=== PATIENT | male | born 1955 | race African-American/Black ===

== ENCOUNTER 2019-04-30 18:14 | Inpatient (IN) ==
[2019-04-30 19:17] LABS: BASO# 0.02 X1000 (0.0-0.2); BASO% 0.3 % (0.0-0.8); EOS# 0.02 X1000 (0.0-0.7); EOS% 0.3 % (0.0-10.0); HEMATOCRIT 35.5 % (42.0-52.0); IMM GRAN# 0.02 X1000 (0.0-0.04); IMM GRAN% 0.3 % (0.0-0.5); LYMPH# 1.11 X1000 (1.2-3.4); LYMPH% 17.4 % (20.5-51.1); MCH 30.7 PG (27-31); MCHC 33.8 g/dL (33-37); MCV 90.8 FL (81-99); MONO# 0.78 X1000 (0.11-0.59); MONO% 12.2 % (1.7-9.3); MPV 8.9 FL (7.4-10.4); NEUT# 4.42 X1000 (1.4-6.5); NEUT% 69.5 % (42.2-75.2); PLT 233 X1000 (130-400); RBC 3.91 XMIL (4.7-6.1); RDW 13.7 % (11.5-14.5); WBC 6.37 X1000 (4.8-10.8)
[2019-04-30 19:36] LABS: AGAP 19; ALBUMIN 4.2 g/dL (3.5-5.0); ALKALINE PHOSPHATASE 83 U/L (32-122); BUN 9 mg/dL (8-22); CALCIUM 8.5 mg/dL (8.8-10.2); CHLORIDE 94 mmol/L (98-107); CK PROFILE 202 U/L (24-204); COSMO 269; CREATININE 0.7 mg/dL (0.7-1.2); ESTIMATED GFR > 60; GLUCOSE 127 mg/dL (70-104); GOT 79 U/L (10-34); GPT 31 U/L (10-44); MAGNESIUM 1.6 mg/dL (1.5-2.7); POTASSIUM 3.7 mmol/L (3.5-5.1); SODIUM 134 mmol/L (136-145); TCO2 22 mmol/L (25-35); TOTAL PROTEIN 7.5 g/dL (6.3-8.3)
[2019-04-30] MEDS ORDERED: NS 1,000 ML IV ONE (20:25)
--- NOTE | 2019-04-30 20:26 | PROVIDER DOCUMENTATION ---
This chart was entered by Lizabeth Sandoval Scribe, acting as scribe for Haris Bryant MD. HPI-Syncope/Dizziness - General Chief Complaint: Syncope Stated Complaint: PASSING OUT, BODY NUMB Time Seen by Provider: 04/30/19 19:05 Source: patient Allergies/Adverse Reactions: Patient Allergies Allergy/AdvReac Type Severity Reaction Status Date / Time No Known Allergies Allergy Verified 04/30/19 18:45 Home Medications: Home Medication List Medication Instructions Recorded Confirmed Last Taken Type Clindamycin [Cleocin] 300 mg PO Q6HR #30 capsule 07/25/17 Unknown Rx - History of Present Illness-Syncope/Dizzy Nature of Presenting Problem: pt is a 63 yr old male presenting with complaint of dizziness, fall, right knee pain, pt reports intermittent dizziness today, fall at 0930 this am onto right knee. pt reports no recollection of fall, just found self on the floor and his knee hurt. pt denies any other pain or injury. Prior Episodes: reports: multiple episodes today Onset/Duration: reports: this morning (0930) Timing: reports: intermittent Position/Activity at time of episode: reports: standing Symptoms prior to episode: reports: lightheaded. denies: nausea/vomiting, confusion, rapid heart beat Context: reports: lost consciousness, collapsed Loss of Consciousness: brief (seconds) Location of injury. (If syncope resulted in an injury.): reports: RLE (right knee) Current Symptoms: reports: weakness, lightheaded, dizzy Recently Seen Here or By Another Healthcare Provider: No - Dizziness Severity in ED: reports: mild Dizziness Related Current/Associated Symptoms: reports: weakness, lightheaded, dizzy Any recent trauma/injury?: reports: minor (knee) Modifying Factors: improves with: nothing Patient usually:: reports: walks without assistance Review of Systems - Adult - REVIEW OF SYSTEMS - ADULT Constitutional: reports: fatique. denies: chills, fever Eyes: denies: blurred vision, double vision Ears, Nose, Mouth & Throat: reports: no symptoms reported Cardiovascular: reports: syncope. denies: chest pain, palpitations Respiratory: denies: cough, shortness of breath Gastrointestinal: denies: abdominal pain, diarrhea, nausea, vomiting Genitourinary: denies: dysuria, frequency, flank pain Musculoskeletal: denies: back pain, joint pain, neck pain Integumentary: reports: no symptoms reported Neurological: reports: dizziness/vertigo. denies: headache/migraines, syncope Psychiatric: reports: no symptoms reported Endocrine: reports: no symptoms reported Hematologic/Lymphatic: reports: no symptoms reported Allergic/Immunologic: reports: no symptoms reported All Other Systems: Reviewed and Negative Past History - Adult - PAST MEDICAL HISTORY-ADULT Review of Records: reports: Old Records Reviewed, Nursing Assessment Review, Medications Reviewed, Social history reviewed & non-contributory. Major Childhood Illnesses: reports: denies history Cardiovascular: reports: HTN Respiratory: reports: COPD Gastrointestinal: reports: denies history Obstetrical/Gynecological: reports: denies history Genitourinary: reports: denies history Musculoskeletal: reports: denies history Neurological: reports: denies history Endocrine/Immune: reports: denies history Other Conditions: reports: denies history - PRIOR SURGERIES/PROCEDURES Surgical/Procedure History: reports: reviewed, not pertinent - IMMUNIZATION STATUS Childhood Immunizations: See Nurse Assessment Flu Vaccine: See Nurse Assessment - FAMILY HISTORY Family History: reviewed, not pertinent - SOCIAL HISTORY Substance Use: alcohol Alcohol Use Frequency: every day (1pt liquor, 6pk beer daily) Living Situation: family Physical Exam-General - PHYSICAL EXAM-ADULT Initial Vital Signs Reviewed: Yes - CONSTITUTIONAL General Appearance: appears well, alert, no apparent distress - EYES Eyes: PERRL/EOMI - HEAD, EARS, NOSE, MOUTH & THROAT HENMT: normocephalic/atraumatic, moist mucous membranes - NECK Neck: non-tender, full range of motion, supple, normal inspection - RESPIRATORY Respiratory: chest non-tender, lungs clear, normal breath sounds, no respiratory distress, no accessory muscle use - CARDIOVASCULAR Cardiovascular: normal peripheral pulses, regular rate, rhythm - GASTROINTESTINAL (ABDOMEN) Abdominal Exam: normal bowel sounds, non tender, soft - LYMPHATIC Lymphatic: no adenopathy - MUSCULOSKELETAL Back Exam: normal inspection, no CVA tenderness, no vertebral tenderness Extremity: joint effusion (right knee), tenderness (right knee). negative: normal range of motion (decreased ROM right knee), deformity - SKIN Integumentary: normal color, normal turgor, warm/dry - NEUROLOGIC Neurologic: grossly normal - PSYCHIATRIC Psych/Mental Status: normal mood/affect Progress - PLAN OF CARE/RESULTS Progress/Plan/Lab Results: Vital Signs - 8 hr 04/30/19 18:25 04/30/19 19:25 04/30/19 19:45 Temperature 98 F Pulse Rate 86 92 H Pulse Rate [Sitting] 98 H Pulse Rate [Standing] 110 H Pulse Rate [Supine] 100 H Respiratory Rate 18 Blood Pressure 170/79 139/77 Blood Pressure [Sitting] 133/83 Blood Pressure [Standing] 98/60 Blood Pressure [Supine] 145/86 O2 Sat by Pulse Oximetry 98 99 Laboratory Results - last 24 hr 04/30/19 04/30/19 04/30/19 19:01 19:01 19:01 WBC 6.37 RBC 3.91 L Hgb 12.0 L Hct 35.5 L MCV 90.8 MCH 30.7 MCHC 33.8 RDW Std Deviation 13.7 Plt Count 233 MPV 8.9 Immature Gran % (Auto) 0.3 Neut % (Auto) 69.5 Lymph % (Auto) 17.4 L [place] % (Auto) 12.2 H Eos % (Auto) 0.3 Baso % (Auto) 0.3 Immature Gran # (Auto) 0.02 Neut # (Auto) 4.42 Lymph # (Auto) 1.11 L [place] # (Auto) 0.78 H Eos # (Auto) 0.02 Baso # (Auto) 0.02 Sodium 134 L Potassium 3.7 Chloride 94 L Carbon Dioxide 22 L Anion Gap 19 BUN 9 Creatinine 0.7 Estimated GFR/1.73 m2 > 60 BUN/Creatinine Ratio 13 Glucose 127 H POC Glucose Calculated Osmolality 269 Calcium 8.5 L Magnesium 1.6 Total Bilirubin 0.40 AST 79 H ALT 31 Alkaline Phosphatase 83 Creatine Kinase 202 Troponin T Total Protein 7.5 Albumin 4.2 Globulin 3.0 Albumin/Globulin Ratio 1.0 Plasma/Serum Ethyl Alc 75 H 04/30/19 04/30/19 19:01 19:14 WBC RBC Hgb Hct MCV MCH MCHC RDW Std Deviation Plt Count MPV Immature Gran % (Auto) Neut % (Auto) Lymph % (Auto) [place] % (Auto) Eos % (Auto) Baso % (Auto) Immature Gran # (Auto) Neut # (Auto) Lymph # (Auto) [place] # (Auto) Eos # (Auto) Baso # (Auto) Sodium Potassium Chloride Carbon Dioxide Anion Gap BUN Creatinine Estimated GFR/1.73 m2 BUN/Creatinine Ratio Glucose POC Glucose 129 H Calculated Osmolality Calcium Magnesium Total Bilirubin AST ALT Alkaline Phosphatase Creatine Kinase Troponin T < 0.010 Total Protein Albumin Globulin Albumin/Globulin Ratio Plasma/Serum Ethyl Alc Orders Category Date Time Status ED: Orthostatic Vital Signs (E DIRECTED Care 04/30/19 19:21 Active Finger Stick Blood Sugar (ED) DIRECTED Care 04/30/19 18:31 Completed Orthostatic Vital Signs NOW Care 04/30/19 18:31 Active Saline Loc NOW Care 04/30/19 18:[address] HEAD W/O CONTRAST [CT] Stat Exams 04/30/19 19:21 Completed KNEE 3 VIEWS RIGHT [RAD] Stat Exams 04/30/19 19:21 Completed ALCOHOL BLOOD Stat Lab 04/30/19 19:01 Completed CBC WITH DIFF [HEME] Stat Lab 04/30/19 19:01 Completed CK PROFILE [SP CHEM] Stat Lab 04/30/19 19:01 Completed COMPREHENSIVE METABOLIC PANEL [CHEM] Stat Lab 04/30/19 19:01 Completed MAGNESIUM [CHEM] Stat Lab 04/30/19 19:01 Completed TROPONIN T Stat Lab 04/30/19 19:01 Completed UA NIMS W/REFLEX CULT PL [URINALYSIS] Stat Lab 04/30/19 18:33 Uncollected URINE DRUG SCREEN PL Stat Lab 04/30/19 18:33 Uncollected 0.9% Sodium Chloride Inj [Ns] 1,000 ml Med 04/30/19 20:25 Active IV 999 mls/hr EKG [EKG] Stat Ther 04/30/19 18:31 Ordered Result Diagrams: 04/30/19 19:01 04/30/19 19:01 - XRAY 1 XRAY: Right XRAY Study: Knee Impression: Abnormal (Signed EXAM: KNEE 3 VIEWS RIGHT - 04/30/2019 HISTORY: FALL TECHNIQUE: Right knee three views COMPARISON: None. FINDINGS: There is fracture of the patella which appears to be comminuted but is nondisplaced. There is no other fracture or dislocation identified. There is thickening of the suprapatellar bursa consistent with joint effusion or hemorrhage. There are mild degenerative changes. There are atherosclerotic calcifications noted. IMPRESSION: Fracture of patella. Electronically signed by Uzair Grissom 04/30/2019 8:25 PM 04/30/192024 Interpreting Physician: Uzair Grissom MD Dictated Date/Time: 04/30/192023 cc: Haris Bryant MD; None,PCP) Comparison with other Films: no prior study - CT/MRI 1 CT Study: Head Impression: Normal (Signed EXAM: CT HEAD W/O CONTRAST - 04/30/2019 HISTORY: SYNCOPE TECHNIQUE: CT head without contrast COMPARISON: None. FINDINGS: There is no evidence of intracranial hemorrhage, mass effect, midline shift, or hydrocephalus. There is no evidence of infarct, although acute infarcts may not be immediately visible. There is no evidence of skull fracture. The skull is possibly osteopenic. IMPRESSION: No visible acute intracranial abnormality. No hemorrhage or mass effect. The skull is possibly osteopenic. This exam was performed using automated exposure control, adjustment of mA or kV according to patient size, and/or use of iterative reconstruction technique. Electronically signed by Uzair Grissom 04/30/2019 8:24 PM 04/30/192023 Interpreting Physician: Uzair Grissom MD Dictated Date/Time: 04/30/192020 cc: Haris Bryant MD; None,PCP) Comparison with other Films: no prior study - CONSULTS/PCP/HOSPITALIST Notification #1 *Consult/PCP/Hospitalist*: DR BYERS Time Discussed: 20:57 Reason/Comments: ADVISED KNEE IMMOBILIZER, F/U IN OFFICE Consult Disposition: F/U in office #2 Consult: DR BA Time Discussed: 21:06 Consult Disposition: Admit (OBSERVATION) Departure - Departure Date of Disposition Decision: 04/30/19 Time of Disposition Decision: 21:06 DIAGNOSIS: Orthostatic hypotension, Closed fracture of right patella Disposition: ADMITTED INPATIENT 09 Certified Medical Emergency: Emergent Condition: Stable Referrals and Follow-Ups: None,PCP [Primary Care Provider] - - Critical Care Note This patient required my direct & personal management of CC.: No Attestation - Physician/ COMPA Attestation Patient care was provided by Advanced Practice Provider:: No The physician spent face to face time with patient:: Yes Advanced Practice Provider documentation review:: Supervising physician onsite and consulted in the evaluation and care of this patient. The physician did have a face to face encounter with the patient. This chart was documented by the indicated scribe, (Lizabeth Sandoavl Scribe) and accurately reflects the services I performed and decisions made by me, Haris Bryant MD, as attested by the provider's signature.
[2019-04-30 21:49] LABS: BILIRUBIN URINE NEGATIVE (NEGATIVE); BLOOD URINE 1+ (NEGATIVE); CLARITY CLEAR (CLEAR); COLOR YELLOW; GLUCOSE URINE NEGATIVE (NEGATIVE); KETONE URINE TRACE mg/dL (NEGATIVE); LEUKOCYTES URINE NEGATIVE (NEGATIVE); NITRITE URINE NEGATIVE (NEGATIVE); PROTEIN URINE TRACE mg/dL (NEGATIVE); SP GRAVITY URINE 1.015; URINE BACTERIA NEGATIVE /HFP; URINE CAST NONE SEEN /LPF; URINE CRYSTAL NONE SEEN /HPF; URINE EPITHELIAL CELLS <10 /HPF (<10); URINE RBC <10 /HPF (<10); URINE SOURCE CLEAN CATCH; URINE WBC <10 /HPF (<10); URINE YEAST NONE SEEN /HPF; UROBILINOGEN URINE 1 mg/dL
[2019-04-30 22:02] LABS: UR AMPHETAMINES QUAL NONE DETECTED (NONE DETECT); UR BARBITUATES QUAL NONE DETECTED (NONE DETECT); UR BENZODIAZEPIN QUAL NONE DETECTED (NONE DETECT); UR CANNABINOIDS QUAL NONE DETECTED (NONE DETECT); UR COCAINE QUAL NONE DETECTED (NONE DETECT); UR METHADONE QUAL NONE DETECTED (NONE DETECT); UR METHAMPHETAMINE QUAL NONE DETECTED (NONE DETECT); UR OPIATES QUAL NONE DETECTED (NONE DETECT); UR OXYCODONE QUAL NONE DETECTED (NONE DETECT); UR PCP QUAL NONE DETECTED (NONE DETECT); UR PROPOXYPHENE QUAL NONE DETECTED (NONE DETECT); UR TCA QUAL NONE DETECTED (NONE DETECT)
[2019-05-01] MEDS ORDERED: NICODERM PATCH TD ONE (00:28)
[2019-05-01] MEDS: PRINIVIL PO SCH (08:26)
[2019-05-01] MEDS: LIBRIUM PO SCH ×3 (09:27→21:47)
[2019-05-01] MEDS ORDERED: ZOFRAN IV PRN (09:31)
[2019-05-01] MEDS ORDERED: TYLENOL PO PRN (09:31)
--- NOTE | 2019-05-01 11:00 | HISTORY AND PHYSICAL ---
PRIMARY CARE PHYSICIAN: None. CHIEF COMPLAINT: Syncope with fall. HISTORY OF PRESENT ILLNESS: Mr. Tijerina is a 63-year-old -Prydeinig male who presented to the ER with past medical history of COPD, hypertension, arthritis to the left hip, ETOH abuse and nicotine dependency. The patient states that he was at home at about 9:30 in the morning and when he stood up, he became dizzy and fell. He actually hit his head and his lip and stated that he hurt his right knee. The patient decided to come to the ER at that time. is in the room and stated that when the patient was in the ER waiting room, the patient had some kind of episode where he became very diaphoretic and his eyes rolled in the back of his head and his fingers curled. The patient was unresponsive less than a minute. The was able to shake him and eventually get him to wake back up. The patient has not had any episodes since then. Laboratory findings in the ER show a sodium of 134, plasma alcohol level was 75. Urine drug screen is negative. X-ray of the right knee shows a fracture of the patella. CT of the head shows no acute abnormality. PAST MEDICAL HISTORY: COPD, hypertension, arthritis to the left hip, ETOH abuse, nicotine dependency. PAST SURGICAL HISTORY: Surgery to the left 3rd digit for work-related injury. FAMILY HISTORY: Mother is positive for [place], diabetes and hypertension. SOCIAL HISTORY: The patient lives with his in [place]. 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 States he drinks 1 pint of alcohol per day. Smokes 2 packs of cigarettes per day. Denies any drug abuse. ALLERGIES: No known drug allergies. MEDICATIONS: No home medications. LABS AND DIAGNOSTICS: White blood cell count 6.37, red blood cell count 3.91, hemoglobin 12, hematocrit 35.5, platelet count is 233,000. Sodium 134, potassium 3.7, chloride 94, carbon dioxide 22, BUN is 9, creatinine is 0.7, GFR is greater than 60, glucose is 127, calcium is 8.5, magnesium is 1.6, total bilirubin is 0.4, AST is 79, ALT is 31, alkaline phosphatase is 83, creatine kinase is 202, troponin is less than 0.01. Urinalysis shows trace protein and 1+ blood. Urine toxicology is negative. Plasma alcohol level is 75. X-ray to the right knee shows a fracture of the patella. Head CT shows no visible acute intracranial abnormality. REVIEW OF SYSTEMS: The patient is awake, alert, and oriented. He denies any fevers, chills, night sweats, or weight loss, lethargy, malaise, or fatigue. There are no rashes, bruising. There is a small area to his lip from fall. There is no trauma to the head. The patient did have some complaints of dizziness when he fell. He denies a headache. States he did have a syncopal episode when he fell that lasted less than a minute. The patient denies any seizures. The patient denies any blurred vision, photophobia, or acute visual changes. Denies any tinnitus, pain to the ears or any hearing changes. There are no lumps or swelling of the neck area or pain or stiffness. The patient denies any excessive thirst, increased urination. The patient denies any palpitations, or chest pain, orthopnea, or leg edema. The patient denies a cough, dyspnea, or hemoptysis. The patient denies any nausea, vomiting, diarrhea or constipation. The patient denies any hematuria or dysuria. The patient is positive for joint pain to the left hip and the right knee. States he has had some weakness noted from his left hip area. The patient denies any bruising. The patient denies any depression or anxiety. PHYSICAL EXAMINATION: VITAL SIGNS: Temperature 98.7 degrees, pulse rate 83, respiratory rate 20, blood pressure 195/94, O2 saturation 100% on room air. Weight 145 pounds, height 5 feet 11 inches. GENERAL: This is a 63-year-old -Prydeinig male. He is lying in the bed. He is in no acute distress. He is well nourished and well developed. HEENT: Normocephalic. There is a small place to the lip area from trauma. Pupils are equal, round, reactive to light. Sclerae is anicteric. Extraocular movements are intact. Mucous membranes are moist. NECK: Supple. No lymphadenopathy. Trachea is midline. No JVD. CARDIOVASCULAR: Regular rate and rhythm. No murmurs, gallops, or rubs appreciated. RESPIRATORY: Lung sounds are clear with equal chest excursion. Respirations are nonlabored with no accessory muscle usage. GI: Abdomen is soft, nontender, nondistended. Bowel sounds are present x4. NEUROLOGIC: Cranial nerves 2-12 intact. The patient is awake, alert, and oriented. Follows all commands. No abnormalities noted. MUSCULOSKELETAL: Full distal strength noted. No abnormalities of gaits. No deformity. EXTREMITIES: There is no clubbing, no cyanosis, no edema. DP and PT pulses are present and palpable. SKIN: Warm and dry. There is no rashes or bruises. No diaphoresis. ASSESSMENT AND PLAN: 1. Syncopal episode. We will admit this patient to the medical floor. We have administered a bolus of IV fluid in the ER. We will continue IV fluids for hydration with normal saline at 75 mL an hour. We will monitor the patient's vital signs. 2. Patellar fracture. Dr. Mares was called. He recommended the patient to be placed in a knee brace and to follow up with the patient outpatient. The patient does have a knee brace noted to the right leg at this time. I have consulted Physical Therapy to help with ambulation with this patient. The patient will follow up with Dr. Mares outpatient as recommended by him. 3. Hypertension. We will start this patient on lisinopril 10 mg p.o. daily. We will monitor his blood pressure routinely. 4. ETOH abuse. We will start the patient on Librium 25 mg p.o. q.6 hours. We are also replacing his thiamine 100 mg p.o. daily and folate 1 mg p.o. daily. We will also place the patient on IV fluid hydration of normal saline at 75 mL an hour. I have provided the patient with ETOH cessation information. 5. Nicotine dependency. We provided smoking cessation to the patient. We have also started him on a nicotine patch daily. 6. Gastrointestinal prophylaxis. Start this patient on Prilosec 40 mg p.o. daily. 7. DVT prophylaxis. Place this patient on ADALID hose. We will ambulate this patient per physical therapy. We have admitted this patient to the medical floor. We have started him on IV fluid hydration, normal saline at 75 mL an hour. We are replacing his thiamine and folic acid. We are also placing him on Librium 25 mg p.o. q.6 hours. Physical therapy has been consulted for ambulation. He has a knee brace on his right knee as recommended by Dr. Mares. He will follow up with Dr. Mares outpatient. All further treatment pending hospital course and lab data. Dictated by DONALD Doss for Gilmer Radford MD cc: Gilmer Radford MD MTDD
[2019-05-01] MEDS: FOLIC ACID PO SCH (11:16)
[2019-05-01] MEDS: VITAMIN B-1 PO SCH (11:16)
[2019-05-01] MEDS: NICODERM PATCH TD SCH (11:16)
[2019-05-01] MEDS: PRILOSEC PO SCH (11:16)
[2019-05-01] MEDS: NS 1,000 ML IV SCH (11:17)
[2019-05-01] MEDS: NORCO-5 PO PRN ×2 (12:12→18:11)
--- NOTE | 2019-05-01 17:49 | HISTORY AND PHYSICAL ---
ADDENDUM: Patient seen and examined by myself. Full note dictated and discussed with nurse practitioner. Patient presented to the hospital, apparently had a syncopal episode and fell. He has patellar fracture on his right knee. Blood pressure is elevated at 192/96. The patient also has a longstanding history of alcoholism, has been drinking for 40 years. I expect this has a lot to do with this syncopal episode. We are going to admit him to the hospital, place him on telemetry, check an echocardiogram. We will attempt better blood pressure control. We will place him on Librium to attempt to prevent withdrawal. Further orders as needed. Please see full note. cc: Gilmer Radford MD
[2019-05-02] MEDS: NORCO-5 PO PRN ×2 (00:14→19:50)
[2019-05-02] MEDS: NS 1,000 ML IV SCH ×3 (00:14→20:00)
[2019-05-02] MEDS ORDERED: LIBRIUM PO ONE ×2 (02:20→02:22)
[2019-05-02] MEDS ORDERED: ATIVAN IV ONE ×2 (02:35→02:48)
[2019-05-02] MEDS ORDERED: ATIVAN ONE (02:39)
[2019-05-02] MEDS ORDERED: HALDOL IV ONE (02:49)
[2019-05-02] MEDS: LIBRIUM PO SCH ×4 (03:44→20:44)
[2019-05-02 05:45] LABS: BASO# 0.01 X1000 (0.0-0.2); BASO% 0.2 % (0.0-0.8); EOS# 0.01 X1000 (0.0-0.7); EOS% 0.2 % (0.0-10.0); HEMATOCRIT 34.6 % (42.0-52.0); HEMOGLOBIN 11.4 g/dL (14.0-18.0); IMM GRAN# 0.03 X1000 (0.0-0.04); IMM GRAN% 0.5 % (0.0-0.5); LYMPH# 0.59 X1000 (1.2-3.4); LYMPH% 8.9 % (20.5-51.1); MCH 30.1 PG (27-31); MCHC 32.9 g/dL (33-37); MCV 91.3 FL (81-99); MONO% 12.1 % (1.7-9.3); MPV 9.6 FL (7.4-10.4); NEUT# 5.17 X1000 (1.4-6.5); NEUT% 78.1 % (42.2-75.2); PLT 179 X1000 (130-400); RBC 3.79 XMIL (4.7-6.1); RDW 13.3 % (11.5-14.5); WBC 6.61 X1000 (4.8-10.8)
[2019-05-02 06:11] LABS: AGAP 13; BUN 5 mg/dL (8-22); CALCIUM 8.4 mg/dL (8.8-10.2); CHLORIDE 94 mmol/L (98-107); COSMO 262; CREATININE 0.7 mg/dL (0.7-1.2); ESTIMATED GFR > 60; GLUCOSE 98 mg/dL (70-104); MAGNESIUM 1.6 mg/dL (1.5-2.7); POTASSIUM 3.1 mmol/L (3.5-5.1); SODIUM 132 mmol/L (136-145); TCO2 26 mmol/L (25-35)
[2019-05-02] MEDS: PRILOSEC PO SCH (06:13)
[2019-05-02] MEDS ORDERED: KLOR-CON PO ONE (07:32)
[2019-05-02] MEDS ORDERED: ATARAX PO PRN (09:29)
[2019-05-02] MEDS ORDERED: BENTYL PO PRN (09:29)
[2019-05-02] MEDS ORDERED: SALINE LOCK IV FLUID XX ONE (09:29)
[2019-05-02] MEDS ORDERED: M.V.I.-12 10 ML, FOLIC ACID 1 MG, MAGNESIUM SULFATE 1 GM, THIAMINE 100 MG in NS 1,000 ML IV ONE (11:00)
[2019-05-02] MEDS: NICODERM PATCH TD SCH (11:57)
[2019-05-02] MEDS: PRINIVIL PO SCH (11:59)
[2019-05-02] MEDS: FOLIC ACID PO SCH (12:00)
[2019-05-02] MEDS: VITAMIN B-1 PO SCH (12:01)
--- NOTE | 2019-05-02 14:18 | PROGRESS NOTE ---
DATE: 05/02/2019 SUBJECTIVE: Patient currently is sedated. 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 He became agitated, blood pressure elevated, heart rate into the 160s and 180s. He was yelling, screaming, combative. We had already had him on Librium, but unfortunately this does not appear to be adequate enough. We increased his Ativan to 1 mg IV. Again, this was not enough to assist with his alcohol withdrawal, and he was given 2 more mg of Ativan and Haldol. Finally, he was able to calm down, and heart rate dropped. Apparently prior to coming to the ER, unbeknownst to us, the family now admits that Mr. Tijerina had already had a seizure from his alcohol withdrawal. PHYSICAL EXAMINATION: Vital Signs: Reviewed. Temperature 98 degrees, pulse 86, respiratory 18, BP 111/68. General: Patient is in no respiratory distress. He is lying comfortably in the bed. The family is at the bedside. HEENT: Normocephalic. Neck: Supple. Cardiovascular: Regular rate. Chest: Clear. Abdomen: Soft. Extremities: Moves all extremities. Neurologic: No focal changes. ASSESSMENT: 1. Alcohol withdrawal with delirium tremens. 2. Seizure. 3. Patellar fracture. Most likely that was the cause of his fall was the seizure as new family members have arrived and have given more information. 4. Hypertension. 5. Chronic alcohol abuse. 6. Nicotine dependence. PLAN: At this point, we are going to replace his potassium which is 3.1, move him to the ICU, and continue to follow. We will continue Ativan, and we will increase his Librium. Further orders as needed. cc: Gilmer Radford MD
[2019-05-02] MEDS: ATIVAN IV PRN ×3 (14:42→21:56)
--- NOTE | 2019-05-02 15:35 | ECHO REPORT ---
ORDER DATE: 05/01/2019 INTERPRETING PHYSICIAN: Erickson Jones MD. CLINICAL INDICATIONS: 63-year-old patient with syncope. The study was technically very difficulty. The patient was having DTs. M-MODE MEASUREMENTS: Left ventricle end diastole: Cannot properly measured. Left ventricle end systole: cm. Posterior wall: 1.2 cm. Interventricular septum: 1.2 cm. Left atrium: 3.8 cm. Aortic diameter: 3.3 cm. SUMMARY OF 2-DIMENSIONAL IMAGIN. The left ventricular function appears to be at the lower limits of normal, ejection fraction is estimated at 55%. There is no wall motion abnormality noted. 2. The aortic valve shows some sclerosis of the cusps. 3. The mitral valve shows mild degree of regurgitation. Color flow mapping of the aortic valve is unremarkable. 4. The pulse wave Doppler of mitral inflow was not obtained. 5. The tissue Doppler was not obtained either. 6. The tricuspid valve shows [id number] degree of regurgitation. 7. Pulmonary pressure appears to be in the order of 33-38 mmHg. 8. The pulmonic valve was not visualized in this study. 9. There is no pericardial effusion, no mass, and no thrombus. SUMMARY: This study was limited. It shows preserved left ventricular systolic function at the lower limits, ejection fraction of 55%. Mild degree of aortic valve sclerosis without stenosis. Minimal degree of mitral regurgitation. [id number] tricuspid valve regurgitation, pulmonary pressure of 33-38 mmHg. Clinical correlation is recommended. cc: Erickson Jones MD
[2019-05-02] MEDS: ROBAXIN PO PRN (19:50)
[2019-05-03] MEDS: ATIVAN IV PRN ×4 (00:01→21:50)
[2019-05-03] MEDS: NORCO-5 PO PRN (01:51)
[2019-05-03] MEDS: ROBAXIN PO PRN (01:54)
[2019-05-03] MEDS: NS 1,000 ML IV SCH (03:53)
[2019-05-03] MEDS: LIBRIUM PO SCH ×4 (04:33→20:25)
[2019-05-03] MEDS: PRILOSEC PO SCH (06:59)
[2019-05-03 07:03] LABS: HEMATOCRIT 30.6 % (42.0-52.0); HEMOGLOBIN 9.8 g/dL (14.0-18.0); MCH 29.9 PG (27-31); MCV 93.3 FL (81-99); MPV 10.3 FL (7.4-10.4); RBC 3.28 XMIL (4.7-6.1); RDW 13.4 % (11.5-14.5); WBC 8.44 X1000 (4.8-10.8)
[2019-05-03 07:20] LABS: AGAP 14; ALBUMIN 2.9 g/dL (3.5-5.0); ALKALINE PHOSPHATASE 65 U/L (32-122); BUN 6 mg/dL (8-22); CALCIUM 7.8 mg/dL (8.8-10.2); CHLORIDE 100 mmol/L (98-107); COSMO 264; CREATININE 0.5 mg/dL (0.7-1.2); ESTIMATED GFR > 60; GLUCOSE 91 mg/dL (70-104); GOT 44 U/L (10-34); GPT 15 U/L (10-44); MAGNESIUM 1.7 mg/dL (1.5-2.7); POTASSIUM 3.3 mmol/L (3.5-5.1); SODIUM 133 mmol/L (136-145); TCO2 20 mmol/L (25-35); TOTAL PROTEIN 6.1 g/dL (6.3-8.3)
[2019-05-03] MEDS ORDERED: NS + KCL 20 MEQ 1,000 ML IV SCH (07:45)
[2019-05-03] MEDS: PRINIVIL PO SCH (09:28)
[2019-05-03] MEDS: VITAMIN B-1 PO SCH (09:28)
[2019-05-03] MEDS: NICODERM PATCH TD SCH (09:29)
[2019-05-03] MEDS: FOLIC ACID PO SCH (09:29)
--- NOTE | 2019-05-03 14:05 | PROGRESS NOTE ---
DATE: 05/03/2019 SUBJECTIVE: Patient is still agitated at time, confused at others. He currently is sleeping, as he has just received medication. OBJECTIVE: Vital Signs: Temperature 97.4, pulse 100 respiratory rate 18, BP 144/92. General: Patient is sleeping. He is in no respiratory distress. He does awaken and take oral Librium. He did require some IV Ativan overnight. HEENT: Normocephalic, atraumatic. MARQUIS. Neck: Supple. Cardiovascular: Regular rate. No murmurs. Chest: Clear. No crackles. No wheezing. Abdomen: Soft, nondistended. Extremities: Moves all extremities. Neurologic: Unable to assess as he is currently sedated. ASSESSMENT: 1. Acute alcohol withdrawal. We will continue stabilization in the ICU with Librium and p.r.n. Ativan. 2. Hypokalemia. 3. Hyponatremia. 4. Patellar fracture secondary to recent fall. 5. Hypertension. PLAN: We will continue patient in the hospital and continue to follow. I will keep him in the ICU currently as he is still requiring p.r.n. IV Ativan. Further orders as needed. cc: Gilmer Radford MD
[2019-05-03] MEDS ORDERED: BENTYL PO PRN (14:22)
[2019-05-03] MEDS ORDERED: ATARAX PO PRN (14:22)
[2019-05-03] MEDS ORDERED: ROBAXIN PO PRN (14:39)
[2019-05-03] MEDS ORDERED: ZOFRAN IV PRN (14:39)
[2019-05-03] MEDS ORDERED: LIBRIUM PO SCH (15:00)
[2019-05-03] MEDS: VASOTEC IV SCH (17:27)
[2019-05-03] MEDS: NS + KCL 20 MEQ 1,000 ML IV SCH (19:44)
[2019-05-03] MEDS: TYLENOL PO PRN (23:46)
[2019-05-04] MEDS: ATIVAN IV PRN ×4 (00:05→22:29)
[2019-05-04] MEDS: LIBRIUM PO SCH ×6 (04:06→20:18)
[2019-05-04] MEDS: NS + KCL 20 MEQ 1,000 ML IV SCH ×3 (04:50→17:00)
[2019-05-04] MEDS: VASOTEC IV SCH ×2 (04:50→17:31)
[2019-05-04 06:26] LABS: AGAP 19; ALB/GLOB RATIO 0.6; ALBUMIN 2.8 g/dL (3.5-5.0); ALKALINE PHOSPHATASE 72 U/L (32-122); BUN 6 mg/dL (8-22); CALCIUM 9.2 mg/dL (8.8-10.2); CHLORIDE 103 mmol/L (98-107); COSMO 267; CREATININE 0.7 mg/dL (0.7-1.2); ESTIMATED GFR > 60; GLUCOSE 56 mg/dL (70-104); GOT 55 U/L (10-34); GPT 16 U/L (10-44); POTASSIUM 4.2 mmol/L (3.5-5.1); SODIUM 136 mmol/L (136-145); TCO2 14 mmol/L (25-35); TOTAL BILIRUBIN 0.97 mg/dL (0.20-1.00); TOTAL PROTEIN 7.4 g/dL (6.3-8.3)
[2019-05-04] MEDS: LOPRESSOR IV SCH ×3 (06:27→20:18)
--- NOTE | 2019-05-04 07:01 | PROGRESS NOTE ---
DATE: 05/04/2019 SUBJECTIVE: According to nursing staff, the patient has been more calmed down. He just needed two doses of Ativan. Upon my examination this morning, he is oriented in place and person. Speech is coherent. OBJECTIVE: Vital Signs: Temperature 99.2 degrees, heart rate 91, respiratory rate 23, blood pressure 181/97, O2 saturation 96% on room air. General: This is a chronically ill-appearing, 63- year-old, male, lying in bed in no acute distress. HEENT: Head is normocephalic, atraumatic. Mucous membranes dry. Poor dentition. Neck: No JVD noted. No carotid bruits. No lymphadenopathy. No thyromegaly. Cardiovascular: S1, S2 heard. No murmurs, gallops, or rubs. Regular rate and rhythm. The patient is tachycardic. Respiratory: Decreased breath sounds globally, but there are no crackles or rhonchi noted. The patient is not using any accessory muscles or having work of breathing. Abdomen: Soft, a little bit distended, but nontender to palpation. Bowel sounds present. No organomegaly. Extremities: No clubbing, cyanosis, or edema. Peripheral pulses present in both legs. Neurological: The patient is awake, oriented in person and place. Moves all 4 extremities spontaneously. LABORATORY DATA: Pending at the time of my dictation, the CBC, but the CMP shows AST of 55 with normal renal function, normal potassium. ASSESSMENT AND PLAN: 1. Alcohol withdrawal. I think this condition is getting clinically better. He is more calmed down. Not requiring too much Ativan intravenously. He has not been combative last night. He is still in physical restraints. I think at this point, what we are going to do is remove restraints, feed him, and continue to monitor this patient in the intensive care unit. Will continue with Librium and Ativan intravenously as needed. 2. Patella fracture. That is one of the reasons why the patient was admitted to the hospital. He has been already evaluated by Orthopedics, who recommended a knee brace and outpatient evaluation. 3. Hypertension. Apparently, we have started medications for high blood pressure here in the hospital. Because of his alcohol withdrawal, blood pressure has been really high. I have started Vasotec 1.25 mg intravenously every 12 hours yesterday. Blood pressure is still high, so I am going to add metoprolol 5 mg intravenously every 6 hours scheduled as well, and see how he does. The patient is also supposed to receive hydralazine as needed for elevated blood pressure. An echocardiogram has been ordered, which basically showed preserved left ventricular systolic function with ejection fraction of 55%. 4. Hypokalemia, resolved. 5. Nicotine dependence. Patient advised to stop smoking. The patient is on nicotine patch. 6. Gastrointestinal prophylaxis with Prilosec. 7. Deep vein thrombosis prophylaxis on ADALID. 8. Disposition. Will continue to monitor this patient in the intensive care unit. cc: Kvng Putnam MD
[2019-05-04] MEDS: PRILOSEC PO SCH (07:10)
[2019-05-04] MEDS: NICODERM PATCH TD SCH (08:44)
[2019-05-04] MEDS: PRINIVIL PO SCH (08:45)
[2019-05-04] MEDS: VITAMIN B-1 PO SCH (08:45)
[2019-05-04] MEDS: FOLIC ACID PO SCH (08:45)
[2019-05-04 08:57] LABS: BASO# 0.02 X1000 (0.0-0.2); BASO% 0.2 % (0.0-0.8); EOS# 0.03 X1000 (0.0-0.7); EOS% 0.2 % (0.0-10.0); HEMOGLOBIN 11.2 g/dL (14.0-18.0); IMM GRAN# 0.05 X1000 (0.0-0.04); IMM GRAN% 0.4 % (0.0-0.5); LYMPH# 0.91 X1000 (1.2-3.4); LYMPH% 7.4 % (20.5-51.1); MCH 30.4 PG (27-31); MCV 94.9 FL (81-99); MONO# 3.05 X1000 (0.11-0.59); MONO% 24.7 % (1.7-9.3); MPV 9.7 FL (7.4-10.4); NEUT% 67.1 % (42.2-75.2); PLT 191 X1000 (130-400); RBC 3.69 XMIL (4.7-6.1); RDW 13.4 % (11.5-14.5); WBC 12.36 X1000 (4.8-10.8)
[2019-05-04 10:32] LABS: LYMPHS 6 % (21-51); MONO 16 % (1-9); SEGS 78 % (42-75)
[2019-05-04] MEDS: APRESOLINE IV PRN (13:10)
[2019-05-04] MEDS: NORCO-5 PO PRN (15:02)
[2019-05-04] MEDS: TYLENOL PO PRN (21:18)
[2019-05-05] MEDS: ATIVAN IV PRN ×2 (02:36→22:15)
[2019-05-05] MEDS: LOPRESSOR IV SCH ×4 (02:36→20:24)
[2019-05-05] MEDS: NS + KCL 20 MEQ 1,000 ML IV SCH ×3 (02:37→23:51)
[2019-05-05] MEDS: LIBRIUM PO SCH (04:45)
[2019-05-05] MEDS: VASOTEC IV SCH ×2 (05:29→18:56)
[2019-05-05] MEDS: PRILOSEC PO SCH (06:23)
[2019-05-05] MEDS: NICODERM PATCH TD SCH (08:17)
[2019-05-05] MEDS: FOLIC ACID PO SCH (08:18)
[2019-05-05] MEDS: PRINIVIL PO SCH (08:18)
[2019-05-05] MEDS: VITAMIN B-1 PO SCH (08:18)
[2019-05-05 09:21] LABS: BASO# 0.01 X1000 (0.0-0.2); BASO% 0.1 % (0.0-0.8); EOS# 0.01 X1000 (0.0-0.7); EOS% 0.1 % (0.0-10.0); HEMATOCRIT 37.8 % (42.0-52.0); HEMOGLOBIN 12.2 g/dL (14.0-18.0); IMM GRAN# 0.04 X1000 (0.0-0.04); IMM GRAN% 0.5 % (0.0-0.5); LYMPH# 0.86 X1000 (1.2-3.4); LYMPH% 9.9 % (20.5-51.1); MCHC 32.3 g/dL (33-37); MCV 93.1 FL (81-99); MONO# 2.12 X1000 (0.11-0.59); MONO% 24.4 % (1.7-9.3); MPV 9.4 FL (7.4-10.4); NEUT# 5.64 X1000 (1.4-6.5); PLT 198 X1000 (130-400); RBC 4.06 XMIL (4.7-6.1); RDW 13.3 % (11.5-14.5); WBC 8.68 X1000 (4.8-10.8)
[2019-05-05 09:28] LABS: AGAP 14; ALB/GLOB RATIO 0.7; ALBUMIN 2.9 g/dL (3.5-5.0); ALKALINE PHOSPHATASE 63 U/L (32-122); BUN 7 mg/dL (8-22); CALCIUM 9.2 mg/dL (8.8-10.2); CHLORIDE 101 mmol/L (98-107); COSMO 269; CREATININE 0.6 mg/dL (0.7-1.2); ESTIMATED GFR > 60; GLUCOSE 82 mg/dL (70-104); GOT 41 U/L (10-34); GPT 15 U/L (10-44); POTASSIUM 4.2 mmol/L (3.5-5.1); SODIUM 136 mmol/L (136-145); TCO2 21 mmol/L (25-35); TOTAL BILIRUBIN 0.84 mg/dL (0.20-1.00); TOTAL PROTEIN 7.1 g/dL (6.3-8.3)
--- NOTE | 2019-05-05 09:44 | PROGRESS NOTE ---
DATE: 05/05/2019 SUBJECTIVE: According to nursing staff, since lunch yesterday, he was confused, not really combative. At night, he has been a little bit agitated, and this morning upon my examination, he continues to be confused, does not talk to me. OBJECTIVE: Vital Signs: Temperature 99.5 degrees, heart rate 106, respiratory rate 30, blood pressure 148/88, O2 saturation 99% on room air. General: This is a chronically ill-appearing, 63- year-old, male, lying in bed in no acute distress. HEENT: Head is normocephalic, atraumatic. Neck: No JVD noted. No carotid bruit. Cardiovascular: S1, S2 heard. No murmurs, gallops, or rubs. Regular rate and rhythm. Respiratory: Decreased breath sounds globally. I do not hear any crackles or rhonchi noted. The patient is not using any accessory muscles or having work of breathing. Abdomen: Soft, a little bit distended, but nontender to palpation. Bowel sounds present. No organomegaly. Extremities: No clubbing, cyanosis, or edema. Peripheral pulses present in both legs. Neurological: The patient is sleepy, does not want to talk to me. Moves all 4 extremities spontaneously. LABORATORY DATA: Pending at the time of my dictation, CBC, CMP, and ammonia level. ASSESSMENT AND PLAN: 1. Alcohol withdrawal. This condition is fluctuating up and down. At this point, he is confused, but he is not combative. At this point, will continue to monitor this patient in the intensive care unit. We may need to use physical restraints like he was requiring yesterday. Will continue with Librium and Ativan as needed. 2. Patella fracture. Aware. Orthopedics recommended a knee brace on outpatient evaluation. 3. Hypertension. The patient has been started on Vasotec and metoprolol intravenously. The patient's blood pressure is better controlled, although not completely fine. He is still tachycardic. I think we will continue with the same management. 4. Nicotine dependence. Will continue with nicotine patch. 5. Gastrointestinal prophylaxis with Prilosec. 6. Deep vein thrombosis prophylaxis with TEDs. 7. Disposition. At this point, will continue to monitor this patient in the intensive care unit. cc: Kvng Putnam MD
[2019-05-05] MEDS: LIBRIUM PO PRN ×2 (11:15→23:11)
[2019-05-05] MEDS: APRESOLINE IV PRN (21:23)
[2019-05-05] MEDS: NORCO-5 PO PRN (23:11)
[2019-05-06] MEDS: ATIVAN IV PRN ×2 (00:55→10:45)
[2019-05-06] MEDS: LOPRESSOR IV SCH ×4 (03:53→20:46)
[2019-05-06] MEDS: VASOTEC IV SCH ×2 (04:32→18:06)
[2019-05-06] MEDS: PRILOSEC PO SCH (06:02)
[2019-05-06 06:43] LABS: AGAP 14; BUN 8 mg/dL (8-22); CALCIUM 9.3 mg/dL (8.8-10.2); CHLORIDE 99 mmol/L (98-107); COSMO 270; CREATININE 0.6 mg/dL (0.7-1.2); ESTIMATED GFR > 60; GLUCOSE 95 mg/dL (70-104); SODIUM 136 mmol/L (136-145); TCO2 23 mmol/L (25-35)
[2019-05-06 08:29] LABS: BASO# 0.02 X1000 (0.0-0.2); BASO% 0.2 % (0.0-0.8); EOS# 0.02 X1000 (0.0-0.7); EOS% 0.2 % (0.0-10.0); HEMATOCRIT 35.9 % (42.0-52.0); HEMOGLOBIN 11.7 g/dL (14.0-18.0); IMM GRAN# 0.03 X1000 (0.0-0.04); IMM GRAN% 0.3 % (0.0-0.5); LYMPH# 0.99 X1000 (1.2-3.4); LYMPH% 9.5 % (20.5-51.1); MCHC 32.6 g/dL (33-37); MCV 92.1 FL (81-99); MONO# 2.01 X1000 (0.11-0.59); MONO% 19.2 % (1.7-9.3); MPV 9.5 FL (7.4-10.4); NEUT# 7.38 X1000 (1.4-6.5); NEUT% 70.6 % (42.2-75.2); PLT 268 X1000 (130-400); RDW 13.3 % (11.5-14.5); WBC 10.45 X1000 (4.8-10.8)
[2019-05-06] MEDS: FOLIC ACID PO SCH (09:05)
[2019-05-06] MEDS: VITAMIN B-1 PO SCH (09:05)
[2019-05-06] MEDS: NICODERM PATCH TD SCH (09:06)
[2019-05-06] MEDS: NS + KCL 20 MEQ 1,000 ML IV SCH ×2 (09:06→18:30)
[2019-05-06] MEDS: PRINIVIL PO SCH (09:06)
--- NOTE | 2019-05-06 09:07 | PROGRESS NOTE ---
DATE: 05/06/2019 SUBJECTIVE: Apparently around 5 a.m. today, patient started becoming very agitated and restless, so Ativan was given. Upon my examination, he was more calmed down. He is oriented to place and person. OBJECTIVE: Vital Signs: Temperature 97.5 degrees, heart rate 123, respiratory rate 29, blood pressure 165/71, O2 saturation 98% on room air. General Examination: This is a chronically ill- appearing, 63-year-old male, lying in bed, in no acute distress. Cardiovascular: S1, S2 heard. Tachycardic but no murmurs, gallops, or rubs noted. Respiratory: Decreased breath sounds globally. I do not hear any crackles or rhonchi. Patient is not using any accessory muscles or having work of breathing. Abdomen: Soft, a little bit distended but nontender to palpation. Bowel sounds present. No organomegaly. Extremities: No clubbing, cyanosis, or edema. Peripheral pulses present in both legs. Neurological: Patient is a little bit sleepy but able to answer basic questions. Me moves 4 extremities spontaneously. The patient is in four- point restraints. LABORATORY DATA: White cell count 10.45, hemoglobin 11.7, hematocrit 35.9, platelets 268,000, with normal BMP. ASSESSMENT AND PLAN: 1. Alcohol withdrawal. This condition is going on and off. At this point, he is confused but he is not combative anymore. The patient is receiving Ativan p.r.n. Sometimes he is able to take oral medications, sometimes he does not. In any case, we will continue using physical with restraints as needed and also Ativan as well. We will continue to monitor this patient closely. 2. Patella fracture. Patient wearing a knee brace. Orthopedics recommend outpatient evaluation after patient is discharged. 3. Hypertension. Because patient becomes very agitated, patient has been started on Vasotec and metoprolol IV scheduled doses at this point. We will continue with same management. 4. Nicotine dependence. We will continue with nicotine patch. 5. Deep vein thrombosis prophylaxis with TEDs. 6. Disposition. At this point, we will continue to monitor this patient closely in the intensive care unit. cc: Kvng Putnam MD [facility]
[2019-05-06] MEDS: TYLENOL PO PRN (15:16)
[2019-05-06] MEDS: TOBREX OPH SOLN RIGHT EYE SCH ×2 (15:38→21:06)
[2019-05-06] MEDS ORDERED: VIGAMOX 0.5% OPH SOLN RIGHT EYE SCH (17:00)
[2019-05-06] MEDS: APRESOLINE IV PRN (23:44)
[2019-05-07] MEDS: ATIVAN IV PRN (01:33)
[2019-05-07] MEDS: LOPRESSOR IV SCH ×4 (02:41→20:26)
[2019-05-07] MEDS: VASOTEC IV SCH ×2 (04:41→16:54)
[2019-05-07] MEDS: NS + KCL 20 MEQ 1,000 ML IV SCH (04:41)
[2019-05-07 05:12] LABS: BASO# 0.02 X1000 (0.0-0.2); BASO% 0.3 % (0.0-0.8); EOS# 0.56 X1000 (0.0-0.7); EOS% 7.1 % (0.0-10.0); HEMATOCRIT 36.5 % (42.0-52.0); HEMOGLOBIN 11.7 g/dL (14.0-18.0); IMM GRAN# 0.11 X1000 (0.0-0.04); IMM GRAN% 1.4 % (0.0-0.5); LYMPH# 0.69 X1000 (1.2-3.4); LYMPH% 8.8 % (20.5-51.1); MCHC 32.1 g/dL (33-37); MCV 90.6 FL (81-99); MONO% 16.5 % (1.7-9.3); MPV 10.8 FL (7.4-10.4); NEUT% 65.9 % (42.2-75.2); PLT 245 X1000 (130-400); RBC 4.03 XMIL (4.7-6.1); RDW 13.2 % (11.5-14.5); WBC 7.88 X1000 (4.8-10.8)
[2019-05-07 05:35] LABS: AGAP 16; BUN 7 mg/dL (8-22); CHLORIDE 100 mmol/L (98-107); COSMO 264; CREATININE 0.5 mg/dL (0.7-1.2); ESTIMATED GFR > 60; GLUCOSE 97 mg/dL (70-104); POTASSIUM 4.6 mmol/L (3.5-5.1); SODIUM 133 mmol/L (136-145); TCO2 17 mmol/L (25-35)
[2019-05-07] MEDS: PRILOSEC PO SCH (06:53)
--- NOTE | 2019-05-07 08:34 | PROGRESS NOTE ---
DATE: 05/07/2019 SUBJECTIVE: The patient continues to be confused, not really combative. He has received so far one dose of Ativan when patient wants to get out of bed and try to go home. Upon my examination today, he looks still confused. He thinks that his is next him, while she truly in the waiting room. OBJECTIVE: Vital Signs: Temperature 97.8 degrees, heart rate 110, respiratory rate 25, blood pressure 171/96, O2 saturation 100% on room air. General Examination: This is a chronically ill- appearing, 63-year-old, male, lying in bed, in no acute distress. Cardiovascular Examination: S1 and S2 heard. No murmurs, gallops, or rubs. Regular rate and rhythm. Tachycardic. Respiratory Examination: Decreased breath sounds globally. I do not hear any crackles or rhonchi. Patient is not using any accessory muscles or having work of breathing. Abdomen: Soft. A little distended but nontender to palpation. Bowel sounds present. No organomegaly. Extremities: No clubbing, cyanosis, or edema. Peripheral pulses present in both legs. Neurological Examination: The patient is awake but confused, not combative. Answered basic questions. Oriented to person and place. Moved four extremities spontaneously. He continues to be in four-point restraints. Laboratory Data: White cell count 7.88, hemoglobin 11.7, hematocrit 36.5, and platelets 245,000. Sodium 133, normal creatinine at 0.5. ASSESSMENT AND PLAN: 1. Alcohol withdrawal. The patient is confused on and off. Sometimes, he does not take his Librium. I am going to start baclofen for alcohol withdrawal. That is definitely less sedating than the Librium. Sometimes, he is able to take oral medications and sometimes he does not. Because of this persistent encephalopathy, I prefer to consult neurology and see what else we can do for this patient. 2. Patellar fracture. The patient is wearing a knee brace. We will continue with the same management. Orthopedics will see this patient as an outpatient. 3. Hypertension. Blood pressure is still elevated. Patient is on Vasotec and metoprolol intravenously, scheduled doses. At this point, we will continue with the same management. 4. Nicotine dependence. We will continue with a nicotine patch. 5. Deep vein thrombosis prophylaxis with TEDs. 6. Disposition. At this point, I think, because he is not combative anymore, although he is still confused, we can send him to a PVC unit. cc: Kvng Putnam MD
[2019-05-07] MEDS: NICODERM PATCH TD SCH (08:49)
[2019-05-07] MEDS: CLINIMIX E 4.25%-5% SOLUTION 1,000 ML IV SCH ×2 (08:49→17:55)
[2019-05-07] MEDS: FOLIC ACID PO SCH (08:50)
[2019-05-07] MEDS: PRINIVIL PO SCH (08:51)
[2019-05-07] MEDS: VITAMIN B-1 PO SCH (08:51)
[2019-05-07] MEDS: TOBREX OPH SOLN RIGHT EYE SCH ×2 (08:56→20:26)
[2019-05-07] MEDS ORDERED: LIORESAL PO SCH (09:00)
--- NOTE | 2019-05-07 12:33 | CONSULTATION ---
DATE OF CONSULTATION: 05/07/2019 HISTORY: Mr. Tijerina was admitted a week ago with history of falling. There is long-standing history of ethanol abuse. He was treated for impending DTs. There has been some fluctuation in level of alertness. He has been sleepy at times, confused at times, and agitated at times. I do not have history regarding his baseline mental and cognitive status. He told me today that he has never had a stroke, seizure, DTs, or other neurologic problem. He reports no history of significant head injury. He denies headache. He has had lorazepam several doses most days. He has had a few doses of chlordiazepoxide. He had first dose of baclofen today. There is a reported past history of COPD, hypertension, and cigarette smoking. When he fell recently, he sustained right patellar fracture which has been managed. By report, he was not taking any medications recently at home. Workup here includes noncontrast CT of the head showing nothing remarkable. Laboratory shows anemia, minimal hyponatremia, and normal ammonia. Echocardiogram showed no source of embolus. Urine drug screen was all negative on admission. Admission ethanol level was 75 mg/dL. He has been mostly afebrile, but had temperature recorded 102.1 on 05/04/2019 and 101.3 on 05/06/2019. Systolic blood pressures have ranged from 90s to 190s. PHYSICAL EXAMINATION: On exam, Mr. Tijerina was initially asleep, easily waked, continued alert and attentive during my time at the bedside. He answered simple questions appropriately. Speech is dysarthric and difficult to understand at times. There was not clear language deficit on bedside testing. Remote memory is fair. Recent memory is poor. I did not test his cognitive function more thoroughly. He was oriented to "[place]" and quickly agreed when I told him he is on the [facility]. He did not name the president spontaneously, but did name him with a single hint. He did not answer questions regarding recent news events. Head is unremarkable. Neck is supple without meningismus. He has full visual canales tested grossly by confrontational finger counting. He has good lateral eye movement. Pupils react slightly to light. Facial motility is symmetric. Tongue is midline. He can hear. Strength is normal in the arms and legs. He did rapid alternating movements well with the hands. I did not see classifiable tremor or other abnormal movement. Plantar response is silent bilaterally. Reflexes are absent at the ankles, and 1+ symmetrically at the wrists. His attention may have been incomplete with sensory testing, but I believe that he does have a stocking pattern of sensory loss. IMPRESSION: 1. Global encephalopathy. I do not see evidence of increased intracranial pressure or central nervous system infection. If he becomes febrile again, we might need to reconsider that. Negative imaging is reassuring. I do not think we need anything further right now. 2. Reported fluctuating levels of alertness and confusion. I will order EEG to make sure there is no evidence of seizure. 3. Possibility that he has a baseline cognitive impairment syndrome, likely due to ethanol, which predisposes him to more protracted course with any toxic or metabolic encephalopathy. 4. 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 I do not think this needs urgent attention. Thanks for asking Neurology to see Mr. Tijerina. cc: MD LASHAWN Alcala III
[2019-05-07] MEDS: LIORESAL PO SCH ×2 (15:45→20:26)
[2019-05-07] MEDS: APRESOLINE IV PRN (16:54)
[2019-05-08] MEDS: LOPRESSOR IV SCH ×4 (02:07→21:00)
[2019-05-08] MEDS: CLINIMIX E 4.25%-5% SOLUTION 1,000 ML IV SCH ×3 (03:01→23:21)
[2019-05-08] MEDS: VASOTEC IV SCH ×2 (04:16→16:24)
[2019-05-08] MEDS: PRILOSEC PO SCH ×2 (05:15→06:00)
[2019-05-08] MEDS: ATIVAN IV PRN ×2 (05:38→16:24)
[2019-05-08] MEDS: LIORESAL PO SCH ×3 (08:50→20:37)
[2019-05-08] MEDS: PRINIVIL PO SCH (08:51)
[2019-05-08] MEDS: VITAMIN B-1 PO SCH (08:51)
[2019-05-08] MEDS: TOBREX OPH SOLN RIGHT EYE SCH ×2 (08:51→20:38)
[2019-05-08] MEDS: FOLIC ACID PO SCH (08:51)
[2019-05-08] MEDS: NICODERM PATCH TD SCH (08:55)
[2019-05-08 09:09] LABS: AGAP 12; BUN 14 mg/dL (8-22); CALCIUM 9.3 mg/dL (8.8-10.2); CHLORIDE 95 mmol/L (98-107); COSMO 259; CREATININE 0.5 mg/dL (0.7-1.2); ESTIMATED GFR > 60; GLUCOSE 128 mg/dL (70-104); POTASSIUM 4.2 mmol/L (3.5-5.1); SODIUM 128 mmol/L (136-145); TCO2 21 mmol/L (25-35)
[2019-05-08 09:15] LABS: BASO# 0.03 X1000 (0.0-0.2); BASO% 0.3 % (0.0-0.8); EOS# 0.04 X1000 (0.0-0.7); EOS% 0.4 % (0.0-10.0); HEMATOCRIT 32.2 % (42.0-52.0); HEMOGLOBIN 10.6 g/dL (14.0-18.0); IMM GRAN# 0.05 X1000 (0.0-0.04); IMM GRAN% 0.5 % (0.0-0.5); LYMPH# 1.03 X1000 (1.2-3.4); LYMPH% 10.9 % (20.5-51.1); MCH 29.7 PG (27-31); MCHC 32.9 g/dL (33-37); MCV 90.2 FL (81-99); MONO# 1.78 X1000 (0.11-0.59); MONO% 18.8 % (1.7-9.3); MPV 9.6 FL (7.4-10.4); NEUT# 6.53 X1000 (1.4-6.5); NEUT% 69.1 % (42.2-75.2); PLT 393 X1000 (130-400); RBC 3.57 XMIL (4.7-6.1); RDW 13.2 % (11.5-14.5); WBC 9.46 X1000 (4.8-10.8)
--- NOTE | 2019-05-08 09:58 | PROGRESS NOTE ---
DATE: 05/08/2019 SUBJECTIVE: The patient continues to be confused. Even though he was not agitated or combative last night, he continues to be confused. OBJECTIVE: Vital signs: Temperature is 99.3, heart rate 111, respiratory rate 17, blood pressure 132/67, O2 saturation is 100% on room air. General: This is a chronically ill-looking 63-year- old male lying in bed in no acute distress. The patient is on 4-point restraints. Cardiovascular: S1 and S2 heard. Tachycardic. No murmurs, gallops or rubs noted. Respiratory: Decreased breath sounds globally. I do not hear any crackles or rhonchi. This patient is not using any accessory muscles or having work of breathing. Abdomen: Soft. Nontender to palpation. Bowel sounds present. No organomegaly. Extremities: No edema. Peripheral pulses present in both legs. Neurologic: The patient is in 4-point restraints. Answers basic questions but continues to be confused at times. He knows that he is in the hospital, and he knows his name, but he keeps saying that his is next to him. ASSESSMENT AND PLAN: 1. Alcohol withdrawal. The patient continues to be confused. Because this patient may have been oversedated, we have started baclofen for this condition. He is less sedated but continues to be confused. We have consulted Dr. Garrido from Neurology for this persistent encephalopathy, and he thinks he may have chronic cognitive impairment secondary to chronic alcohol abuse. Also in order to rule out seizures, we will do an EEG and will see what it shows. 2. Patella fracture. He will continue wearing a knee brace. 3. Hypertension. Blood pressure is still elevated because he is agitated but basically better than what it was. Continue with Vasotec and metoprolol IV. 4. Nicotine dependence. We will continue with nicotine patch. 5. DVT prophylaxis with TEDs. 6. Disposition. At this point, we will continue to monitor this patient in the CVC Unit. cc: Kvng Putnam MD
--- NOTE | 2019-05-08 11:43 | EEG REPORT ---
DATE: 05/07/2019 COMMENT: This is a digitally recorded EEG on a 63-year-old patient with fluctuating mental state, question of seizure. FINDINGS: During waking, beta rhythm is prominent centrally and sometimes more broadly across the hemispheres. No sustained posterior dominant rhythm was identified. There is polymorphic and rhythmic theta symmetrically across the frontal and central background. There is occasional slowing into the delta range frontally symmetrically. Photic stimulation did not significantly alter the record. Hyperventilation was not done. Stage 2 sleep was recorded with symmetric features. No definite epileptiform discharge was identified. INTERPRETATION: Abnormal EEG because of generalized slowing. CORRELATION: This is indicative of a diffuse encephalopathy and is nonspecific. Beta rhythm is a typical benzodiazepine effect. The absence of epileptiform discharges on a single EEG does not exclude a clinical diagnosis of seizures. cc: Eden Garrido III, MD
--- NOTE | 2019-05-08 14:03 | PROGRESS NOTE ---
DATE: 05/08/2019 Mr. Tijerina has been afebrile. He is more alert and more attentive today. Speech is slightly less dysarthric. I do not find a focal deficit on brief bedside testing. He has continued to have some restlessness requiring sedatives. Features are consistent with alcohol withdrawal. I suspect he has a baseline cognitive impairment syndrome. EEG showed generalized slowing and prominent beta rhythm typical of benzodiazepine on board. There was no evidence of seizure or focal encephalopathy. I do not have any urgent suggestion. I hope he will continue to improve with management for alcohol withdrawal. When he is at baseline, depending on cognitive status, we might consider a cholinesterase inhibitor trial. Thanks for asking Neurology to see Mr. Tijerina. cc: Eden Garrido III, MD
[2019-05-09] MEDS: LOPRESSOR IV SCH ×4 (02:11→20:18)
[2019-05-09] MEDS: VASOTEC IV SCH ×2 (04:11→17:04)
[2019-05-09] MEDS: PRILOSEC PO SCH (06:10)
[2019-05-09] MEDS: FOLIC ACID PO SCH (08:34)
[2019-05-09] MEDS: VITAMIN B-1 PO SCH (08:34)
[2019-05-09] MEDS: NICODERM PATCH TD SCH (08:34)
[2019-05-09] MEDS: PRINIVIL PO SCH (08:34)
[2019-05-09] MEDS: LIORESAL PO SCH ×3 (08:34→20:18)
[2019-05-09] MEDS: TOBREX OPH SOLN RIGHT EYE SCH ×2 (08:35→20:18)
[2019-05-09] MEDS: CLINIMIX E 4.25%-5% SOLUTION 1,000 ML IV SCH ×2 (09:26→18:01)
--- NOTE | 2019-05-09 09:41 | PROGRESS NOTE ---
DATE: 05/09/2019 SUBJECTIVE: Patient is a little bit more awake today. Oriented to person. No agitated or combative recently. OBJECTIVE: Vital Signs: Temperature 98.1 degrees, heart rate 92, respiratory rate 18, blood pressure 134/71, O2 saturation 99% on room air. General: This is a chronically ill-looking 63- year-old male, lying in bed, in no acute distress. He continues to be on 4 point restraints. Cardiovascular: S1, S2 heard. A little tachycardic, but no murmurs, gallops, or rubs noted. Respiratory: Decreased breath sounds globally, but no rhonchi or crackles noted. Patient is not using any accessory muscles or having work of breathing. Abdomen: Soft. Nontender to palpation. Bowel sounds present. No organomegaly. Extremities: No clubbing, cyanosis, or edema. Peripheral pulses present in both legs. Neurological: Patient is on 4 point restraints. He is definitely more oriented to me, knows his name, knows he is in the hospital. Moves 4 extremities spontaneously. His speech is more coherent today. LABORATORY DATA: No labs from today. ASSESSMENT AND PLAN: 1. Alcohol withdrawal. I think this condition is getting slowly better. Currently, he is receiving baclofen for this condition. We have consulted Dr. Garrido for this metabolic encephalopathy and EEG has been ordered and shows just diffuse encephalopathy, but no signs of seizures. I think at this point, we will continue with the same management. We have ordered physical therapy. Will see how this patient does. 2. Patellar fracture. Will continue awaiting a knee brace. 3. Hypertension. Blood pressure is better. Apparently he has been less agitated. At this point, just to make sure that we are controlling this condition well, we will continue with Vasotec and metoprolol IV on a scheduled basis. 4. Nicotine dependence. Will continue with nicotine patch. 5. Deep venous thrombosis prophylaxis with TEDS. 6. Disposition. At this point, we will continue to monitor this patient closely in the PVC unit. cc: Kvng Putnam MD
[2019-05-09] MEDS: ATIVAN IV PRN ×3 (11:29→23:01)
[2019-05-10] MEDS: ATIVAN IV PRN ×4 (01:04→22:49)
[2019-05-10] MEDS ORDERED: PHENOBARBITAL IV ONE ×2 (01:10→02:15)
[2019-05-10] MEDS: LOPRESSOR IV SCH ×4 (02:14→20:03)
[2019-05-10] MEDS: CLINIMIX E 4.25%-5% SOLUTION 1,000 ML IV SCH (04:01)
[2019-05-10] MEDS: VASOTEC IV SCH ×2 (04:07→16:46)
[2019-05-10] MEDS: PRILOSEC PO SCH ×2 (08:33→08:42)
[2019-05-10] MEDS: PRINIVIL PO SCH ×2 (08:33→08:43)
[2019-05-10] MEDS: LIORESAL PO SCH ×4 (08:33→20:02)
[2019-05-10] MEDS: VITAMIN B-1 PO SCH ×2 (08:33→08:43)
[2019-05-10] MEDS: FOLIC ACID PO SCH ×2 (08:33→08:43)
[2019-05-10] MEDS: TOBREX OPH SOLN RIGHT EYE SCH ×2 (08:34→20:03)
[2019-05-10] MEDS: NICODERM PATCH TD SCH (08:35)
[2019-05-10 09:30] LABS: SODIUM 121 mmol/L (136-145)
[2019-05-10] MEDS ORDERED: SAMSCA PO ONE (09:36)
[2019-05-10 09:40] LABS: AGAP 9; BUN 21 mg/dL (8-22); CALCIUM 9.1 mg/dL (8.8-10.2); CHLORIDE 88 mmol/L (98-107); COSMO 245; CREATININE 0.6 mg/dL (0.7-1.2); ESTIMATED GFR > 60; GLUCOSE 123 mg/dL (70-104); MAGNESIUM 1.9 mg/dL (1.5-2.7); PHOSPHORUS 4.4 mg/dL (2.7-4.5); POTASSIUM 4.2 mmol/L (3.5-5.1); TCO2 22 mmol/L (25-35)
--- NOTE | 2019-05-10 10:00 | PROGRESS NOTE ---
DATE: 05/10/2019 SUBJECTIVE: As per nursing staff, the patient has been restless and trying to get out of the bed and walk home around 5 a.m. this morning. He got one dose of phenobarbital that did not help, so he received another dose of phenobarbital after approximately an hour or so, and finally, he needed to receive Ativan in order to keep him calmed down. Upon my examination today, he is very sleepy. OBJECTIVE: Vial Signs: Temperature 98.8 degrees, heart rate 104, respiratory rate 18, blood pressure 120/60, O2 saturation 98% on room air. General: This is a chronically ill-looking, 63- year-old, male, lying in bed in no acute distress. He is in 4- point restraints. Cardiovascular: S1, S2 heard, tachycardic, but no murmurs, gallops, or rubs noted. Respiratory: Decreased breath sounds globally, but no rhonchi or crackles noted. Abdomen: Soft. Bowel sounds present. No organomegaly. Extremities: No clubbing, cyanosis, or edema. Peripheral pulses present in both legs. Neurologic: The patient is obtunded because of sedating medications. The patient is sleepy. LABORATORY DATA: Sodium is apparently 121. ASSESSMENT AND PLAN: 1. Alcohol withdrawal/metabolic encephalopathy. That is the reason why this patient is confused. At this point, the patient is not receiving any baclofen because he is very sleepy. Partial results of BMP shows hyponatremia. At this point, for hydration, he is receiving Clinimix because he is not able to eat by himself. Dr. Garrido from Neurology has been following this patient. I think that it is diffuse encephalopathy. He may have some degree of chronic cognitive impairment secondary to chronic alcohol abuse. At this point, will continue to monitor this patient closely in the [facility]. 2. Patellar fracture. Will continue wearing knee brace. 3. Hypertension. Blood pressure is sometimes high because he got agitated. Currently, he is on Vasotec and metoprolol intravenously. Will continue with the same management. 4. Nicotine dependence. Will continue with nicotine patch. 5. Deep venous thrombosis prophylaxis, on TEDs. 6. Disposition. Will continue to monitor this patient closely. Will keep an eye on sodium. cc: MD LASHAWN Crews
[2019-05-10] MEDS: NS 1,000 ML IV SCH (12:34)
[2019-05-11] MEDS: ATIVAN IV PRN ×2 (00:55→03:59)
[2019-05-11] MEDS: NS 1,000 ML IV SCH (00:56)
[2019-05-11] MEDS: LOPRESSOR IV SCH ×4 (02:01→20:12)
[2019-05-11] MEDS: VASOTEC IV SCH ×2 (04:03→17:23)
[2019-05-11] MEDS: PRILOSEC PO SCH (06:05)
[2019-05-11] MEDS ORDERED: SAMSCA PO ONE (07:33)
[2019-05-11 08:21] LABS: AGAP 14; BUN 17 mg/dL (8-22); CALCIUM 9.4 mg/dL (8.8-10.2); CHLORIDE 95 mmol/L (98-107); COSMO 258; CREATININE 0.6 mg/dL (0.7-1.2); ESTIMATED GFR > 60; GLUCOSE 89 mg/dL (70-104); MAGNESIUM 1.9 mg/dL (1.5-2.7); PHOSPHORUS 4.2 mg/dL (2.7-4.5); POTASSIUM 4.9 mmol/L (3.5-5.1); SODIUM 128 mmol/L (136-145); TCO2 19 mmol/L (25-35)
[2019-05-11] MEDS ORDERED: NS 1,000 ML IV SCH (09:06)
--- NOTE | 2019-05-11 09:57 | Diag Imaging Result Doc PS360 ---
EXAM: CHEST-PORTABLE 05/11/2019 HISTORY: NGT placement TECHNIQUE: AP portable chest and abdomen for NG tube placement at 0945 COMMENT: There is an NG tube in the distal stomach with its tip possibly in the duodenum. IMPRESSION: NG tube in the stomach or duodenum. Electronically signed by Moreno Nunn 05/11/2019 9:55 AM
[2019-05-11] MEDS: PRINIVIL PO SCH (10:14)
[2019-05-11] MEDS: LIORESAL PO SCH ×3 (10:14→20:18)
[2019-05-11] MEDS: FOLIC ACID PO SCH (10:14)
[2019-05-11] MEDS: VITAMIN B-1 PO SCH (10:15)
[2019-05-11] MEDS: NICODERM PATCH TD SCH (10:15)
[2019-05-11] MEDS: TOBREX OPH SOLN RIGHT EYE SCH ×2 (10:15→20:12)
[2019-05-11 10:29] LABS: URINE SOURCE CATH
[2019-05-11 10:31] LABS: BILIRUBIN URINE NEGATIVE (NEGATIVE); BLOOD URINE LARGE (NEGATIVE); COLOR ORANGE; GLUCOSE URINE NEGATIVE (NEGATIVE); KETONE URINE NEGATIVE (NEGATIVE); LEUKOCYTES URINE LARGE (NEGATIVE); NITRITE URINE NEGATIVE (NEGATIVE); PROTEIN URINE 200 mg/dL (NEGATIVE); SP GRAVITY URINE 1.021; TURBIDITY URINE HAZY (CLEAR); UROBILINOGEN URINE 3 mg/dL (NORMAL)
[2019-05-11 10:32] LABS: UR EPITHELIAL CELLS <10 /HPF (<10); URINE BACTERIA 2+ /HPF; URINE RBC TNTC /HPF (<10); URINE WBC TNTC /HPF (<10)
[2019-05-11] MEDS ORDERED: BENTYL NG PRN (10:46)
[2019-05-11] MEDS ORDERED: ROBAXIN NG PRN (10:46)
[2019-05-11] MEDS ORDERED: ATARAX NG PRN (10:46)
--- NOTE | 2019-05-11 11:08 | PROGRESS NOTE ---
DATE: 05/11/2019 SUBJECTIVE: Patient continues to be lethargic. Since yesterday morning and he received phenobarbital, he is more sleepy. He is not eating almost anything. He is not taking his medications by mouth. Upon my examination, he continues to the very lethargic. OBJECTIVE: Vital Signs: Temperature 97.7 heart rate 95, respiratory rate 30, blood pressure 137/67, O2 saturation 99% on room air. General Examination: This is a chronically ill-appearing, 63-year-old male, lying in bed, in no acute distress. HEENT: Head is normocephalic, atraumatic. Cardiovascular: S1 and S2 heard. Tachycardic. No murmurs, gallops, or rubs. Respiratory: Decreased breath sounds globally but no rhonchi or crackles noted. Abdomen: Soft. Nontender to palpation. Bowel sounds present. No organomegaly. Extremities: No clubbing, cyanosis, or edema. Peripheral pulses present in both legs. Neurological: Patient continues to be obtunded. Does not answer any questions. Does not follow any commands. LABORATORY DATA: Sodium is today 128 with normal creatinine. ASSESSMENT AND PLAN: 1. Alcohol withdrawal. Metabolic encephalopathy. The patient continues to be confused. So far we have done an EEG to rule out seizures but it did show diffuse encephalopathy. Because of this persistent condition, I prefer to go ahead and check a CT of the head without contrast. We will go from there. 2. Nutrition status. Patient isn't eating properly. He has been on Clinimix that will cause hyponatremia. At this point, I prefer to go ahead and have an NG placed not only for nutrition but also for administering medications. We will consult dietitian for NG tube feedings. 3. Patellar fracture. Patient is wearing a knee brace. No surgical approach needed. 4. Hypertension. Because patient appears to be agitated at time, patient is receiving metoprolol and Vasotec IV on scheduled basis, so at this point, we will continue with the same management. 5. Nicotine dependence. We will continue to provide a nicotine patch. 6. Deep venous thrombosis prophylaxis. On TEDs. 7. Disposition. I will continue to monitor this patient closely here in the [facility]. cc: Kvng Putnam MD [facility]
--- NOTE | 2019-05-11 11:09 | Diag Imaging Result Doc PS360 ---
EXAM: CT HEAD W/O CONTRAST 05/11/2019 HISTORY: persistent encephalopathy TECHNIQUE: This exam was performed using automated exposure control, adjustment of mA or kV according to patient size, and/or use of iterative reconstruction technique. COMMENT: There are calcifications in the globus pallidus bilaterally. There is mild generalized cerebral atrophy. There is no evidence of mass effect, bleed, or abnormal extra-axial fluid collection. Compared to 04/30/2019 there has been no apparent change. IMPRESSION: Stable CT of the head. Electronically signed by Moreno Nunn 05/11/2019 11:07 AM
[2019-05-11] MEDS: SODIUM CHLORIDE 0.9% INJ SCH (12:17)
[2019-05-11] MEDS: PROTONIX IV SCH (12:17)
[2019-05-11] MEDS: LIBRIUM PO SCH ×2 (12:17→20:11)
[2019-05-11] MEDS: MAXIPIME 1 GM in NS 50 ML IV SCH (14:45)
--- NOTE | 2019-05-11 18:16 | Diag Imaging Result Doc PS360 ---
EXAM: CHEST-PORTABLE HISTORY: NGT placement TECHNIQUE: Chest single view COMPARISON: 9:45 AM FINDINGS: Nasogastric tube overlies the esophagus and stomach and appears to be in good position. Electronically signed by Darien Dockery 05/11/2019 6:14 PM
[2019-05-12] MEDS: LOPRESSOR IV SCH ×4 (02:27→20:37)
[2019-05-12] MEDS: MAXIPIME 1 GM in NS 50 ML IV SCH ×2 (02:27→13:13)
[2019-05-12] MEDS: LIBRIUM PO SCH ×4 (02:27→21:27)
[2019-05-12] MEDS: VASOTEC IV SCH (05:31)
[2019-05-12 07:53] LABS: BASO# 0.04 X1000 (0.0-0.2); BASO% 0.3 % (0.0-0.8); EOS# 0.02 X1000 (0.0-0.7); EOS% 0.1 % (0.0-10.0); HEMATOCRIT 29.9 % (42.0-52.0); HEMOGLOBIN 9.7 g/dL (14.0-18.0); IMM GRAN# 0.09 X1000 (0.0-0.04); IMM GRAN% 0.6 % (0.0-0.5); LYMPH# 0.99 X1000 (1.2-3.4); LYMPH% 6.8 % (20.5-51.1); MCH 29.6 PG (27-31); MCHC 32.4 g/dL (33-37); MCV 91.2 FL (81-99); MONO# 2.01 X1000 (0.11-0.59); MONO% 13.8 % (1.7-9.3); MPV 9.3 FL (7.4-10.4); NEUT# 11.39 X1000 (1.4-6.5); NEUT% 78.4 % (42.2-75.2); PLT 708 X1000 (130-400); RBC 3.28 XMIL (4.7-6.1); RDW 13.7 % (11.5-14.5); WBC 14.54 X1000 (4.8-10.8)
[2019-05-12 08:11] LABS: AGAP 9; BUN 20 mg/dL (8-22); CALCIUM 9.6 mg/dL (8.8-10.2); CHLORIDE 99 mmol/L (98-107); COSMO 270; CREATININE 0.7 mg/dL (0.7-1.2); ESTIMATED GFR > 60; GLUCOSE 143 mg/dL (70-104); PHOSPHORUS 4.4 mg/dL (2.7-4.5); POTASSIUM 4.5 mmol/L (3.5-5.1); SODIUM 132 mmol/L (136-145); TCO2 24 mmol/L (25-35)
[2019-05-12] MEDS: NICODERM PATCH TD SCH (08:50)
[2019-05-12] MEDS: LIORESAL PO SCH ×3 (08:50→20:38)
[2019-05-12] MEDS: VITAMIN B-1 NG SCH (08:50)
[2019-05-12] MEDS: PRINIVIL NG SCH (08:51)
[2019-05-12] MEDS: FOLIC ACID NG SCH (08:51)
[2019-05-12] MEDS: TOBREX OPH SOLN RIGHT EYE SCH ×2 (08:52→20:50)
[2019-05-12] MEDS ORDERED: SAMSCA PO ONE (09:06)
--- NOTE | 2019-05-12 09:50 | PROGRESS NOTE ---
DATE: 05/12/2019 SUBJECTIVE: Patient continues to be confused, but not combative. He is receiving Librium drug in his NG tube. He did not require any Ativan p.r.n. during the last 12 hours. Upon my examination today he is still confused, but not agitated or combative. OBJECTIVE: Vital Signs: Temperature 98.2 degrees, heart rate 102, respiratory rate 31, blood pressure 108/64, O2 saturation 100% on 3 L nasal cannula. General: This is a chronically ill- appearing 63-year-old male lying in bed, in no acute distress. Cardiovascular: S1, S2 heard. Tachycardic, but no murmurs, gallops, or rubs noted. Respiratory: Decreased breath sounds globally. No rhonchi or crackles noted. Abdomen: Soft, nontender to palpation. Bowel sounds present. No organomegaly. Mild suprapubic tenderness noted. Extremities: No clubbing, cyanosis, or edema. Peripheral pulses present in both legs. Neurologic: Obtunded, does not answer questions properly. Does follow basic commands. LABORATORY DATA: Sodium 132. Urinalysis shows an infection. ASSESSMENT AND PLAN: 1. Alcohol withdrawal/metabolic encephalopathy. Patient continues to be confused, but definitely less agitated and combative. At this point, we are going to continue with Librium through NG- tube. Will continue to monitor. 2. Urinary tract infection. Patient has been started on Cefepime. Urine culture is still pending. Will continue to monitor. 3. Nutritional status. Patient is on NG-tube feedings. We will continue with the same management. 4. Patellar fracture. Patient wearing a knee brace. No surgical approach needed. 5. Hypertension. The patient is on metoprolol IV and also enalapril by NG-tube. 6. Nicotine dependence. Will continue with nicotine patch on a daily basis. 7. Disposition. Will continue to monitor this patient in the [facility]. cc: Kvng Putnam MD [facility]
--- NOTE | 2019-05-12 09:51 | Diag Imaging Result Doc PS360 ---
EXAM: CHEST/ABD TUBE PLACEMENT 05/12/2019 HISTORY: difficulty flushing TECHNIQUE: One view COMMENT: There is an NG tube which is looped in the stomach with its tip in the gastric fundus. It is possible that this loop includes a kink in the tube. IMPRESSION: NG tube as described. This has not changed significantly since 05/11/2019. Electronically signed by Moreno Nunn 05/12/2019 9:48 AM
--- NOTE | 2019-05-12 10:22 | Diag Imaging Result Doc PS360 ---
EXAM: CHEST/ABD TUBE PLACEMENT 05/12/2019 HISTORY: readjusted ng tube TECHNIQUE: AP chest and abdomen for NG tube placement at 1011 COMMENT: The NG tube has been partially withdrawn. It is still looped in the stomach, but the point of inflection appears to be at the level of the proximal port. IMPRESSION: NG tube in the stomach as described. Electronically signed by Moreno Nunn 05/12/2019 10:19 AM
--- NOTE | 2019-05-12 11:05 | Diag Imaging Result Doc PS360 ---
EXAM: CHEST/ABD TUBE PLACEMENT 05/12/2019 HISTORY: readjusted ng tube TECHNIQUE: AP portable upright at 1052 COMMENT: The NG tube has been further withdrawn and the tip is in the fundus of the stomach. There is no longer a kink in the tube. IMPRESSION: NG tube in the stomach as described. Electronically signed by Moreno Nunn 05/12/2019 11:02 AM
[2019-05-12] MEDS: PROTONIX IV SCH (11:30)
[2019-05-12] MEDS: SODIUM CHLORIDE 0.9% INJ SCH (11:30)
[2019-05-12] MEDS: ATIVAN IV PRN (16:04)
[2019-05-13] MEDS: LIBRIUM PO SCH ×4 (01:55→20:10)
[2019-05-13] MEDS: MAXIPIME 1 GM in NS 50 ML IV SCH (02:22)
[2019-05-13] MEDS: LOPRESSOR IV SCH ×4 (03:45→20:10)
[2019-05-13 05:23] LABS: BASO# 0.07 X1000 (0.0-0.2); BASO% 0.5 % (0.0-0.8); EOS# 0.08 X1000 (0.0-0.7); EOS% 0.5 % (0.0-10.0); HEMATOCRIT 28.5 % (42.0-52.0); HEMOGLOBIN 9.2 g/dL (14.0-18.0); IMM GRAN% 0.7 % (0.0-0.5); LYMPH# 1.21 X1000 (1.2-3.4); LYMPH% 8.2 % (20.5-51.1); MCH 29.9 PG (27-31); MCHC 32.3 g/dL (33-37); MCV 92.5 FL (81-99); MONO# 2.07 X1000 (0.11-0.59); NEUT# 11.22 X1000 (1.4-6.5); NEUT% 76.1 % (42.2-75.2); PLT 683 X1000 (130-400); RBC 3.08 XMIL (4.7-6.1); RDW 13.9 % (11.5-14.5); WBC 14.75 X1000 (4.8-10.8)
[2019-05-13 05:56] LABS: AGAP 9; BUN 20 mg/dL (8-22); CALCIUM 9.5 mg/dL (8.8-10.2); CHLORIDE 102 mmol/L (98-107); COSMO 276; CREATININE 0.6 mg/dL (0.7-1.2); ESTIMATED GFR > 60; GLUCOSE 126 mg/dL (70-104); MAGNESIUM 2.1 mg/dL (1.5-2.7); PHOSPHORUS 4.1 mg/dL (2.7-4.5); POTASSIUM 4.5 mmol/L (3.5-5.1); SODIUM 136 mmol/L (136-145); TCO2 25 mmol/L (25-35)
[2019-05-13] MEDS: VITAMIN B-1 NG SCH (08:53)
[2019-05-13] MEDS: LIORESAL PO SCH ×3 (08:53→20:10)
[2019-05-13] MEDS: PRINIVIL NG SCH (08:53)
[2019-05-13] MEDS: TOBREX OPH SOLN RIGHT EYE SCH ×2 (08:53→20:33)
[2019-05-13] MEDS: NICODERM PATCH TD SCH (08:53)
[2019-05-13] MEDS: FOLIC ACID NG SCH (08:53)
[2019-05-13] MEDS: ROCEPHIN 2 GM in NS 50 ML IV SCH (09:13)
[2019-05-13] MEDS ORDERED: LASIX IV ONE (10:54)
--- NOTE | 2019-05-13 11:14 | PROGRESS NOTE ---
DATE: 05/13/2019 SUBJECTIVE: The patient continues to be confused, but not combative during the last 24 hours. The patient is receiving Librium through his NG tube. He looks a little bit tachypneic today. OBJECTIVE: Vital Signs: Temperature 98.3 degrees, heart rate 102, respiratory rate 22, blood pressure 128/70, O2 saturation 94% on 4 L nasal cannula. General: This is a chronically ill- appearing, 63-year-old, male, lying in bed in no distress. Cardiovascular: S1, S2 heard. No murmurs, gallops, or rubs. Regular rate and rhythm. Respiratory: Decreased breath sounds globally with no rhonchi or crackles noted. Abdomen: Soft, nontender to palpation. Bowel sounds present. No organomegaly. Mild superficial tenderness noted. Extremities: No clubbing, cyanosis, or edema. Peripheral pulses present in both legs. Neurologic: Continues to be obtunded. Does not answer any questions properly. He is awake and follows basic commands. Moves all 4 extremities spontaneously. LABORATORY DATA: Reviewed. ASSESSMENT AND PLAN: 1. Urinary tract infection. The patient has been started on cefepime, but because the urine culture showed Enterobacter cloacae, will stop cefepime and will start ceftriaxone 2 grams intravenously every 24 hours. Will continue with the same management. 2. Alcohol withdrawal, metabolic encephalopathy. The patient continues to be confused, less agitated and combative, but is still confused. At this point, will continue with Librium through his nasogastric tube. Will continue to monitor. 3. Nutritional status. Will continue with nasogastric tube feedings. 4. Patellar fracture. Will continue using knee brace, and no surgical approach needed. 5. Hypertension. The patient is on intravenous metoprolol and also lisinopril by mouth. Blood pressure is under control. Will continue with the same management. 6. Nicotine dependence. Will continue with nicotine patch on a daily basis. 7. Disposition. Will continue to monitor this patient closely. cc: Kvng Putnam MD
[2019-05-13] MEDS: PROTONIX IV SCH (11:37)
[2019-05-13] MEDS: SODIUM CHLORIDE 0.9% INJ SCH (11:37)
[2019-05-13] MEDS: ATIVAN IV PRN ×2 (12:09→21:49)
[2019-05-13] MEDS: MORPHINE IV PRN (12:58)
[2019-05-13] MEDS: TYLENOL NG PRN (20:34)
[2019-05-13] MEDS ORDERED: ATARAX NG PRN (22:27)
[2019-05-14] MEDS: LIBRIUM PO SCH ×4 (02:07→20:38)
[2019-05-14] MEDS: LOPRESSOR IV SCH ×4 (02:07→20:37)
[2019-05-14 07:04] LABS: BASO# 0.04 X1000 (0.0-0.2); BASO% 0.3 % (0.0-0.8); EOS# 0.13 X1000 (0.0-0.7); HEMATOCRIT 31.8 % (42.0-52.0); HEMOGLOBIN 10.1 g/dL (14.0-18.0); IMM GRAN% 0.8 % (0.0-0.5); LYMPH# 1.08 X1000 (1.2-3.4); LYMPH% 8.6 % (20.5-51.1); MCH 29.3 PG (27-31); MCHC 31.8 g/dL (33-37); MCV 92.2 FL (81-99); MONO# 1.39 X1000 (0.11-0.59); MPV 9.5 FL (7.4-10.4); NEUT# 9.85 X1000 (1.4-6.5); NEUT% 78.3 % (42.2-75.2); PLT 688 X1000 (130-400); RBC 3.45 XMIL (4.7-6.1); WBC 12.59 X1000 (4.8-10.8)
[2019-05-14 07:22] LABS: ALBUMIN 2.9 g/dL (3.5-5.0)
[2019-05-14 07:25] LABS: AGAP 13; BUN 23 mg/dL (8-22); CALCIUM 8.9 mg/dL (8.8-10.2); CHLORIDE 100 mmol/L (98-107); COSMO 288; CREATININE 0.6 mg/dL (0.7-1.2); ESTIMATED GFR > 60; GLUCOSE 153 mg/dL (70-104); POTASSIUM 4.5 mmol/L (3.5-5.1); SODIUM 141 mmol/L (136-145); TCO2 28 mmol/L (25-35)
[2019-05-14] MEDS: ROCEPHIN 2 GM in NS 50 ML IV SCH (08:12)
[2019-05-14] MEDS: NICODERM PATCH TD SCH (08:13)
[2019-05-14] MEDS: TOBREX OPH SOLN RIGHT EYE SCH ×2 (08:13→20:48)
[2019-05-14] MEDS: FOLIC ACID NG SCH (08:13)
[2019-05-14] MEDS: VITAMIN B-1 NG SCH (08:13)
[2019-05-14] MEDS: LIORESAL PO SCH ×3 (08:13→20:37)
[2019-05-14] MEDS: PRINIVIL NG SCH (08:13)
--- NOTE | 2019-05-14 09:08 | PROGRESS NOTE ---
DATE: 05/14/2019 SUBJECTIVE: The patient continues to be confused, although not combative. Continues to receive Librium through his NG tube but basically he looks the same. OBJECTIVE: Vital Signs: Temperature 97.4 degrees, heart rate 100, respiratory 20, blood pressure 146/78, O2 saturation 100% 3 L nasal cannula General: This is a chronically ill-appearing 63- year-old -[place] male, lying in bed, in no acute distress. HEENT: Head is normocephalic, atraumatic. NG tube placed with NG tube feeding running. Neck: No JVD noted. No carotid bruits. No lymphadenopathy. Cardiovascular: S1, S2 heard. No murmurs, gallops, or rubs. Regular rate and rhythm. Respiratory: Minimal coarse breath sounds noted in both pulmonary bases. Patient is not using any accessory muscles or having work of breathing. Abdomen: Soft. A little bit distended but nontender to palpation. Bowel sounds present. No organomegaly. Extremities: No clubbing, cyanosis, or edema. Peripheral pulses present in both legs. Neurological: Patient continues to be obtunded, confused but he has not been combative. He does not answer any questions or follow any commands. Moves 4 extremities. LABORATORY DATA: Reviewed. ASSESSMENT/PLAN: 1. Urinary tract infection secondary to Enterobacter cloacae. We will continue with ceftriaxone 2 g IV q.24 hours. White cell count is mildly elevated but patient is not spiking any fever. We will continue to monitor. 2. Alcohol withdrawal/metabolic encephalopathy. Patient continues to be confused. Will continue Librium for alcohol withdrawal. 3. Nutritional status. Patient continues with NG tube feedings. 4. Patellar fracture. Will continue using knee brace but no surgical approach needed. 5. Hypertension we. Will continue with metoprolol and lisinopril by mouth. The patient's blood pressure is much better controlled. We will continue with same management. 6. Nicotine dependence. We will continue with nicotine patch on a daily basis. 7. Disposition: We will continue to monitor this patient closely. We do not know for how long he is going to continue to be encephalopathic. cc: Kvng Putnam MD
[2019-05-14] MEDS: SODIUM CHLORIDE 0.9% INJ SCH (11:18)
[2019-05-14] MEDS: PROTONIX IV SCH (11:18)
--- NOTE | 2019-05-14 11:45 | PROGRESS NOTE ---
DATE: 05/14/2019 OBJECTIVE: Mr. Tijerina looks about the same clinically. He is easily waked, continues alert, pays attention and answers questions. Speech is dysarthric but easily understood. He followed simple commands consistently. He was not oriented. I do not find any focal deficit on brief bedside exam. IMPRESSION: Global encephalopathy. Very little clinical change in the last several days. Not sure but suspect baseline cognitive impairment. No new suggestion from Neurology standpoint today. cc: Eden Garrido III, MD MTDD
[2019-05-15] MEDS: LIBRIUM PO SCH ×4 (02:20→21:35)
[2019-05-15] MEDS: LOPRESSOR IV SCH ×4 (02:20→21:35)
[2019-05-15 06:49] LABS: BASO# 0.04 X1000 (0.0-0.2); BASO% 0.3 % (0.0-0.8); EOS# 0.06 X1000 (0.0-0.7); EOS% 0.4 % (0.0-10.0); HEMATOCRIT 29.8 % (42.0-52.0); HEMOGLOBIN 9.5 g/dL (14.0-18.0); IMM GRAN# 0.11 X1000 (0.0-0.04); IMM GRAN% 0.8 % (0.0-0.5); LYMPH# 1.16 X1000 (1.2-3.4); LYMPH% 8.6 % (20.5-51.1); MCH 29.2 PG (27-31); MCHC 31.9 g/dL (33-37); MCV 91.7 FL (81-99); MONO# 1.18 X1000 (0.11-0.59); MONO% 8.8 % (1.7-9.3); NEUT% 81.1 % (42.2-75.2); PLT 765 X1000 (130-400); RBC 3.25 XMIL (4.7-6.1); RDW 14.2 % (11.5-14.5); WBC 13.45 X1000 (4.8-10.8)
[2019-05-15 06:59] LABS: ALBUMIN 2.8 g/dL (3.5-5.0); MAGNESIUM 2.2 mg/dL (1.5-2.7)
[2019-05-15 07:01] LABS: BANDS 2 % (0-1); EOS 2 % (1-10); LYMPHS 6 % (21-51); MONO 6 % (1-9); SEGS 84 % (42-75)
[2019-05-15 07:05] LABS: AGAP 13; BUN 20 mg/dL (8-22); CALCIUM 9.7 mg/dL (8.8-10.2); CHLORIDE 98 mmol/L (98-107); COSMO 283; CREATININE 0.6 mg/dL (0.7-1.2); ESTIMATED GFR > 60; GLUCOSE 150 mg/dL (70-104); POTASSIUM 4.9 mmol/L (3.5-5.1); SODIUM 139 mmol/L (136-145); TCO2 28 mmol/L (25-35)
[2019-05-15] MEDS: ROCEPHIN 2 GM in NS 50 ML IV SCH (09:05)
[2019-05-15] MEDS: VITAMIN B-1 NG SCH (09:05)
[2019-05-15] MEDS: LIORESAL PO SCH ×3 (09:06→21:35)
[2019-05-15] MEDS: NICODERM PATCH TD SCH (09:06)
[2019-05-15] MEDS: TOBREX OPH SOLN RIGHT EYE SCH ×2 (09:06→21:36)
[2019-05-15] MEDS: PRINIVIL NG SCH (09:06)
[2019-05-15] MEDS: FOLIC ACID NG SCH (09:06)
--- NOTE | 2019-05-15 10:39 | PROGRESS NOTE ---
DATE: 05/15/2019 SUBJECTIVE: Patient unfortunately continues to be confused, not combative. He is not requiring Ativan very often. No acute issues noted as per nursing staff overnight. OBJECTIVE: Vital Signs: Temperature 99.1 degrees, heart rate 103, respiratory rate 35, blood pressure 136/66, O2 saturation 95% on 4 L nasal cannula. General examination: This is a chronically ill appearing, 63-year-old male, lying in bed in no acute distress. Cardiovascular exam: S1, S2. No murmurs, gallops, or rubs. Regular rate and rhythm. HEENT: Head is normocephalic, atraumatic. NG tube placed. We will continue tube feeding running. Neck: No JVD noted. No carotid bruits. No lymphadenopathy. No thyromegaly. Respiratory exam: Minimal coarse breath sounds, a little bit worse in comparing with yesterday. Patient is not using any accessory muscles or having work of breathing. Abdomen: Soft, a little bit distended. Nontender to palpation. Bowel sounds present. No organomegaly. Extremities: No clubbing, cyanosis, or edema. Peripheral pulses present in both legs. Neurological exam: Patient continues to be obtunded and confused. He has not been combative recently. He does not answer any questions or follow commands. LABORATORY DATA: White cell count 13.45, hemoglobin 9.5, hematocrit 29.8, platelets 765. ASSESSMENT AND PLAN: 1. Urinary tract infection secondary to Enterobacter cloacae. The patient is currently on ceftriaxone 2 grams intravenous every 24 hours. White cell count is still elevated, but the patient is not spiking fever. We will continue to monitor. 2. Alcohol withdrawal/metabolic encephalopathy. Unfortunately, patient continues to be confused. That happened at admission. So far, he has had 2 CT scans of the head done. Also, an electroencephalogram to rule out any seizures. Dr. Garrido from Neurology is following this patient. He thinks that this could be some sort of cognitive impairment secondary to chronic alcohol consumption. In any case, we will continue to monitor this patient closely. 3. Nutritional status. We will continue with nasogastric tube feedings. 4. Patellar fracture. Patient using a knee brace. Orthopedics said no surgical approach needed at this time. He will be seen as an outpatient. 5. Hypertension. Currently this patient is taking metoprolol intravenous and lisinopril by mouth. Blood pressure is much better controlled. We will continue with same management. 6. Nicotine dependence. We will continue with nicotine patch on a daily basis. 7. Disposition: At this point, we will continue this patient closely. We do not know for how long he is going to be encephalopathic. We will continue to monitor this patient closely. cc: Kvng Putnam MD
--- NOTE | 2019-05-15 11:08 | PROGRESS NOTE ---
DATE: 05/15/2019 SUBJECTIVE: There is brother at the bedside today. He reports the patient seemed to be independent and not significantly impaired cognitively prior to onset of current illness. He reports there was a stooped posture and unsteady gait and there might have been some falling, but he is not aware of specific falling events. He is not aware of any seizure prior to just before this admission. He reports no history of stroke or serious head injury. He has not received morphine or lorazepam in the last few days. Chlordiazepoxide and baclofen continue scheduled. Lab reports reviewed. WBC is elevated. He has not had significant temperature elevation. OBJECTIVE: Mr. Tijerina appeared to be asleep. He was a little bit more difficult to keep alert today, but there is nothing otherwise different on clinical exam. Neck shows no meningismus. Extraocular movements are full. Speech continues very dysarthric. Limb tone is symmetric. When not vigorously stimulated and engaged with conversation, he seemed quickly back to sleep. IMPRESSION: Persistent global encephalopathy. Features are consistent with alcohol-related etiology. His very slow recovery is worrisome. Some of the current lack of alertness could be due to sedatives on board. I do not have any urgent suggestion right now. I wonder if the brother's report that there was not cognitive impairment at baseline is not accurate, and if there was preexisting poor cognitive function, we would expect protracted course with encephalopathy recovery. cc: MD LASHAWN Alcala III
[2019-05-15] MEDS: PROTONIX IV SCH (13:23)
[2019-05-15] MEDS: SODIUM CHLORIDE 0.9% INJ SCH (13:23)
[2019-05-16] MEDS: LOPRESSOR IV SCH ×4 (02:35→21:13)
[2019-05-16] MEDS: LIBRIUM PO SCH ×2 (02:35→10:12)
[2019-05-16 07:36] LABS: BASO# 0.04 X1000 (0.0-0.2); BASO% 0.3 % (0.0-0.8); EOS# 0.11 X1000 (0.0-0.7); EOS% 0.9 % (0.0-10.0); HEMATOCRIT 30.2 % (42.0-52.0); HEMOGLOBIN 9.6 g/dL (14.0-18.0); IMM GRAN# 0.14 X1000 (0.0-0.04); IMM GRAN% 1.1 % (0.0-0.5); LYMPH# 1.29 X1000 (1.2-3.4); LYMPH% 10.4 % (20.5-51.1); MCH 29.3 PG (27-31); MCHC 31.8 g/dL (33-37); MCV 92.1 FL (81-99); MONO# 1.12 X1000 (0.11-0.59); MONO% 9.1 % (1.7-9.3); MPV 9.1 FL (7.4-10.4); NEUT# 9.66 X1000 (1.4-6.5); NEUT% 78.2 % (42.2-75.2); PLT 779 X1000 (130-400); RBC 3.28 XMIL (4.7-6.1); RDW 14.2 % (11.5-14.5); WBC 12.36 X1000 (4.8-10.8)
[2019-05-16 07:51] LABS: AGAP 7; BUN 17 mg/dL (8-22); CALCIUM 9.8 mg/dL (8.8-10.2); CHLORIDE 96 mmol/L (98-107); COSMO 281; CREATININE 0.6 mg/dL (0.7-1.2); ESTIMATED GFR > 60; GLUCOSE 160 mg/dL (70-104); POTASSIUM 4.7 mmol/L (3.5-5.1); SODIUM 138 mmol/L (136-145); TCO2 35 mmol/L (25-35)
--- NOTE | 2019-05-16 08:23 | Diag Imaging Result Doc PS360 ---
CT THORAX W/CONTRAST - 05/16/2019 INDICATION: sob, COMPARISON: None FINDINGS: There is a nasogastric tube in good position. Lung volumes are low. There is some patchy atelectasis or infiltrate in the right lower lobe that appears nonspecific. The lungs are otherwise clear. No significant COPD. No adenopathy. Heart size is top normal. Upper abdominal images are normal. There are moderate degenerative changes of the spine. No acute or suspicious bony lesion. IMPRESSION: Slight nonspecific atelectasis or infiltrate in the right lower lobe. This exam was performed using automated exposure control, adjustment of mA or kV according to patient size, and/or use of iterative reconstruction technique Electronically signed by Raza Dumont 05/16/2019 8:20 AM
[2019-05-16] MEDS: FOLIC ACID NG SCH (10:12)
[2019-05-16] MEDS: VITAMIN B-1 NG SCH (10:12)
[2019-05-16] MEDS: PRINIVIL NG SCH (10:12)
[2019-05-16] MEDS: LIORESAL PO SCH (10:12)
[2019-05-16] MEDS: ROCEPHIN 2 GM in NS 50 ML IV SCH (10:12)
[2019-05-16] MEDS: NICODERM PATCH TD SCH (10:13)
[2019-05-16] MEDS: TOBREX OPH SOLN RIGHT EYE SCH ×2 (10:13→21:13)
--- NOTE | 2019-05-16 14:48 | PROGRESS NOTE ---
DATE: 05/16/2019 SUBJECTIVE: The patient has no major complaints. OBJECTIVE: Vital signs: Blood pressure 139/79, heart rate 103, respiratory rate 18, temperature 98.2 degrees, 100% on 4 L. Cardiovascular: Regular rate and rhythm. Pulmonary: Bilateral breath sounds clear to auscultation. Gastrointestinal: Soft, nontender, nondistended. Bowel sounds were positive. Extremity: No clubbing or cyanosis. Lymphatics: No peripheral edema. Neurological: Nonfocal but he is very, very sedated. LABORATORY DATA: White count is 12, hemoglobin and hematocrit 9 and 30, platelets 779,000. Basic was normal. ASSESSMENT AND PLAN: 1. Enterobacter cloacae urinary tract infection. He is on Rocephin and he has been on that for 4 days, day 4, which may be causing some of his confusion. 2. Metabolic encephalopathy. He still very confused. I really am not quite sure why Dr. Garrido is following. I am going to stop his Librium and try to hold everything sedating. He has been here since the and he is still getting sedating medications. I am going to stop his baclofen too, dicyclomine. I do not even think he is getting anything p.r.n., but he is very agitated. 3. Protein calorie malnutrition. We will continue NG feeding and follow closely. 4. Patellar fracture. We will continue pain control and monitor. 5. Hypertension. We will continue his regular medications. Seems to be overall controlled. 6. Disposition. Really cannot do much with his status until he is a little bit less agitated. We may have to look at placement issues. I am not sure of what his rehab options are. He is self-pay, so there will be very limited options there. cc: Pierce Wei MD
[2019-05-16] MEDS ORDERED: LIBRIUM PO SCH ×2 (15:00→21:00)
[2019-05-16] MEDS: PROTONIX IV SCH (15:56)
[2019-05-16] MEDS ORDERED: SEROQUEL PO SCH (21:00)
[2019-05-17] MEDS: LOPRESSOR IV SCH ×4 (03:06→20:20)
[2019-05-17] MEDS: NICODERM PATCH TD SCH (10:04)
[2019-05-17] MEDS: VITAMIN B-1 NG SCH (10:04)
[2019-05-17] MEDS: FOLIC ACID NG SCH (10:05)
[2019-05-17] MEDS: TOBREX OPH SOLN RIGHT EYE SCH ×2 (10:05→20:20)
[2019-05-17] MEDS: PRINIVIL NG SCH (10:05)
[2019-05-17] MEDS: ROCEPHIN 2 GM in NS 50 ML IV SCH (10:25)
[2019-05-17 11:31] LABS: BASO# 0.08 X1000 (0.0-0.2); BASO% 0.6 % (0.0-0.8); EOS# 0.09 X1000 (0.0-0.7); EOS% 0.7 % (0.0-10.0); HEMATOCRIT 28.8 % (42.0-52.0); HEMOGLOBIN 8.9 g/dL (14.0-18.0); IMM GRAN# 0.14 X1000 (0.0-0.04); IMM GRAN% 1.1 % (0.0-0.5); LYMPH# 1.39 X1000 (1.2-3.4); LYMPH% 10.5 % (20.5-51.1); MCH 28.3 PG (27-31); MCHC 30.9 g/dL (33-37); MCV 91.7 FL (81-99); MONO# 1.07 X1000 (0.11-0.59); MONO% 8.1 % (1.7-9.3); MPV 8.9 FL (7.4-10.4); NEUT# 10.49 X1000 (1.4-6.5); PLT 651 X1000 (130-400); RBC 3.14 XMIL (4.7-6.1); RDW 14.2 % (11.5-14.5); WBC 13.26 X1000 (4.8-10.8)
[2019-05-17 12:08] LABS: AGAP 12; BUN 19 mg/dL (8-22); CHLORIDE 96 mmol/L (98-107); COSMO 278; CREATININE 0.6 mg/dL (0.7-1.2); ESTIMATED GFR > 60; GLUCOSE 172 mg/dL (70-104); POTASSIUM 4.7 mmol/L (3.5-5.1); SODIUM 136 mmol/L (136-145); TCO2 28 mmol/L (25-35)
--- NOTE | 2019-05-17 14:48 | Diag Imaging Result Doc PS360 ---
EXAM: CHEST-PORTABLE - 05/17/2019 HISTORY: new productive cough. TECHNIQUE: Portable chest COMPARISON: 05/16/2019 CT thorax FINDINGS: Heart size appears within normal limits. Inspiration is mildly shallow. There is mild atelectasis or infiltrate at the right base. There is no dense consolidation, pleural effusion, or pneumothorax identified. Nasogastric tube remains in place. IMPRESSION: Mildly shallow inspiration. Mild atelectasis or infiltrate at right base. Electronically signed by Uzair Grissom 05/17/2019 2:46 PM
[2019-05-17] MEDS: PROTONIX IV SCH (16:27)
--- NOTE | 2019-05-17 17:06 | PROGRESS NOTE ---
DATE: 05/17/2019 SUBJECTIVE: Patient has no focal complaints, although he seems maybe a little bit more awake today. OBJECTIVE: Vital signs: Blood pressure is 131/70, heart rate of 108, respiratory rate of 26, temperature of 98.7 degrees, 100% saturation on 4 L. I think he has been afebrile. Cardiovascular: He is tachy. Pulmonary: He has rhonchi. GI: Soft, nontender, nondistended. Bowel sounds are positive. LABORATORY DATA: White count 13, hemoglobin and hematocrit 8 and 28, platelets of 651,000. Basic was normal. PROBLEM LIST: 1. Enterobacter cloacae urinary tract infection. He is on Rocephin, day 5. 2. Encephalopathy. Is still an issue. I have tried to stop almost everything sedating just to see if maybe that will help with his mental status. He is perhaps a little bit more awake today, but still fairly confused. 3. Severe protein-calorie malnutrition. He is on NG tube. When he is more awake we will work on trying to take the NG tube out. 4. Possible right lower lobe infiltrate, aspiration type. I may expand his antibiotic coverage and follow. 5. Patellar fracture. We will continue supportive care. 6. Hypertension is stable. DISPOSITION: Pending clinical status. We will continue to follow closely. cc: Pierce Wei MD
[2019-05-17] MEDS: MAXIPIME 2 GM in NS 100 ML IV SCH (17:13)
[2019-05-17] MEDS: TYLENOL NG PRN (21:49)
[2019-05-18] MEDS: HALDOL IV PRN (00:35)
[2019-05-18] MEDS: MORPHINE IV PRN (01:32)
[2019-05-18] MEDS: LOPRESSOR IV SCH ×3 (03:41→16:09)
[2019-05-18] MEDS: MAXIPIME 2 GM in NS 100 ML IV SCH ×2 (05:10→16:38)
[2019-05-18 07:23] LABS: BASO# 0.05 X1000 (0.0-0.2); BASO% 0.4 % (0.0-0.8); EOS# 0.15 X1000 (0.0-0.7); EOS% 1.2 % (0.0-10.0); HEMATOCRIT 29.1 % (42.0-52.0); HEMOGLOBIN 8.9 g/dL (14.0-18.0); IMM GRAN# 0.12 X1000 (0.0-0.04); LYMPH# 1.26 X1000 (1.2-3.4); MCH 28.9 PG (27-31); MCHC 30.6 g/dL (33-37); MCV 94.5 FL (81-99); MONO# 1.23 X1000 (0.11-0.59); MONO% 9.8 % (1.7-9.3); MPV 9.7 FL (7.4-10.4); NEUT# 9.77 X1000 (1.4-6.5); NEUT% 77.6 % (42.2-75.2); PLT 625 X1000 (130-400); RBC 3.08 XMIL (4.7-6.1); RDW 14.6 % (11.5-14.5); WBC 12.58 X1000 (4.8-10.8)
[2019-05-18 07:41] LABS: AGAP 10; BUN 23 mg/dL (8-22); CALCIUM 9.4 mg/dL (8.8-10.2); CHLORIDE 98 mmol/L (98-107); COSMO 283; CREATININE 0.6 mg/dL (0.7-1.2); ESTIMATED GFR > 60; GLUCOSE 165 mg/dL (70-104); MAGNESIUM 2.2 mg/dL (1.5-2.7); PHOSPHORUS 4.6 mg/dL (2.7-4.5); POTASSIUM 4.7 mmol/L (3.5-5.1); SODIUM 138 mmol/L (136-145); TCO2 30 mmol/L (25-35)
[2019-05-18] MEDS: PRINIVIL NG SCH (08:44)
[2019-05-18] MEDS: FOLIC ACID NG SCH (08:44)
[2019-05-18] MEDS: VITAMIN B-1 NG SCH (08:44)
[2019-05-18] MEDS: TOBREX OPH SOLN RIGHT EYE SCH ×2 (08:45→20:48)
[2019-05-18] MEDS: NICODERM PATCH TD SCH (08:45)
--- NOTE | 2019-05-18 12:30 | PROGRESS NOTE ---
DATE: 05/18/2019 Mr. Tijerina is much more awake and alert, brighter, more attentive, and much more spontaneous today than when I last saw him 3 days ago. Speech continues very dysarthric, sometimes difficult to understand but I could understand most of what he told me. He reports no headache. His neck is a little bit tender on passive and active turning to the left. He has been resting with head turned to the right most of the times when I have seen him in the last few weeks. There is not meningismus or difficulty with extension of the head. He had temperature recorded 100.3 last p.m. Last WBC is 12,500. IMPRESSION: Global encephalopathy, definitely improved today. Features are consistent with alcohol-related encephalopathy. I do not have any urgent suggestion. Thanks for asking neurology to see Mr. Tijerina. cc: MD LASHAWN Alcala III
--- NOTE | 2019-05-18 13:53 | PROGRESS NOTE ---
DATE: 05/18/2019 SUBJECTIVE: Patient has no major complaints. He is much more awake today. He is following commands. He says his name, his date, what is going on, so I think maybe some of this may have been related to some of the medications he has been on. OBJECTIVE: Vital Signs: Blood pressure is 156/84, heart rate of 110, respiratory rate of 24, temperature 99.8 degrees, 96% on 3 L. Cardiovascular: Regular rate and rhythm. Pulmonary: Bilateral breath sounds. GI: Soft, nontender, and nondistended. Bowel sounds are positive. LABORATORY DATA: White count is 12, hemoglobin and hematocrit 8.9 and 29, platelets 625,000. PROBLEM LIST: 1. Enterobacter cloacae urinary tract infection. He is on Rocephin day 6. 2. Encephalopathy, seems to be better. We have stopped everything, sedating or at least most of his sedating medications. He just has Haldol. He seems to be recovering somewhat, so hopefully he will continue to recover as predicted per Dr. Garrido, just stopping some of these medications has improved his status. 3. Hypertension. We will continue medications and follow. 4. Alcohol abuse. We will work on long-term care and see how he does here. We will continue to monitor closely. DISPOSITION: Pending his clinical status today I am going to try to get him to remove the NG tube if his swallowing is okay, and then pursue just alimentation normally and then we will start working with physical therapy and getting him up out of the bed. cc: Pierce Wei MD
[2019-05-18] MEDS: SODIUM CHLORIDE 0.9% INJ SCH (16:09)
[2019-05-18] MEDS: PROTONIX IV SCH (16:09)
[2019-05-18] MEDS: LOPRESSOR PO SCH (19:26)
[2019-05-18] MEDS: TYLENOL NG PRN (21:02)
[2019-05-19] MEDS: LOPRESSOR PO SCH ×4 (02:39→21:17)
[2019-05-19] MEDS: MAXIPIME 2 GM in NS 100 ML IV SCH ×2 (05:51→16:40)
[2019-05-19] MEDS: PROTONIX PO SCH ×2 (05:51→06:00)
[2019-05-19 07:18] LABS: HEMATOCRIT 29.1 % (42.0-52.0); HEMOGLOBIN 9.1 g/dL (14.0-18.0); MCH 28.7 PG (27-31); MCHC 31.3 g/dL (33-37); MCV 91.8 FL (81-99); RBC 3.17 XMIL (4.7-6.1); RDW 14.1 % (11.5-14.5); WBC 12.66 X1000 (4.8-10.8)
[2019-05-19 07:19] LABS: BASO# 0.05 X1000 (0.0-0.2); BASO% 0.4 % (0.0-0.8); EOS% 0.8 % (0.0-10.0); IMM GRAN% 0.8 % (0.0-0.5); LYMPH# 1.28 X1000 (1.2-3.4); LYMPH% 10.1 % (20.5-51.1); MONO# 0.92 X1000 (0.11-0.59); MONO% 7.3 % (1.7-9.3); MPV 9.5 FL (7.4-10.4); NEUT# 10.21 X1000 (1.4-6.5); NEUT% 80.6 % (42.2-75.2); PLT 598 X1000 (130-400)
[2019-05-19 07:37] LABS: AGAP 11; BUN 22 mg/dL (8-22); CALCIUM 9.6 mg/dL (8.8-10.2); CHLORIDE 97 mmol/L (98-107); COSMO 275; CREATININE 0.6 mg/dL (0.7-1.2); ESTIMATED GFR > 60; GLUCOSE 102 mg/dL (70-104); POTASSIUM 4.8 mmol/L (3.5-5.1); SODIUM 136 mmol/L (136-145); TCO2 28 mmol/L (25-35)
[2019-05-19 08:01] LABS: PHOSPHORUS 5.3 mg/dL (2.7-4.5)
[2019-05-19] MEDS: NICODERM PATCH TD SCH (08:17)
[2019-05-19] MEDS: PRINIVIL NG SCH (08:17)
[2019-05-19] MEDS: VITAMIN B-1 NG SCH (08:17)
[2019-05-19] MEDS: FOLIC ACID NG SCH (08:17)
[2019-05-19] MEDS: TOBREX OPH SOLN RIGHT EYE SCH ×2 (08:17→21:17)
[2019-05-19] MEDS: HALDOL IV PRN ×2 (09:43→15:25)
--- NOTE | 2019-05-19 10:39 | PROGRESS NOTE ---
DATE: 05/19/2019 LOCATION: Room 218. Mr. Tijerina is even brighter today than yesterday. He is much more spontaneous. He is moving all limbs and shifting his position in the bed better than before. Speech is less dysarthric, but still difficult to understand at times. He is afebrile. I do not have any new thoughts or new suggestions from Neurology standpoint today. Thanks for asking us to see Mr. Tijerina. cc: MD LASHAWN Alcala III
[2019-05-19] MEDS ORDERED: RISPERDAL PO ONE (16:49)
--- NOTE | 2019-05-19 17:11 | PROGRESS NOTE ---
DATE: 05/19/2019 The patient is very confused this afternoon. He really has no idea where he is or what is going on. In any case patient he is agitated and just very confused. OBJECTIVE: Blood pressure is 135/72, heart rate of 97, respiratory 23, temperature 99.6 degrees, 97% on 3 L.Cardiovascular: Regular rate and rhythm. Pulmonary: Bilateral breath sounds clear to auscultation. GI: Soft, nontender, nondistended. Bowel sounds are positive. LABORATORY DATA: White count 12, hemoglobin and hematocrit 9, 29, platelets 598,000. Basic was normal. PROBLEM LIST: 1. Enterobacter urinary tract infection on Rocephin day 7. 2. 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 We will continue to monitor very closely but he is still agitated. I am going to start him on Risperdal, see if that helps with his agitation. 3. Hypertension. Continue regular medications. 4. Alcohol abuse with alcohol withdrawal syndrome. We will continue to follow closely. cc: Pierce Wei MD
[2019-05-19] MEDS: RISPERDAL PO SCH (21:17)
[2019-05-20] MEDS: LOPRESSOR PO SCH ×5 (01:48→20:51)
[2019-05-20] MEDS: MAXIPIME 2 GM in NS 100 ML IV SCH ×2 (04:03→16:48)
[2019-05-20] MEDS: PROTONIX PO SCH ×2 (05:35→08:10)
[2019-05-20 07:31] LABS: BASO# 0.03 X1000 (0.0-0.2); BASO% 0.3 % (0.0-0.8); EOS# 0.08 X1000 (0.0-0.7); EOS% 0.7 % (0.0-10.0); HEMATOCRIT 29.1 % (42.0-52.0); IMM GRAN# 0.07 X1000 (0.0-0.04); IMM GRAN% 0.6 % (0.0-0.5); LYMPH# 1.15 X1000 (1.2-3.4); LYMPH% 9.9 % (20.5-51.1); MCH 28.5 PG (27-31); MCHC 30.9 g/dL (33-37); MCV 92.1 FL (81-99); MONO# 0.89 X1000 (0.11-0.59); MONO% 7.6 % (1.7-9.3); MPV 9.7 FL (7.4-10.4); NEUT# 9.43 X1000 (1.4-6.5); NEUT% 80.9 % (42.2-75.2); PLT 558 X1000 (130-400); RBC 3.16 XMIL (4.7-6.1); RDW 14.2 % (11.5-14.5); WBC 11.65 X1000 (4.8-10.8)
[2019-05-20 07:49] LABS: AGAP 13; BUN 32 mg/dL (8-22); CALCIUM 9.7 mg/dL (8.8-10.2); CHLORIDE 99 mmol/L (98-107); COSMO 286; CREATININE 0.7 mg/dL (0.7-1.2); ESTIMATED GFR > 60; GLUCOSE 121 mg/dL (70-104); POTASSIUM 4.5 mmol/L (3.5-5.1); SODIUM 139 mmol/L (136-145); TCO2 27 mmol/L (25-35)
[2019-05-20] MEDS: FOLIC ACID PO SCH (08:08)
[2019-05-20] MEDS: PRINIVIL PO SCH (08:08)
[2019-05-20] MEDS: RISPERDAL PO SCH ×3 (08:08→20:51)
[2019-05-20] MEDS: NICODERM PATCH TD SCH (08:09)
[2019-05-20] MEDS: TOBREX OPH SOLN RIGHT EYE SCH ×2 (08:10→20:49)
[2019-05-20] MEDS: VITAMIN B-1 PO SCH (08:10)
[2019-05-20] MEDS ORDERED: DUONEB (A & A) INH PRN (12:00)
[2019-05-20] MEDS: HALDOL IV PRN ×2 (12:27→22:03)
--- NOTE | 2019-05-20 12:36 | PROGRESS NOTE ---
DATE: 05/20/2019 The patient is still very confused today. SUBJECTIVE: 1. He is confused. He has visual hallucinations. I have initiated Risperdal. We will continue to follow closely, but overall seems to be improved. 2. Encephalopathy. We will continue supportive care, but he is still very confused. 3. Hypertension. He is stable on current medications. 4. Questionable pneumonia. CT scan shows right lower lobe infiltrate. He is on cefepime, and has been since the , so 4 days. We will continue breathing treatments and follow. 5. Disposition is difficult. He is still not mentating appropriately. He does not have any outpatient services available. We will continue to work on strength training. His is involved in his care, but right now is not stable enough to go home. He is still very agitated. I am going to pursue an MRI if possible just to make sure there is not even a stroke or other issues going on. We will continue to follow. DISPOSITION: Pending his clinical status. cc: Pierce Wei MD
--- NOTE | 2019-05-20 13:26 | Diag Imaging Result Doc PS360 ---
EXAM: MRI BRAIN W/WO CONTRAST INDICATION: r/o cva/encephalitis COMPARISON: CT head dated 05/11/2019. No prior MRI brain is available for comparison. FINDINGS: There is no evidence of acute infarct. The deep white matter signal is unremarkable. There is no discrete intracranial mass, mass effect, or intracranial hemorrhage. There is no evidence of abnormal intracranial enhancement. The surrounding soft tissues and bony structures are essentially unremarkable. IMPRESSION: No evidence of acute intracranial pathology and essentially unremarkable, otherwise. Electronically signed by Jerod Sin 05/20/2019 1:23 PM
[2019-05-20] MEDS: DUONEB (A & A) INH SCH ×2 (15:03→23:35)
[2019-05-21] MEDS: LOPRESSOR PO SCH ×5 (01:17→20:31)
[2019-05-21] MEDS: DUONEB (A & A) INH SCH ×3 (03:52→14:52)
[2019-05-21] MEDS: MAXIPIME 2 GM in NS 100 ML IV SCH ×2 (03:59→17:15)
[2019-05-21] MEDS: PROTONIX PO SCH ×2 (05:33→06:01)
[2019-05-21 08:04] LABS: BASO# 0.03 X1000 (0.0-0.2); BASO% 0.2 % (0.0-0.8); EOS# 0.12 X1000 (0.0-0.7); EOS% 0.9 % (0.0-10.0); HEMATOCRIT 28.3 % (42.0-52.0); HEMOGLOBIN 8.9 g/dL (14.0-18.0); IMM GRAN# 0.06 X1000 (0.0-0.04); IMM GRAN% 0.4 % (0.0-0.5); LYMPH# 1.28 X1000 (1.2-3.4); LYMPH% 9.1 % (20.5-51.1); MCH 28.8 PG (27-31); MCHC 31.4 g/dL (33-37); MCV 91.6 FL (81-99); MONO# 1.11 X1000 (0.11-0.59); MONO% 7.9 % (1.7-9.3); MPV 9.6 FL (7.4-10.4); NEUT% 81.5 % (42.2-75.2); PLT 535 X1000 (130-400); RBC 3.09 XMIL (4.7-6.1); RDW 14.1 % (11.5-14.5)
[2019-05-21 08:37] LABS: AGAP 13; CHLORIDE 100 mmol/L (98-107); POTASSIUM 4.4 mmol/L (3.5-5.1); SODIUM 139 mmol/L (136-145); TCO2 26 mmol/L (25-35)
[2019-05-21 08:38] LABS: ALB/GLOB RATIO 0.6; ALBUMIN 2.9 g/dL (3.5-5.0); ALKALINE PHOSPHATASE 109 U/L (32-122); BUN 31 mg/dL (8-22); CALCIUM 9.7 mg/dL (8.8-10.2); COSMO 285; CREATININE 0.7 mg/dL (0.7-1.2); ESTIMATED GFR > 60; GLUCOSE 119 mg/dL (70-104); GOT 41 U/L (10-34); GPT 27 U/L (10-44); TOTAL BILIRUBIN 0.27 mg/dL (0.20-1.00); TOTAL PROTEIN 7.7 g/dL (6.3-8.3)
[2019-05-21] MEDS: PRINIVIL PO SCH (10:27)
[2019-05-21] MEDS: RISPERDAL PO SCH ×2 (10:27→20:31)
[2019-05-21] MEDS: VITAMIN B-1 PO SCH (10:28)
[2019-05-21] MEDS: NICODERM PATCH TD SCH (10:28)
[2019-05-21] MEDS: FOLIC ACID PO SCH (11:06)
[2019-05-21] MEDS: TOBREX OPH SOLN RIGHT EYE SCH ×2 (11:07→20:32)
--- NOTE | 2019-05-21 14:14 | PROGRESS NOTE ---
DATE: 05/21/2019 SUBJECTIVE: Mr. Tijerina reports no headache and no other specific complaint. OBJECTIVE: He is resting comfortably on his left side. He is demonstrating better range of motion in the neck today. He is awake, alert, attentive. Speech continues to be less dysarthric but still is difficult to understand at times. IMPRESSION: His encephalopathy seems to be improving. PLAN: I do not have any specific suggestion from neurologic standpoint. Would continue current management. Thanks for asking us to see him. cc: Eden Garrido III, MD [facility]
[2019-05-21] MEDS: HALDOL IV PRN ×2 (14:56→19:37)
[2019-05-21] MEDS ORDERED: NICODERM PATCH TD PRN (16:32)
--- NOTE | 2019-05-21 18:01 | PROGRESS NOTE ---
DATE: 05/21/2019 SUBJECTIVE: He is awake and he does talk appropriately, but he is just still very agitated. I do not really have a great explanation for that. He is really not improving as far as his level of confusion. He does recognize his but he really does not know where he is. He is wanting to leave the hospital, go to [facility]. He really has no kind of understanding of his condition. LABORATORY DATA: White count has jumped up a little bit so I think we may need to make sure there is no occult infection, chest x-ray, urine, and follow closely. ASSESSMENT AND PLAN: 1. Encephalopathy. We will continue supportive care. 2. Severe protein-calorie malnutrition. We will initiate Clinimix and initiate lipids and see how he does. 3. History of alcohol abuse and withdrawal. He seems to be improving. I am not sure at this point if the previous medications he had been on have been contributing to his delirium, but we have upped his Risperdal and we will continue to follow. 4. Disposition. Pending his clinical status. He has no outpatient resources for rehab. So, until he is able to get up and around on his own more, we will continue to follow. cc: Pierce Wei MD
[2019-05-21] MEDS: LIPOSYN 20% 500 ML IV SCH (18:29)
[2019-05-21] MEDS: CLINIMIX E 4.25%-5% SOLUTION 1,000 ML IV SCH (18:29)
[2019-05-21] MEDS: ATROVENT NEB INH SCH (21:21)
[2019-05-21] MEDS: XOPENEX NEB INH SCH (21:21)
[2019-05-22] MEDS: HALDOL IV PRN ×2 (00:10→13:44)
[2019-05-22] MEDS: MORPHINE IV PRN (00:29)
[2019-05-22] MEDS: LOPRESSOR PO SCH ×4 (01:18→20:21)
[2019-05-22] MEDS: CLINIMIX E 4.25%-5% SOLUTION 1,000 ML IV SCH ×3 (01:44→22:21)
[2019-05-22] MEDS: ATROVENT NEB INH SCH ×4 (03:38→22:50)
[2019-05-22] MEDS: MAXIPIME 2 GM in NS 100 ML IV SCH ×3 (04:15→16:38)
[2019-05-22] MEDS: PROTONIX PO SCH ×2 (04:55→07:17)
[2019-05-22] MEDS: FOLIC ACID PO SCH (09:31)
[2019-05-22] MEDS: VITAMIN B-1 PO SCH (09:31)
[2019-05-22] MEDS: PRINIVIL PO SCH (09:31)
[2019-05-22] MEDS: RISPERDAL PO SCH ×2 (09:31→20:20)
[2019-05-22] MEDS: TOBREX OPH SOLN RIGHT EYE SCH ×2 (09:33→20:22)
[2019-05-22] MEDS: XOPENEX NEB INH SCH ×3 (10:33→22:50)
--- NOTE | 2019-05-22 12:52 | PROGRESS NOTE ---
DATE: 05/22/2019 Mr. Tijerina is resting comfortably on his left side with head turned to the left. He has continued confused and dysarthric, but seems to be slowly improving day by day. I believe there must be a baseline cognitive impairment to account for his very slow recovery. I do not have any new thoughts or new suggestions from Neurology standpoint today. Thanks for asking Neurology to see Mr. Tijerina. cc: Eden Garrido III, MD [facility]
[2019-05-22] MEDS ORDERED: PRINIVIL PO ONE (15:09)
--- NOTE | 2019-05-22 15:24 | PROGRESS NOTE ---
DATE: 05/22/2019 SUBJECTIVE: Patient has no major complaints. OBJECTIVE: 172/81 initially but the last blood pressure I go was 90, heart rate 115, 99% on 3 L.Cardiovascular: Regular rate and rhythm. Pulmonary: Bilateral breath sounds, clear to auscultation. GI: Soft, nontender, nondistended. Bowel sounds are positive. LABORATORY DATA: White count 14, hemoglobin and hematocrit 8.9 and 28, platelets 535,000. Basic was normal. AST 41. PROBLEM LIST: 1. 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 He seems to be doing better but very slow improvement. Appreciate Dr. Garrido's help. We have discussed about him. We will continue supportive measures. 2. Protein calorie malnutrition. We will continue Clinimix, lipids and follow, continue encourage eating. 3. Alcohol abuse, alcohol withdrawal syndrome. He seems to be stable. I have put him on a little bit of Risperdal to help with that. DISPOSITION: We will continue PT, try to get him up into a chair, work on getting him a little stronger. I think he is probably going to be good enough to go to the floor here soon. We will continue to monitor closely. cc: Pierce Wei MD
[2019-05-22] MEDS: LIPOSYN 20% 500 ML IV SCH (16:38)
[2019-05-23] MEDS: MORPHINE IV PRN (00:47)
[2019-05-23] MEDS: LOPRESSOR PO SCH ×4 (01:52→20:10)
[2019-05-23] MEDS: ATROVENT NEB INH SCH ×4 (03:28→21:13)
[2019-05-23] MEDS: MAXIPIME 2 GM in NS 100 ML IV SCH ×2 (05:48→16:23)
[2019-05-23] MEDS: PROTONIX PO SCH ×2 (05:48→06:15)
[2019-05-23 07:40] LABS: AGAP 13; BUN 35 mg/dL (8-22); CALCIUM 9.4 mg/dL (8.8-10.2); CHLORIDE 101 mmol/L (98-107); COSMO 282; CREATININE 0.6 mg/dL (0.7-1.2); ESTIMATED GFR > 60; GLUCOSE 138 mg/dL (70-104); POTASSIUM 4.7 mmol/L (3.5-5.1); SODIUM 136 mmol/L (136-145); TCO2 22 mmol/L (25-35)
[2019-05-23 07:42] LABS: PHOSPHORUS 4.9 mg/dL (2.7-4.5)
[2019-05-23 07:54] LABS: BASO# 0.03 X1000 (0.0-0.2); BASO% 0.2 % (0.0-0.8); EOS# 0.11 X1000 (0.0-0.7); EOS% 0.7 % (0.0-10.0); HEMATOCRIT 26.5 % (42.0-52.0); HEMOGLOBIN 8.3 g/dL (14.0-18.0); IMM GRAN# 0.05 X1000 (0.0-0.04); IMM GRAN% 0.3 % (0.0-0.5); LYMPH# 1.39 X1000 (1.2-3.4); LYMPH% 9.4 % (20.5-51.1); MCH 28.4 PG (27-31); MCHC 31.3 g/dL (33-37); MCV 90.8 FL (81-99); MONO# 1.29 X1000 (0.11-0.59); MONO% 8.8 % (1.7-9.3); MPV 9.8 FL (7.4-10.4); NEUT# 11.85 X1000 (1.4-6.5); NEUT% 80.6 % (42.2-75.2); PLT 498 X1000 (130-400); RBC 2.92 XMIL (4.7-6.1); RDW 14.3 % (11.5-14.5); WBC 14.72 X1000 (4.8-10.8)
[2019-05-23] MEDS: RISPERDAL PO SCH (10:09)
[2019-05-23] MEDS: CLINIMIX E 4.25%-5% SOLUTION 1,000 ML IV SCH ×2 (10:09→20:10)
[2019-05-23] MEDS: VITAMIN B-1 PO SCH (10:09)
[2019-05-23] MEDS: PRINIVIL PO SCH (10:09)
[2019-05-23] MEDS: FOLIC ACID PO SCH (10:09)
[2019-05-23] MEDS: TOBREX OPH SOLN RIGHT EYE SCH ×2 (10:10→20:11)
[2019-05-23] MEDS: XOPENEX NEB INH SCH ×3 (11:04→21:13)
[2019-05-23] MEDS ORDERED: BENADRYL IV ONE (13:14)
--- NOTE | 2019-05-23 13:50 | PROGRESS NOTE ---
DATE: 05/23/2019 SUBJECTIVE: He is a bit more awake, but he is just not very alert. OBJECTIVE: Vital Signs: Blood pressure 128/72, heart rate 109, respiratory rate 36, temperature 98.1 degrees, satting 100% on 2 L. Cardiovascular: Regular rate and rhythm. Pulmonary: Bilateral breath sounds. Clear to auscultation. GI: Soft, nontender, nondistended. Bowel sounds are positive. Neurologic: I think to me he has this no eye deviation, but his head is kind of turned to the left, which apparently is the side he favors, but his muscles do seem to have increased rigidity on that side. I am not sure if this is self-inflicted versus a muscle spasm issue related to his neuroleptic medication. LABORATORY DATA: White count is 14, hemoglobin and hematocrit 8 and 26, platelets 498. Basic was normal. PROBLEM LIST: 1. Metabolic encephalopathy is persistent. I think he has got either alcohol- associated dementia or a Wernicke's encephalopathy. That will be slow to resolve it if it even resolves completely. We will continue supportive measures and follow. I am going to try to see if we can get by without any neuroleptic medications. We have had to use them in the past. He has been out of restraints and I will follow. 2. Protein calorie malnutrition. He is on Clinimix, lipids. We will start an appetite stimulant today. 3. Alcohol abuse, alcohol withdrawal syndrome. That again has resolved. I am going to hold Risperdal at this point. DISPOSITION: We will continue with PT, and see how he does, kind of getting up and around. He has no outpatient benefits, so we will continue doing what we can, strength training so he just does not get too weak I guess. We will continue to monitor closely. cc: Pierce Wei MD
[2019-05-23] MEDS: MEGACE LIQUID PO SCH (14:03)
[2019-05-23] MEDS: COGENTIN IM SCH (14:46)
[2019-05-23] MEDS: LIPOSYN 20% 500 ML IV SCH (16:23)
[2019-05-24] MEDS: MORPHINE IV PRN ×2 (00:04→20:47)
[2019-05-24] MEDS: COGENTIN IM SCH ×3 (00:05→13:56)
[2019-05-24] MEDS: LOPRESSOR PO SCH ×5 (00:05→20:47)
[2019-05-24] MEDS: ATROVENT NEB INH SCH ×4 (03:26→22:25)
[2019-05-24] MEDS: TYLENOL PO PRN (04:26)
[2019-05-24] MEDS: MAXIPIME 2 GM in NS 100 ML IV SCH ×2 (04:26→17:20)
[2019-05-24] MEDS ORDERED: CALMOSEPTINE OINTMENT TOP PRN (04:42)
[2019-05-24] MEDS: CLINIMIX E 4.25%-5% SOLUTION 1,000 ML IV SCH ×2 (05:59→15:35)
[2019-05-24 07:44] LABS: BASO# 0.03 X1000 (0.0-0.2); BASO% 0.2 % (0.0-0.8); EOS# 0.12 X1000 (0.0-0.7); EOS% 0.9 % (0.0-10.0); HEMATOCRIT 26.2 % (42.0-52.0); HEMOGLOBIN 8.5 g/dL (14.0-18.0); IMM GRAN# 0.05 X1000 (0.0-0.04); IMM GRAN% 0.4 % (0.0-0.5); LYMPH# 1.26 X1000 (1.2-3.4); LYMPH% 9.4 % (20.5-51.1); MCH 29.2 PG (27-31); MCHC 32.4 g/dL (33-37); MONO# 1.16 X1000 (0.11-0.59); MONO% 8.6 % (1.7-9.3); NEUT# 10.84 X1000 (1.4-6.5); NEUT% 80.5 % (42.2-75.2); PLT 448 X1000 (130-400); RBC 2.91 XMIL (4.7-6.1); RDW 14.2 % (11.5-14.5); WBC 13.46 X1000 (4.8-10.8)
[2019-05-24 07:52] LABS: AGAP 13; BUN 43 mg/dL (8-22); CALCIUM 9.9 mg/dL (8.8-10.2); CHLORIDE 100 mmol/L (98-107); COSMO 281; CREATININE 0.7 mg/dL (0.7-1.2); ESTIMATED GFR > 60; GLUCOSE 131 mg/dL (70-104); MAGNESIUM 2.2 mg/dL (1.5-2.7); PHOSPHORUS 5.4 mg/dL (2.7-4.5); SODIUM 134 mmol/L (136-145); TCO2 21 mmol/L (25-35)
[2019-05-24] MEDS: XOPENEX NEB INH SCH ×3 (08:00→22:25)
[2019-05-24] MEDS: VITAMIN B-1 PO SCH (08:35)
[2019-05-24] MEDS: MEGACE LIQUID PO SCH (08:35)
[2019-05-24] MEDS: PRINIVIL PO SCH (08:35)
[2019-05-24] MEDS: FOLIC ACID PO SCH (08:35)
[2019-05-24] MEDS: PROTONIX PO SCH (08:35)
[2019-05-24] MEDS: TOBREX OPH SOLN RIGHT EYE SCH ×2 (08:36→20:48)
--- NOTE | 2019-05-24 15:06 | PROGRESS NOTE ---
DATE: 05/24/2019 SUBJECTIVE: The patient has no major complaints. He is still very confused. I spent some time explaining situation to his son. OBJECTIVE: Vital signs: Blood pressure is 133/76, heart rate 101, respiratory 18, temperature 98.2 degrees, 100% on 4 L. Cardiovascular: Regular rate and rhythm. Pulmonary: Bilateral breath sounds, clear to auscultation. GI: Soft, nontender, nondistended. Bowel sounds are positive. LABORATORY DATA: White count is 13, hemoglobin and hematocrit 8.5 and 26, platelets 448. Basic was normal. BUN and creatinine were 43 and 0.7. PROBLEM LIST: 1. 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 We will continue supportive measures. I have stopped the Risperdal because he is not sure if he was having some extrapyramidal symptoms associated with that. It looked like he was almost developing torticollis. We gave him some Cogentin and Benadryl. The muscular component seems to be better, but the mental status component is not. 2. Severe protein calorie malnutrition. He is on Clinimix and lipids. Started Megace. We will continue to follow. His son brought up resuming tube feeds, which we discussed this is certainly an option; however, in his current state, it will require most likely restraints because he is not going to keep the tube in and then probably further chemical sedation. That is the state he was in about a week ago, and he was just essentially comatose except for getting tube feeds. PEG tube is, I think, less likely of an option. Number one, he will still be at risk for removing it. 3. History of alcohol abuse, alcohol withdrawal syndrome. We are going to continue to monitor. 4. Disposition. We will continue what we can with supportive care and monitor closely and kind of see how he does. I may start some clonidine. That may have some central suppressive affects, and it may also help with his blood pressure and heart rate. We will tone down his Lopressor accordingly. 1. Pneumonia. He is currently on cefepime. We will continue to monitor closely. cc: Pierce Wei MD
[2019-05-24] MEDS: LIPOSYN 20% 500 ML IV SCH ×2 (15:34→17:58)
[2019-05-24] MEDS: CATAPRES PO SCH (17:20)
[2019-05-25] MEDS: CLINIMIX E 4.25%-5% SOLUTION 1,000 ML IV SCH ×3 (01:45→17:19)
[2019-05-25] MEDS: LOPRESSOR PO SCH ×4 (01:45→21:10)
[2019-05-25] MEDS: ATROVENT NEB INH SCH ×4 (03:52→21:32)
[2019-05-25] MEDS: MAXIPIME 2 GM in NS 100 ML IV SCH ×2 (05:32→16:10)
[2019-05-25] MEDS: PROTONIX PO SCH ×2 (05:33→06:06)
[2019-05-25] MEDS: MORPHINE IV PRN ×2 (05:36→11:05)
[2019-05-25 07:32] LABS: BASO# 0.03 X1000 (0.0-0.2); BASO% 0.3 % (0.0-0.8); EOS# 0.19 X1000 (0.0-0.7); EOS% 1.6 % (0.0-10.0); HEMATOCRIT 24.3 % (42.0-52.0); HEMOGLOBIN 7.8 g/dL (14.0-18.0); IMM GRAN# 0.06 X1000 (0.0-0.04); IMM GRAN% 0.5 % (0.0-0.5); LYMPH# 1.09 X1000 (1.2-3.4); LYMPH% 9.1 % (20.5-51.1); MCH 28.9 PG (27-31); MCHC 32.1 g/dL (33-37); MONO# 1.12 X1000 (0.11-0.59); MONO% 9.4 % (1.7-9.3); MPV 9.7 FL (7.4-10.4); NEUT# 9.43 X1000 (1.4-6.5); NEUT% 79.1 % (42.2-75.2); PLT 445 X1000 (130-400); RDW 14.2 % (11.5-14.5); WBC 11.92 X1000 (4.8-10.8)
[2019-05-25 07:45] LABS: ESTIMATED GFR > 60
[2019-05-25 07:50] LABS: AGAP 12; BUN 63 mg/dL (8-22); CALCIUM 9.8 mg/dL (8.8-10.2); CHLORIDE 98 mmol/L (98-107); COSMO 279; GLUCOSE 131 mg/dL (70-104); MAGNESIUM 2.4 mg/dL (1.5-2.7); POTASSIUM 5.1 mmol/L (3.5-5.1); SODIUM 129 mmol/L (136-145); TCO2 19 mmol/L (25-35)
[2019-05-25] MEDS: XOPENEX NEB INH SCH ×3 (07:51→21:32)
[2019-05-25] MEDS: MEGACE LIQUID PO SCH (08:05)
[2019-05-25] MEDS: CATAPRES PO SCH (08:05)
[2019-05-25] MEDS: FOLIC ACID PO SCH (08:05)
[2019-05-25] MEDS: VITAMIN B-1 PO SCH (08:05)
[2019-05-25] MEDS: PRINIVIL PO SCH (08:05)
[2019-05-25] MEDS: TOBREX OPH SOLN RIGHT EYE SCH ×2 (08:06→21:11)
[2019-05-25] MEDS: LIPOSYN 20% 500 ML IV SCH (16:10)
[2019-05-25] MEDS ORDERED: NS 1,000 ML IV ONE (16:30)
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
--- NOTE | 2019-05-25 17:49 | Diag Imaging Result Doc PS360 ---
EXAM: CERVICAL SPINE 2-VIEWS INDICATION: neuralgia TECHNIQUE: 3 views COMPARISON: None. FINDINGS: The bones are osteopenic. There is extensive endplate and facet degenerative change throughout the cervical spine. Some of the lower cervical vertebrae are somewhat obscured by overlying soft tissues. No discrete fracture, subluxation, or significant intrinsic osseous lesion is appreciated, otherwise. Surrounding soft tissues are unremarkable. IMPRESSION: Osteopenia and multilevel degenerative arthropathy as described. No definite acute pathology by plain radiograph. Electronically signed by Jerod Sin 05/25/2019 5:47 PM
[2019-05-25] MEDS: THERA M PLUS PO SCH (21:10)
[2019-05-25] MEDS: COGENTIN PO SCH (21:46)
[2019-05-25] MEDS: ATIVAN IV PRN (23:14)
[2019-05-26] MEDS: CLINIMIX E 4.25%-5% SOLUTION 1,000 ML IV SCH ×2 (01:54→21:19)
[2019-05-26] MEDS: LOPRESSOR PO SCH ×5 (02:30→21:31)
[2019-05-26] MEDS: MORPHINE IV PRN ×3 (02:30→22:06)
[2019-05-26] MEDS: ATIVAN IV PRN ×3 (03:22→20:54)
[2019-05-26] MEDS: MAXIPIME 2 GM in NS 100 ML IV SCH ×2 (04:12→17:03)
[2019-05-26] MEDS: ATROVENT NEB INH SCH ×4 (05:29→21:39)
[2019-05-26] MEDS: DUONEB (A & A) INH SCH (05:57)
[2019-05-26] MEDS: PROTONIX PO SCH (06:32)
[2019-05-26 07:41] LABS: ESTIMATED GFR > 60
[2019-05-26 07:43] LABS: AGAP 12; BUN 57 mg/dL (8-22); CALCIUM 9.7 mg/dL (8.8-10.2); CHLORIDE 99 mmol/L (98-107); COSMO 273; CREATININE 0.7 mg/dL (0.7-1.2); GLUCOSE 107 mg/dL (70-104); MAGNESIUM 2.1 mg/dL (1.5-2.7); PHOSPHORUS 4.3 mg/dL (2.7-4.5); POTASSIUM 5.1 mmol/L (3.5-5.1); SODIUM 128 mmol/L (136-145); TCO2 17 mmol/L (25-35)
[2019-05-26] MEDS: XOPENEX NEB INH SCH ×3 (08:24→21:39)
[2019-05-26 08:38] LABS: HEMATOCRIT 24.3 % (42.0-52.0); HEMOGLOBIN 7.8 g/dL (14.0-18.0); MCH 28.5 PG (27-31); MCHC 32.1 g/dL (33-37); MCV 88.7 FL (81-99); RBC 2.74 XMIL (4.7-6.1); WBC 9.73 X1000 (4.8-10.8)
[2019-05-26 08:39] LABS: BASO# 0.03 X1000 (0.0-0.2); BASO% 0.3 % (0.0-0.8); EOS# 0.18 X1000 (0.0-0.7); EOS% 1.8 % (0.0-10.0); IMM GRAN# 0.06 X1000 (0.0-0.04); IMM GRAN% 0.6 % (0.0-0.5); LYMPH# 1.07 X1000 (1.2-3.4); MONO# 1.05 X1000 (0.11-0.59); MONO% 10.8 % (1.7-9.3); MPV 10.3 FL (7.4-10.4); NEUT# 7.34 X1000 (1.4-6.5); NEUT% 75.5 % (42.2-75.2); PLT 457 X1000 (130-400); RDW 13.7 % (11.5-14.5)
[2019-05-26] MEDS: MEGACE LIQUID PO SCH (09:36)
[2019-05-26] MEDS: COGENTIN PO SCH (09:39)
[2019-05-26] MEDS: THERA M PLUS PO SCH (09:39)
[2019-05-26] MEDS: PRINIVIL PO SCH (09:39)
[2019-05-26] MEDS: VITAMIN B-1 PO SCH (09:40)
[2019-05-26] MEDS: FOLIC ACID PO SCH (09:40)
[2019-05-26] MEDS: CATAPRES PO SCH (09:40)
[2019-05-26] MEDS: TOBREX OPH SOLN RIGHT EYE SCH ×2 (09:41→21:19)
[2019-05-26] MEDS ORDERED: SAMSCA PO ONE (13:57)
--- NOTE | 2019-05-26 14:16 | PROGRESS NOTE ---
DATE: 05/26/2019 SUBJECTIVE: The patient has no major complaints. OBJECTIVE: Blood pressure is 118/64, heart rate of 96, respiratory rate of 26, temperature 99.1 degrees, 100% on 3 L.Cardiovascular: Regular rate and rhythm. Pulmonary: Bilateral breath sounds clear to auscultation. Gastrointestinal: Soft, nontender, nondistended. Bowel sounds are positive. LABORATORY DATA: White count is 9, hemoglobin 7.8, hematocrit 24, platelets 457. Sodium 128 with a BUN of 57. Urine electrolytes look more like an SIADH-type issue. I am just not sure why he is so dysfunctional still. Laboratory data as described. PROBLEM LIST: 1. Metabolic encephalopathy. We will continue to follow closely. Continue to improve and follow. 2. Severe protein-calorie malnutrition. He is on Clinimix and lipids. We will continue to monitor. 3. Alcohol abuse syndrome. We will continue treatment and follow. 4. Pneumonia. He is on cefepime. I am going to stop that because he is developing some diarrhea. He has completed 10 days. 5. Dystonia. I am just not entirely sure he is not having some sort of dystonic reaction. I may get Dr. Garrido to re-evaluate him and see what we can see. He is still getting intermittently confused, but I am just not sure why he is so dysfunctional. DISPOSITION: I do not anticipate discharge soon. He is probably ready for discharge; however, he has no rehabilitation resources, and right now, he cannot feed himself, he cannot get up into a chair. We are trying to work on all those things as far as strength training, and we will continue to monitor. I guess we will get an OT consult, too. cc: Pierce Wei MD
[2019-05-26] MEDS: LIPOSYN 20% 500 ML IV SCH (17:02)
[2019-05-27] MEDS: LOPRESSOR PO SCH ×4 (02:37→20:24)
[2019-05-27] MEDS: ATROVENT NEB INH SCH ×4 (03:20→21:25)
[2019-05-27] MEDS: MAXIPIME 2 GM in NS 100 ML IV SCH (04:02)
[2019-05-27] MEDS: ATIVAN IV PRN ×5 (04:02→20:31)
[2019-05-27] MEDS: MORPHINE IV PRN (05:32)
[2019-05-27] MEDS: PROTONIX PO SCH (06:13)
[2019-05-27 07:07] LABS: BASO# 0.04 X1000 (0.0-0.2); BASO% 0.4 % (0.0-0.8); EOS# 0.11 X1000 (0.0-0.7); EOS% 1.1 % (0.0-10.0); HEMATOCRIT 27.5 % (42.0-52.0); HEMOGLOBIN 8.8 g/dL (14.0-18.0); IMM GRAN# 0.04 X1000 (0.0-0.04); IMM GRAN% 0.4 % (0.0-0.5); LYMPH# 1.27 X1000 (1.2-3.4); LYMPH% 13.2 % (20.5-51.1); MCH 28.6 PG (27-31); MCV 89.3 FL (81-99); MONO# 1.08 X1000 (0.11-0.59); MONO% 11.2 % (1.7-9.3); MPV 9.6 FL (7.4-10.4); NEUT# 7.08 X1000 (1.4-6.5); NEUT% 73.7 % (42.2-75.2); PLT 526 X1000 (130-400); RBC 3.08 XMIL (4.7-6.1); RDW 13.8 % (11.5-14.5); WBC 9.62 X1000 (4.8-10.8)
[2019-05-27 07:24] LABS: PHOSPHORUS 4.8 mg/dL (2.7-4.5)
[2019-05-27 07:28] LABS: AGAP 12; BUN 44 mg/dL (8-22); CALCIUM 10.5 mg/dL (8.8-10.2); CHLORIDE 108 mmol/L (98-107); COSMO 294; CREATININE 0.7 mg/dL (0.7-1.2); ESTIMATED GFR > 60; GLUCOSE 129 mg/dL (70-104); SODIUM 141 mmol/L (136-145); TCO2 21 mmol/L (25-35)
[2019-05-27] MEDS: THERA M PLUS PO SCH (10:01)
[2019-05-27] MEDS: FOLIC ACID PO SCH (10:01)
[2019-05-27] MEDS: MEGACE LIQUID PO SCH (10:01)
[2019-05-27] MEDS: PRINIVIL PO SCH (10:01)
[2019-05-27] MEDS: CATAPRES PO SCH (10:01)
[2019-05-27] MEDS: VITAMIN B-1 PO SCH (10:01)
[2019-05-27] MEDS: TOBREX OPH SOLN RIGHT EYE SCH ×2 (10:02→20:24)
[2019-05-27] MEDS: XOPENEX NEB INH SCH ×3 (10:09→21:25)
--- NOTE | 2019-05-27 14:42 | PROGRESS NOTE ---
DATE: 05/27/2019 SUBJECTIVE: Patient has no major complaints. He got very agitated because we stopped all his antipsychotic medications, but I just do not think he can get by without them, so in any case, I am going to start Seroquel at night, maybe even consider some Aricept during the day because he is back in restraints, where he had been out of it for days. OBJECTIVE: Vital Signs: Blood pressure is 137/63, heart rate of 99, respiratory rate 20, temperature 98.5 degrees. Cardiovascular: Regular rate and rhythm. Pulmonary: Bilateral breath sounds clear to auscultation. Gastrointestinal: Soft, nontender, nondistended. Bowel sounds are positive. Extremity: No clubbing or cyanosis. Lymphatics: No peripheral edema. Neurological: Nonfocal. He is still somewhat agitated but he does redirect. LABORATORY DATA: White count is 9, hemoglobin and hematocrit 8 and 27, platelets 526,000. Basic looked okay. PROBLEM LIST: 1. Metabolic encephalopathy. At this point, I do think he has some sort of alcohol-related dementia. I am going to try some Aricept and we will try Seroquel at night and kind of see how he does, follow. 2. Severe protein-calorie malnutrition. Receiving Clinimix, lipids. He is on an appetite stimulant. At some point, we are going to have to stop his Clinimix and see if he will start eating a little bit better on his own. He can eat, there is no dysphagia, he just kind of chooses not to. 3. Pneumonia. He has completed 10 days of cefepime. I am going to stop that. 4. Questionable dystonia. Get Neurology to re-evaluate him especially since we are going to have to resume antipsychotics because I do not think we are going to get by without using them at this point, so we will continue to follow. cc: Pierce Wei MD
[2019-05-27] MEDS: ARICEPT PO SCH (15:09)
--- NOTE | 2019-05-27 15:22 | PROGRESS NOTE ---
DATE: 05/27/2019 Mr. Tijerina appeared to be sleeping as I approached the bedside. He has his head turned to the right. When he woke, he turned his head to midline, but would not turn his head to the left on my command. I was able to passively turn his head to the left with minimal resistance. Features are not typical of dystonia. He likely has significant age-related degenerative spine disease, which may be contributing to his neck stiffness. I observed him several days last week spontaneously turning head to the left and resting with head turned to the left. I do not have any new suggestion from Neurology standpoint. I agree with Dr. Wei's plans. cc: Eden Garrido III, MD
[2019-05-27] MEDS: LIPOSYN 20% 500 ML IV SCH (16:14)
[2019-05-27] MEDS: CLINIMIX E 4.25%-5% SOLUTION 1,000 ML IV SCH ×2 (18:10→18:49)
[2019-05-27] MEDS ORDERED: SEROQUEL PO SCH (21:00)
[2019-05-28] MEDS: ATIVAN IV PRN ×6 (00:39→22:14)
[2019-05-28] MEDS: LOPRESSOR PO SCH ×4 (02:39→20:12)
[2019-05-28] MEDS: ATROVENT NEB INH SCH ×4 (04:20→21:58)
[2019-05-28] MEDS: PROTONIX PO SCH (06:06)
--- NOTE | 2019-05-28 07:44 | PROGRESS NOTE ---
DATE: 05/28/2019 SUBJECTIVE: Mr. Tijerina appears comfortable, but was talking when I came in the room and seemed to be having some at least some visual hallucinations, was talking to somebody else in the room. Nobody was there. He is in four-point restraints. Nursing staff informed me this is where he has been for several days now. OBJECTIVE: Temperature 98.7 degrees, pulse 104, respirations 26, and blood pressure 155/87. Pupils are equal and round. Lungs are clear in all lung canales. Cardiovascular exam regular rhythm and rate without murmur or S3. Abdomen is soft. Skin is warm and dry. Urine output was 2800 mL. ASSESSMENT AND PLAN: 1. The patient had his head turned to the right. He did not look over to the left side. He did respond to questions, but was talking to somebody. So metabolic encephalopathy, suspect it is alcohol-related. Concerned that he may be getting possibility of Wernicke's encephalopathy with underlying cognitive deficit dementia. We are trying Seroquel and some Aricept. 2. Severe protein calorie malnutrition. He is getting Clinimix, and trying to give an appetite stimulant. The Clinimix was stopped to see if it would maybe help him start eating. I believe that was done yesterday. 3. Pneumonia. 10 days of cefepime, and that stopped. It looks like the pneumonia has resolved. 4. Questionable dystonia. We are going to resume the antipsychotics to see if we can improve his cognitive status and his encephalopathy. 5. Review of Orders. He is on Seroquel 25 mg at bedtime, metoprolol 25 mg at bedtime, Clinimix at 50 mL an hour, Aricept 5 mg p.o. every morning, folic acid 1 mg daily, ipratropium bromide 0.5 mg inhalation q.6 hours, Xopenex inhalation 1.25 mg IV q.6 hours, and lisinopril 20 mg a day. I am going to stop the Megace to see if maybe Remeron would help more with his appetite stimulation. We will stop his morphine. Continue multivitamin. He is on nicotine patch. Protonix 40 mg p.o. daily. He is on thiamine 100 mg p.o. daily. He is getting eyedrops tobramycin 0.3% to the right eye b.i.d. cc: Abdiel Pretty MD
[2019-05-28 07:46] LABS: BASO# 0.05 X1000 (0.0-0.2); BASO% 0.4 % (0.0-0.8); EOS# 0.16 X1000 (0.0-0.7); EOS% 1.4 % (0.0-10.0); HEMATOCRIT 26.5 % (42.0-52.0); HEMOGLOBIN 8.5 g/dL (14.0-18.0); IMM GRAN# 0.07 X1000 (0.0-0.04); IMM GRAN% 0.6 % (0.0-0.5); LYMPH# 1.57 X1000 (1.2-3.4); LYMPH% 13.7 % (20.5-51.1); MCH 28.9 PG (27-31); MCHC 32.1 g/dL (33-37); MCV 90.1 FL (81-99); MONO# 1.26 X1000 (0.11-0.59); MPV 9.6 FL (7.4-10.4); NEUT# 8.34 X1000 (1.4-6.5); NEUT% 72.9 % (42.2-75.2); PLT 533 X1000 (130-400); RBC 2.94 XMIL (4.7-6.1); WBC 11.45 X1000 (4.8-10.8)
[2019-05-28 07:58] LABS: AGAP 13; BUN 39 mg/dL (8-22); CALCIUM 10.2 mg/dL (8.8-10.2); CHLORIDE 105 mmol/L (98-107); COSMO 286; CREATININE 0.7 mg/dL (0.7-1.2); ESTIMATED GFR > 60; GLUCOSE 107 mg/dL (70-104); POTASSIUM 5.2 mmol/L (3.5-5.1); SODIUM 138 mmol/L (136-145); TCO2 20 mmol/L (25-35)
[2019-05-28] MEDS: CATAPRES PO SCH (08:14)
[2019-05-28] MEDS: VITAMIN B-1 PO SCH (08:14)
[2019-05-28] MEDS: ARICEPT PO SCH (08:14)
[2019-05-28] MEDS: PRINIVIL PO SCH (08:14)
[2019-05-28] MEDS: FOLIC ACID PO SCH (08:15)
[2019-05-28] MEDS: THERA M PLUS PO SCH (08:15)
[2019-05-28] MEDS: SEROQUEL PO SCH (08:34)
[2019-05-28] MEDS: TOBREX OPH SOLN RIGHT EYE SCH ×2 (08:34→20:13)
[2019-05-28] MEDS ORDERED: CALMOSEPTINE OINTMENT TOP PRN (10:27)
[2019-05-28] MEDS: XOPENEX NEB INH SCH ×3 (10:36→21:58)
[2019-05-28] MEDS: CLINIMIX E 4.25%-5% SOLUTION 1,000 ML IV SCH (14:15)
--- NOTE | 2019-05-28 16:46 | PROGRESS NOTE ---
DATE: 05/28/2019 ROOM NUMBER: [id number]. Today, the patient's and other family are present. There is clear history of baseline cognitive impairment. reports he would be forgetful even when not intoxicated. When intoxicated, speech was sometimes mumbling and hard to understand. There is not history of a definite focal neurologic problem. He has not had head or neck injury, but has complained of neck pain and stiffness, particularly after vigorous activity. There is no history suggesting torticollis or dystonia. I discussed tendency to protracted encephalopathy in patients with baseline cognitive impairment and superimposed toxic metabolic disturbance. I do not think he has dystonia. I do not think there is anything that needs to be done differently from a neurologic standpoint. I agree with current plans. Thanks for asking us to see Mr. Tijerina. cc: Eden Garrido III, MD
[2019-05-28] MEDS: LIPOSYN 20% 500 ML IV SCH (17:05)
[2019-05-28] MEDS ORDERED: REMERON PO SCH (21:00)
[2019-05-28] MEDS ORDERED: SEROQUEL PO SCH (21:00)
[2019-05-28] MEDS: TYLENOL PO PRN (21:40)
[2019-05-28] MEDS ORDERED: TYLENOL PR PRN (22:44)
[2019-05-29] MEDS: LOPRESSOR PO SCH ×3 (02:50→15:07)
[2019-05-29] MEDS: ATROVENT NEB INH SCH ×2 (03:58→09:23)
[2019-05-29] MEDS: PROTONIX PO SCH (06:18)
[2019-05-29] MEDS: XOPENEX NEB INH SCH (09:23)
[2019-05-29] MEDS: VITAMIN B-1 PO SCH (09:35)
[2019-05-29] MEDS: THERA M PLUS PO SCH (09:35)
[2019-05-29] MEDS: FOLIC ACID PO SCH (09:35)
[2019-05-29] MEDS: ARICEPT PO SCH (09:35)
[2019-05-29] MEDS: CATAPRES PO SCH (09:35)
[2019-05-29] MEDS: PRINIVIL PO SCH (09:35)
[2019-05-29] MEDS: SEROQUEL PO SCH (09:35)
[2019-05-29] MEDS: TOBREX OPH SOLN RIGHT EYE SCH (09:36)
[2019-05-29] MEDS: CLINIMIX E 4.25%-5% SOLUTION 1,000 ML IV SCH (09:38)
[2019-05-29 11:46] VITALS: BP 122/55
--- NOTE | 2019-05-29 15:01 | PROGRESS NOTE ---
DATE: 05/29/2019 Mr. Tijerina is awake and alert, much more attentive and spontaneous than yesterday. He turned his head briskly from right to midline. He tolerated passive head turning to the left without significant discomfort. I encouraged him to keep cervical positioning in mind when he is resting in one position. He and will work on passive range of motion very gently at home. I strongly encouraged him to consider complete ethanol abstinence and reports that is the plan. I do not have any other suggestion from Neurology standpoint. I will be glad to see Mr. Tijerina in the future if needed. cc: Eden Garrido III, MD
--- NOTE | 2019-05-30 13:11 | DISCHARGE SUMMARY ---
ADMISSION DATE: 04/30/2019 DISCHARGE DATE: 05/29/2019 DISCHARGE DIAGNOSES: 1. Pneumonia. 2. Urinary tract infection. 3. Protein calorie malnutrition. 4. Hypertension. 5. Alcohol abuse. 6. Dementia. HOSPITAL COURSE: Mr. Tijerina is a 63-year-old gentleman who was brought into the hospital after he had a syncopal episode. He was having generalized weakness, and he was also noted to have a patellar fracture that was treated by Dr. [facility]. He was admitted to the hospital and was treated with IV antibiotics and was provided supportive care. He had a lengthy hospital stay that was a complicated one. He has clinically improved and is stable, but he continues to have issues and is not able to live independently. After having a consultation with family, they have agreed to place the patient on [facility]. The patient will be discharged home today on [facility], and they have arranged a hospital bed as well. I discussed personally with the patient's , and she is in agreement. DISCHARGE MEDICATIONS: 1. Lorazepam 1 mg 3 times a day as needed for agitation. 2. Thiamin 100 mg orally once daily. 3. Seroquel 25 mg in the morning and 50 mg at bedtime. 4. Mirtazapine 15 mg orally once daily at bedtime. 5. Protonix 40 mg orally once daily. 6. Nicotine patch 14 mg patch once daily. 7. Multivitamins orally once daily. 8. Metoprolol 25 mg 4 times a day. 9. Lisinopril 20 mg orally once daily. 10. Folic acid 1 mg orally once daily. 11. Clonidine 0.1 mg orally once daily. 12. Donepezil 5 mg orally once daily in the morning. 13. Tylenol 650 mg every 6 hours as needed for pain and fever. FOLLOWUP: He will be followed up by the attending physician at [facility]. CONDITION: Stable. DISPOSITION: Home with [facility]osp[facility]. cc: Kate Tyson MD
== END 2019-05-29 15:08 | disposition hospice, home (50) | DRG 56 ==
LOC: P.MEDSURG 18:14 → P.ED 18:14 → OBSVTOIN 22:31 → SUATTDRO 22:31 → P.ICU 05-02 11:24 → ICU 05-03 14:04 → 2N 05-07 10:01
PROVIDERS: ATTEND Internal Medicine

== ENCOUNTER 2019-06-08 07:14 | Inpatient (IN) ==
[2019-06-08] MEDS ORDERED: NS 1,000 ML IV ONE ×3 (08:06→13:42)
[2019-06-08] MEDS ORDERED: NS 1,000 ML ONE (08:08)
[2019-06-08 08:26] LABS: BASO# 0.03 X1000 (0.0-0.2); BASO% 0.2 % (0.0-0.8); EOS# 0.01 X1000 (0.0-0.7); EOS% 0.1 % (0.0-10.0); HEMATOCRIT 30.7 % (42.0-52.0); HEMOGLOBIN 9.6 g/dL (14.0-18.0); IMM GRAN# 0.07 X1000 (0.0-0.04); IMM GRAN% 0.4 % (0.0-0.5); LYMPH# 3.97 X1000 (1.2-3.4); LYMPH% 22.7 % (20.5-51.1); MCH 27.6 PG (27-31); MCHC 31.3 g/dL (33-37); MCV 88.2 FL (81-99); MONO# 0.56 X1000 (0.11-0.59); MONO% 3.2 % (1.7-9.3); MPV 9.7 FL (7.4-10.4); NEUT# 12.86 X1000 (1.4-6.5); NEUT% 73.4 % (42.2-75.2); PLT 581 X1000 (130-400); RBC 3.48 XMIL (4.7-6.1)
[2019-06-08] MEDS ORDERED: ZOSYN 3.375 GM in NS 50 ML IV ONE (08:29)
[2019-06-08] MEDS ORDERED: VANCOMYCIN 1 GM/NS 1 GM/250 ML IVPB IV ONE ×2 (08:29→16:00)
[2019-06-08 08:33] LABS: INR 1.31; PROTIME 16.5 Seconds (11.0-16.0); PTT 26.3 Seconds (22.3-41.8)
--- NOTE | 2019-06-08 08:33 | Diag Imaging Result Doc PS360 ---
EXAM: CHEST-PORTABLE 06/08/2019 HISTORY: sob/cp TECHNIQUE: AP portable at 0825 COMMENT: The NG tube which was present on 05/17/2019 is no longer present. The lungs are slightly better expanded and there is less atelectasis in the right middle lobe. IMPRESSION: Improved atelectasis. Electronically signed by Moreno Nunn 06/08/2019 8:31 AM
[2019-06-08 08:39] LABS: ALB/GLOB RATIO 0.8; ALBUMIN 3.6 g/dL (3.5-5.0); CALCIUM 9.6 mg/dL (8.8-10.2); CREATININE 1.9 mg/dL (0.7-1.2); POTASSIUM 5.3 mmol/L (3.5-5.1); TOTAL BILIRUBIN 0.54 mg/dL (0.20-1.00)
--- NOTE | 2019-06-08 10:07 | EKG Report ---
Test Performed on : 06/08/2019 07:30:05 AM Test Reason : AMS Blood Pressure : / mmHG Vent. Rate : 160 BPM Atrial Rate : 160 BPM P-R Int : 120 ms QRS Dur : 064 ms QT Int : 298 ms P-R-T Axes : 077 052 076 degrees QTc Int : 486 ms Sinus tachycardia. Nonspecific ST and T wave abnormality Abnormal ECG No previous ECGs available Unconfirmed Result
[2019-06-08] MEDS ORDERED: DOPAMINE 400 MG/D5W 400 MG/500 ML IV.SOLN IV SCH (11:00)
[2019-06-08 11:06] LABS: URINE SOURCE CATH
--- NOTE | 2019-06-08 11:10 | PROVIDER DOCUMENTATION ---
This chart was entered by Manju Monte Scribe, acting as scribe for Sadie Estrada MD. HPI-Fever - General Chief Complaint: Altered Mental Status Stated Complaint: AMS Time Seen by Provider: 06/08/19 08:06 Source: family Allergies/Adverse Reactions: Patient Allergies Allergy/AdvReac Type Severity Reaction Status Date / Time No Known Allergies Allergy Verified 04/30/19 18:45 Home Medications: Home Medication List Medication Instructions Recorded Confirmed Last Taken Type Clonidine [Catapres] 0.1 mg PO DAILY #30 tab 05/29/19 06/08/19 Unknown Rx LISINOpril [Prinivil] 20 mg PO DAILY #30 tab 05/29/19 06/08/19 Unknown Rx Mirtazapine [Remeron] 15 mg PO QHS #30 tab 05/29/19 06/08/19 Unknown Rx Nicotine Patch [Nicoderm Patch] 14 mg TD DAILY PRN PRN patch.[id number] 05/29/19 06/08/19 Unknown Rx Quetiapine [Seroquel] 25 mg PO QAM #30 tab 05/29/19 06/08/19 Unknown Rx Quetiapine [Seroquel] 50 mg PO QHS #30 tab 05/29/19 06/08/19 Unknown Rx Ciprofloxacin HCl [Cipro] 1 tab PO BID 06/08/19 06/08/19 Unknown History Donepezil [Aricept] 5 mg PO DAILY 06/08/19 06/08/19 Unknown History Hydrocodone Bit/Acetaminophen 1 tab PO Q4H PRN 06/08/19 06/08/19 Unknown History [Hydrocodon-Acetaminophn 10-325] Lorazepam 1 mg PO Q4H PRN 06/08/19 06/08/19 Unknown History Metoprolol [Lopressor] 25 mg PO QHS 06/08/19 06/08/19 Unknown History - History of Present Illness-Fever Nature of Presenting Problem: Patient is a 63 year old male who presents to the ED via EMS with altered mental status and fever. Family states patient had a decrease in responsiveness and shortness of breath this morning. Report patient was admitted last month on 04/30/19 for pneumonia and was discharged home on 05/29/19. Family states patient was last seen normal last night. Fever Severity/Quality: reports: greater than 100.5 F (101) Onset/Duration: reports: this morning Timing: reports: still present Severity: reports: mild, moderate Context: reports: decreased mental status Recent Illness?: reports: pneumonia Associated Symptoms: reports: shortness of breath Similar Symptoms Previously?: Yes Recently seen or treated by another doctor?: Yes Review of Systems - Adult - REVIEW OF SYSTEMS - ADULT ROS:: ROS per family Constitutional: reports: see HPI, fever. denies: chills, fatique Eyes: reports: no symptoms reported Ears, Nose, Mouth & Throat: reports: no symptoms reported Cardiovascular: reports: no symptoms reported Respiratory: reports: see HPI, shortness of breath. denies: cough, wheezing Gastrointestinal: reports: no symptoms reported Genitourinary: reports: no symptoms reported Musculoskeletal: reports: no symptoms reported Integumentary: reports: no symptoms reported Neurological: reports: see HPI, other (AMS - decrease in responsiveness). denies: dizziness/vertigo, headache/migraines, numbness, syncope Psychiatric: reports: no symptoms reported Endocrine: reports: no symptoms reported Hematologic/Lymphatic: reports: no symptoms reported Allergic/Immunologic: reports: no symptoms reported All Other Systems: Reviewed and Negative Past History - Adult - PAST MEDICAL HISTORY-ADULT Review of Records: reports: Old Records Reviewed, Social history reviewed & non- contributory. Major Childhood Illnesses: reports: denies history Cardiovascular: reports: HTN Respiratory: reports: COPD Gastrointestinal: reports: denies history Obstetrical/Gynecological: reports: denies history Genitourinary: reports: denies history Musculoskeletal: reports: denies history Neurological: reports: dementia, Seizures/Epilepsy Psychiatric: reports: denies history Endocrine/Immune: reports: denies history Other Conditions: reports: denies history - PRIOR SURGERIES/PROCEDURES Surgical/Procedure History: reports: reviewed, not pertinent - IMMUNIZATION STATUS Childhood Immunizations: See Nurse Assessment Flu Vaccine: See Nurse Assessment - FAMILY HISTORY Family History: reviewed, not pertinent - SOCIAL HISTORY Smoking: cigarettes (former) Substance Use: none presently/history of abuse (history) Alcohol Use Frequency: sober (former use) Living Situation: family Physical Exam-General - PHYSICAL EXAM-ADULT Initial Vital Signs Reviewed: Yes - CONSTITUTIONAL General Appearance: other (responds to pain). negative: mild distress, lethargic - HEAD, EARS, NOSE, MOUTH & THROAT HENMT: normocephalic/atraumatic, moist mucous membranes. negative: angioedema - RESPIRATORY Respiratory: chest non-tender, lungs clear, normal breath sounds. negative: crackles, wheezing, increased rate - CARDIOVASCULAR Cardiovascular: normal peripheral pulses, regular rate, rhythm. negative: tachycardia - GASTROINTESTINAL (ABDOMEN) Abdominal Exam: normal bowel sounds, non tender, soft. negative: guarding, rebound - MUSCULOSKELETAL Extremity: other (necrotic tissue to left heel). negative: deformity, erythema - SKIN Integumentary: normal color, normal turgor, warm/dry. negative: cyanosis, erythema, jaundice - NEUROLOGIC Neurologic: other (unable to assess per patient's condition) - PSYCHIATRIC Psych/Mental Status: other (responds to pain). negative: anxious, paranoid Progress - PLAN OF CARE/RESULTS Progress/Plan/Lab Results: Vital Signs - 8 hr 06/08/19 07:29 06/08/19 07:30 06/08/19 07:31 Temperature Pulse Rate 144 H 154 H Respiratory Rate 93 H 25 H 16 Blood Pressure 113/74 O2 Sat by Pulse Oximetry 06/08/19 07:44 06/08/19 08:00 06/08/19 08:02 Temperature Pulse Rate 160 H 149 H 148 H Respiratory Rate 24 26 H 32 H Blood Pressure 113/74 56/37 O2 Sat by Pulse Oximetry 59 L 71 L 06/08/19 08:03 06/08/19 08:12 06/08/19 08:15 Temperature Pulse Rate 145 H 138 H 142 H Respiratory Rate 33 H 36 H 26 H Blood Pressure 57/43 69/37 O2 Sat by Pulse Oximetry 06/08/19 08:16 06/08/19 08:22 06/08/19 08:32 Temperature Pulse Rate 139 H 137 H 138 H Respiratory Rate 23 26 H 27 H Blood Pressure 75/48 86/53 70/59 O2 Sat by Pulse Oximetry 06/08/19 08:34 06/08/19 08:42 06/08/19 08:43 Temperature 101 F H Pulse Rate 135 H 135 H Respiratory Rate 26 H 36 H Blood Pressure 77/38 O2 Sat by Pulse Oximetry 06/08/19 08:45 06/08/19 08:47 06/08/19 09:00 Temperature Pulse Rate 136 H 137 H 133 H Respiratory Rate 34 H 32 H 32 H Blood Pressure 80/59 O2 Sat by Pulse Oximetry 06/08/19 09:03 06/08/19 09:15 06/08/19 09:16 Temperature Pulse Rate 133 H 126 H 125 H Respiratory Rate 28 H 29 H 23 Blood Pressure 64/55 76/50 O2 Sat by Pulse Oximetry 95 06/08/19 09:30 06/08/19 09:40 06/08/19 09:45 Temperature Pulse Rate 120 H 117 H 114 H Respiratory Rate 31 H 37 H 22 Blood Pressure 64/52 O2 Sat by Pulse Oximetry 06/08/19 09:46 06/08/19 10:00 06/08/19 10:02 Temperature Pulse Rate 114 H 113 H 112 H Respiratory Rate 36 H 26 H 21 Blood Pressure 110/82 72/66 O2 Sat by Pulse Oximetry 06/08/19 10:10 Temperature Pulse Rate 112 H Respiratory Rate 26 H Blood Pressure 91/54 O2 Sat by Pulse Oximetry Laboratory Results - last 24 hr 06/08/19 06/08/19 06/08/19 07:59 07:59 07:59 WBC 17.50 H RBC 3.48 L Hgb 9.6 L Hct 30.7 L MCV 88.2 MCH 27.6 MCHC 31.3 L RDW Std Deviation 15.0 H Plt Count 581 H MPV 9.7 Immature Gran % (Auto) 0.4 Neut % (Auto) 73.4 Lymph % (Auto) 22.7 [place] % (Auto) 3.2 Eos % (Auto) 0.1 Baso % (Auto) 0.2 Immature Gran # (Auto) 0.07 H Neut # (Auto) 12.86 H Lymph # (Auto) 3.97 H [place] # (Auto) 0.56 Eos # (Auto) 0.01 Baso # (Auto) 0.03 PT 16.5 H INR 1.31 PTT (Actin FS) 26.3 Sodium 135 L Potassium 5.3 H Chloride 98 Carbon Dioxide 15 L Anion Gap 22 BUN 41 H Creatinine 1.9 H Estimated GFR/1.73 m2 44 BUN/Creatinine Ratio 22 Glucose 166 H POC Glucose Calculated Osmolality 284 Calcium 9.6 Total Bilirubin 0.54 AST 16 ALT 12 Alkaline Phosphatase 109 Creatine Kinase 140 Troponin T Total Protein 8.0 Albumin 3.6 Globulin 4.4 Albumin/Globulin Ratio 0.8 Plasma Lactate Urine Source Urine Color Urine Turbidity Urine pH Ur Specific [place] Urine Protein Ur Glucose (Stick) Ur Ketones (Stick) Urine Blood Urine Nitrite Urine Bilirubin Urobilinogen Dipstick Urine Leukocytes Urine WBC (Auto) Urine RBC (Auto) U Epithel Cells (Auto) Urine Bacteria (Auto) Urine Crystals Small Round Cells Urine Casts Urine Yeast-like Cells 06/08/19 06/08/19 06/08/19 07:59 07:59 08:10 WBC RBC Hgb Hct MCV MCH MCHC RDW Std Deviation Plt Count MPV Immature Gran % (Auto) Neut % (Auto) Lymph % (Auto) [place] % (Auto) Eos % (Auto) Baso % (Auto) Immature Gran # (Auto) Neut # (Auto) Lymph # (Auto) [place] # (Auto) Eos # (Auto) Baso # (Auto) PT INR PTT (Actin FS) Sodium Potassium Chloride Carbon Dioxide Anion Gap BUN Creatinine Estimated GFR/1.73 m2 BUN/Creatinine Ratio Glucose POC Glucose 106 H Calculated Osmolality Calcium Total Bilirubin AST ALT Alkaline Phosphatase Creatine Kinase Troponin T 0.036 Total Protein Albumin Globulin Albumin/Globulin Ratio Plasma Lactate 3.4 H Urine Source Urine Color Urine Turbidity Urine pH Ur Specific [place] Urine Protein Ur Glucose (Stick) Ur Ketones (Stick) Urine Blood Urine Nitrite Urine Bilirubin Urobilinogen Dipstick Urine Leukocytes Urine WBC (Auto) Urine RBC (Auto) U Epithel Cells (Auto) Urine Bacteria (Auto) Urine Crystals Small Round Cells Urine Casts Urine Yeast-like Cells 06/08/19 06/08/19 10:14 10:54 WBC RBC Hgb Hct MCV MCH MCHC RDW Std Deviation Plt Count MPV Immature Gran % (Auto) Neut % (Auto) Lymph % (Auto) [place] % (Auto) Eos % (Auto) Baso % (Auto) Immature Gran # (Auto) Neut # (Auto) Lymph # (Auto) [place] # (Auto) Eos # (Auto) Baso # (Auto) PT INR PTT (Actin FS) Sodium Potassium Chloride Carbon Dioxide Anion Gap BUN Creatinine Estimated GFR/1.73 m2 BUN/Creatinine Ratio Glucose POC Glucose Calculated Osmolality Calcium Total Bilirubin AST ALT Alkaline Phosphatase Creatine Kinase Troponin T Total Protein Albumin Globulin Albumin/Globulin Ratio Plasma Lactate Urine Source CATH CATH Urine Color YELLOW Urine Turbidity HAZY Urine pH 6.5 Ur Specific [place] 1.022 Urine Protein 600 A Ur Glucose (Stick) TRACE Ur Ketones (Stick) NEGATIVE Urine Blood MODERATE A Urine Nitrite NEGATIVE Urine Bilirubin NEGATIVE Urobilinogen Dipstick NORMAL Urine Leukocytes MODERATE A Urine WBC (Auto) TNTC A Urine RBC (Auto) TNTC A U Epithel Cells (Auto) >10 A Urine Bacteria (Auto) NEGATIVE Urine Crystals Not Reportable Small Round Cells RENAL PRESENT Urine Casts NONE SEEN Urine Yeast-like Cells PRESENT Orders Category Date Time Status Cardiac Monitoring DIRECTED Care 06/08/19 08:08 Active Code [Resuscitation Status] Routine Care 06/08/19 08:09 Ordered CHEST-PORTABLE [RAD] Stat Exams 06/08/19 08:07 Completed BLOOD CULTURE [BLDCUL] Stat Lab 06/08/19 07:59 Results BLOOD CULTURE [BLDCUL] Stat Lab 06/08/19 08:09 Ordered CBC WITH DIFF [HEME] Stat Lab 06/08/19 07:59 Completed CK PROFILE [SP CHEM] Stat Lab 06/08/19 07:59 Completed CMP [COMPREHENSIVE METABOLIC PANEL] [CHEM] Stat Lab 06/08/19 08:06 Ordered COMPREHENSIVE METABOLIC PANEL [CHEM] Stat Lab 06/08/19 07:59 Completed LACTATE, PLASMA [CHEM] Lab 06/08/19 10:57 Ordered LACTATE, PLASMA [CHEM] Lab 06/08/19 14:15 Uncollected LACTATE, PLASMA [CHEM] Q3H Lab 06/08/19 07:59 Completed PROTIME WITH INR [COAG] Stat Lab 06/08/19 07:59 Completed PTT [COAG] Stat Lab 06/08/19 07:59 Completed TROPONIN T Stat Lab 06/08/19 07:59 Completed URINALYSIS W/POSS RFLX CULT [URINALYSIS] Stat Lab 06/08/19 10:14 Completed URINALYSIS W/POSS RFLX CULT [URINALYSIS] Stat Lab 06/08/19 10:54 Results URINE CULTURE [RM] Routine Lab 06/08/19 10:46 Received URINE MANUAL MICROSCOPIC [URINALYSIS] Stat Lab 06/08/19 10:14 Completed 0.9% Sodium Chloride Inj [Ns] 1,000 ml Med 06/08/19 08:08 Discontinued .ROUTE As directed 0.9% Sodium Chloride Inj [Ns] 1,000 ml Med 06/08/19 08:06 Discontinued IV 999 mls/hr 0.9% Sodium Chloride Inj [Ns] 1,000 ml Med 06/08/19 08:59 Discontinued IV 999 mls/hr Dopamine 400 mg/D5w Med 06/08/19 11:00 Active 400 mg in 500 ml IV As Directed mls/hr Piperacillin/Tazobactam [Zosyn] 3.375 gm Med 06/08/19 08:29 Discontinued 0.9% Sodium Chloride Inj [Ns] 50 ml IV NOW Vancomycin 1 gm/Ns Med 06/08/19 08:29 Discontinued 1 gm in 250 ml IV NOW Oxygen Device Stat Oth 06/08/19 08:08 Active EKG [EKG] Stat Ther 06/08/19 07:30 Draft Result Diagrams: 06/08/19 07:59 06/08/19 07:59 - EKG 1 Time of EKG reading by physician:: 07:30 EKG Read and Signed by:: Sadie Estrada EKG Interpretation (*Must complete 3 of following elements*): Abnormal Rate: 160 Rhythm: sinus tachycardia [place]: normal IN Interval: normal Comments: nonspecific ST and T wave abnormality. - XRAY 1 XRAY Study: Chest Impression: See EMR Report ( EXAM: CHEST-PORTABLE 06/08/2019 HISTORY: sob/cp TECHNIQUE: AP portable at 0825 COMMENT: The NG tube which was present on 05/17/2019 is no longer present. The lungs are slightly better expanded and there is less atelectasis in the right middle lobe. IMPRESSION: Improved atelectasis. Electronically signed by Moreno Nunn 06/08/2019 8:31 AM 06/08/19 0831 Interpreting Physician: Moreno Nunn MD Dictated Date/Time: 06/08/19 0830 cc: Sadie Estrada MD; None,PCP) - CONSULTS/PCP/HOSPITALIST Notification #1 *Consult/PCP/Hospitalist*: DONALD Trevizo for Hospitalist Time Discussed: 11:03 (Dr. Segovia accepted admit) Reason/Comments: Dr. Estrada consulted with Joseline about patient Consult Disposition: Will see in ED, Admit Departure - Departure Date of Disposition Decision: 06/08/19 Time of Disposition Decision: 11:04 DIAGNOSIS: Sepsis associated hypotension, COPD (chronic obstructive pulmonary disease) Disposition: ADMITTED INPATIENT 09 Certified Medical Emergency: Emergent Condition: Poor Referrals and Follow-Ups: None,PCP [Primary Care Provider] - - Critical Care Note This patient required my direct & personal management of CC.: Yes Total Time (mins): 46 Critical Care Statement: This patient required my direct personal management to treat or rule out processes, the absence of which, could potentiallly result in sudden, clinically significant life or limb threatening deterioration. Attestation - Physician/ COMPA Attestation The physician spent face to face time with patient:: Yes Advanced Practice Provider documentation review:: Supervising physician onsite and consulted in the evaluation and care of this patient. The physician did have a face to face encounter with the patient. This chart was documented by the indicated scribe, (Manju Monte Scribe) and accurately reflects the services I performed and decisions made by me, Sadie Estrada MD, as attested by the provider's signature.
[2019-06-08 11:19] LABS: COLOR YELLOW; TURBIDITY URINE HAZY (CLEAR)
[2019-06-08 11:20] LABS: BILIRUBIN URINE SMALL (NEGATIVE); BLOOD URINE MODERATE (NEGATIVE); GLUCOSE URINE 100 mg/dL (NEGATIVE); KETONE URINE TRACE mg/dL (NEGATIVE); LEUKOCYTES URINE TRACE (NEGATIVE); NITRITE URINE NEGATIVE (NEGATIVE); PROTEIN URINE 300 mg/dL (NEGATIVE); SP GRAVITY URINE 1.025; UROBILINOGEN URINE NORMAL (NORMAL)
[2019-06-08 11:22] LABS: UR EPITHELIAL CELLS >10 /HPF (<10); URINE BACTERIA NEGATIVE /HPF; URINE SMALL ROUND CELLS RENAL PRESENT
[2019-06-08 12:57] LABS: ALLEN TEST YES; BE -9.1 mmoll (-3.0-3.0); BLOOD TYPE ARTERIAL; HCO3-(ACT) 17.8 mmoll (20.0-26.0); METHB 1.3 % (0.0-1.5); O2(CT) 12.7 mL/dL (15.0-23.0); O2HB 93.3 % (95.0-99.0); PCO2(98.6) 30 mmHg (35-45); PO2(98.6) 74 mmHg (60-100); SAMPLE BLOOD; SAO2 96.1 % (95.0-100.0); THB 9.6 g/dL (11.5-17.4); pH(98.6) 7.33 (7.35-7.45)
[2019-06-08 12:58] LABS: MODALITY CANNULA
--- NOTE | 2019-06-08 13:18 | SEPSIS: TISSUE PERFUSION ASSMT ---
Sepsis: Tissue Perfusion Assmt - Physical Exam Assessment Date: 06/08/19 Time Assessment Initialized: 10:30 Vital Signs: Last Vital Signs Temp 101 F H 06/08/19 11:44 Pulse 113 H 06/08/19 12:01 Resp 24 06/08/19 12:01 BP 116/57 06/08/19 12:01 Pulse Ox 100 06/08/19 12:01 Height 6 ft Weight 63.503 kg Lung Sounds:: wheezing, diminished Heart Sounds:: Regular Capillary Refill Time: Greater Than 2 Seconds Skin Exam:: pallor - Plan Plan:: See Orders
[2019-06-08] MEDS ORDERED: VANCOMYCIN IV PER PHARMACY MISC SCH (13:42)
[2019-06-08] MEDS ORDERED: LEVOPHED 8 MG in D5 1/2 NS 250 ML IV SCH (13:42)
[2019-06-08] MEDS ORDERED: ZOFRAN IV PRN (13:42)
--- NOTE | 2019-06-08 14:52 | HISTORY AND PHYSICAL ---
PRIMARY CARE PROVIDER: None. CHIEF COMPLAINT: Per family, the patient was not responding. HISTORY OF PRESENT ILLNESS: Mr. Tijerina is a 63-year-old male who was discharged from our service on 05/29/2019 to [facility]. He was initially admitted for a syncopal episode, and found to have a patellar fracture that was treated by Dr. Mares from Orthopedics. He was also found to have pneumonia and a urinary tract infection, as well as alcoholic dementia. He had a lengthy hospital stay that was complicated. He did clinically improve, and was discharged with [facility]. Per his , he has been in his normal state of health, conversing, eating, taking his medications crushed. She stated that this a.m., she went to go fix him an egg around 5:45, then he changed his mind and said he had to use the bathroom. She was cleaning him up, rolled him back over, and she did not feel he was breathing, so she shook him a couple of times, and she felt he came around and had a faint pulse. However, since that time, he has not been responding. He was evaluated in the ED, and was found to be septic from a questionable urinary tract infection. However, it is probably coming from a wound on his right calf. He was started on broad-spectrum antibiotics, sepsis protocol with IV fluids. Family has rescinded his hospice care, and want full treatment. They made him a DO NOT RESUSCITATE level 2. They want CPR, vasopressors, but no intubation, so will admit him to the ICU. He was initially put on a dopamine drip. We will try to wean that, and place him on Levophed, and continue with broad-spectrum antibiotics. REVIEW OF SYSTEMS: Hard to obtain secondary to the patient's condition. He did move around with painful stimuli, but other than that, he does not follow commands or answer any questions. PAST MEDICAL HISTORY: 1. Recent treatment for pneumonia and urinary tract infection. 2. Alcoholic dementia. 3. COPD. 4. Hypertension. 5. Arthritis to the left hip. 6. ETOH abuse. 7. Nicotine dependency. 8. Right patellar fracture. PAST SURGICAL HISTORY: Left third digit that was work related. FAMILY HISTORY: Obtained from EMR. Mother positive for [place], diabetes, and hypertension. SOCIAL HISTORY: He was living with his in [place]. He is on hospice care. 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 He drinks 1 pint of alcohol per day, 2 packs of cigarettes per day. No illicit drug use. ALLERGIES: No known drug allergies. MEDICATIONS: Home medications are being verified. PHYSICAL EXAMINATION: VITAL SIGNS: Temperature is 101 degrees, heart rate 111, respirations 25, blood pressure was 85/45, O2 is 100% on Ventimask. HEENT: Atraumatic, normocephalic. PERRL. NECK: Supple. Trachea midline. CARDIOVASCULAR: S1, S2 appreciated. No murmurs, gallops, rubs noted. RESPIRATORY: Lung sounds, scattered rhonchi throughout all lung canales. GASTROINTESTINAL: Appeared to be nontender, soft. Hypoactive bowel sounds. LOWER EXTREMITIES: He does have eschar noted to his right heel, as well as an oozing wound to his right calf, and a brace on his right leg. No lower extremity edema. NEUROLOGIC: The patient does somewhat respond to painful stimuli. He does not answer questions or follow any commands. LABORATORY DATA: White count 17, hemoglobin and hematocrit 9 and 30, platelet count is 581,000. Sodium 135, potassium 5.3, BUN 41, creatinine 1.9, blood glucose is 166. Troponin 0.036. Plasma lactate 3.4. Urinalysis negative for bacteria, negative for nitrates, 10 to 20 WBCs. ASSESSMENT AND PLAN: 1. Sepsis. We have obtained blood cultures, urine culture. There is questionable urinary tract infection. However, he does have an oozing spot coming from his right calf that we will culture. Will continue on broad-spectrum antibiotics. He received 2.5 liters of fluid, and was placed on a dopamine drip. We will try to wean that, and place him on Levophed, and continue with broad-spectrum antibiotics and intravenous fluids. 2. Altered mental status since this morning. Unsure if due to sepsis or if the patient is actively dying. Will discuss with Dr. Segovia if we need to do a head CT. Will continue with frequent neurologic checks. Per the , he has not been drinking any alcohol. 3. Acute kidney injury. Will continue with intravenous hydration. Recheck morning labs. 4. Probable wound infection on his right calf. We will culture. Consult Wound Care. 5. Hypertension, now hypotensive on dopamine. Will hold home medications for now. 6. Hypokalemia. We will recheck his potassium after intravenous fluids. 7. Recent patellar fracture. The patient remains in a brace. 8. Nicotine dependence. The patient is currently wearing a nicotine patch. 9. Code status. DO NOT RESUSCITATE level 2. Family requests that the patient not be intubated. They do want vasopressors as well as cardiopulmonary resuscitation if his heart were to stop. We will consult [facility] as well as Palliative Care for continued conversations of goals of care. Family is aware that he may be in the process of actively dying. However, they want to continue with all medical care for now. Further recommendations to follow physician evaluation, laboratory and diagnostic data. Dictated by DONALD Sethi for Ozzie Segovia MD cc: Ozzie Segovia MD I agree with most components of history, physical, assessment and plan. A separate addendum has been dictated. MTDD
--- NOTE | 2019-06-08 15:10 | Diag Imaging Result Doc PS360 ---
EXAM: CT HEAD W/O CONTRAST 06/08/2019 HISTORY: encephalopathy, Rule out RIght MCA CVA TECHNIQUE: This exam was performed using automated exposure control, adjustment of mA or kV according to patient size, and/or use of iterative reconstruction technique. COMMENT: There are calcifications in the globus pallidus bilaterally. There is no evidence of mass effect, bleed, or abnormal extra-axial fluid collection. Compared to 05/11/2019 the appearance of the brain has not changed appreciably. There is some motion artifact. The visualized paranasal sinuses are clear. The calvarium is intact. IMPRESSION: No evidence of acute intracranial disease. Electronically signed by Moreno Nunn 06/08/2019 3:08 PM
[2019-06-08] MEDS: ZOSYN 3.375 GM in NS 50 ML IV SCH ×2 (15:34→20:33)
--- NOTE | 2019-06-08 19:43 | Diag Imaging Result Doc PS360 ---
EXAM: FOOT 2 VIEWS RIGHT - 06/08/2019 HISTORY: Rule out osteomyelitis TECHNIQUE: Portable right foot two views COMPARISON: None. FINDINGS: There deformities of the distal second third metatarsal which may relate to old fracture deformities. There is no indication of recent fracture or dislocation. There are no erosive or destructive changes identified. There is some sclerosis noted in the distal tibia which may relate to prior bone infarct. IMPRESSION: No visible acute bony abnormality. No indication of osteomyelitis. Please note that early osteomyelitis can be radiographically occult. Electronically signed by Uzair Grissom 06/08/2019 7:41 PM
[2019-06-08 20:10] LABS: CALCIUM 8.1 mg/dL (8.8-10.2); CREATININE 1.6 mg/dL (0.7-1.2); POTASSIUM 4.5 mmol/L (3.5-5.1)
--- NOTE | 2019-06-08 21:51 | HISTORY AND PHYSICAL ---
ADDENDUM: I agree with most components of history, physical, assessment, and plan. In brief, Mr. 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 Apparently, the patient in the morning time had suddenly started becoming less responsive and according to one of the daughters, he had for a second stopped breathing and so EMS was called. The patient was brought to the hospital. In the emergency room he was found to be tachycardic on presentation with a heart rate of 144 and blood pressure 70/40, so he was started on intravenous fluids, intravenous dopamine and the hospitalist team was consulted for further management. At the time of my evaluation, patient is sleepy. He is occasionally moaning and groaning. Does not answer any questions. One of the patient's daughters is at bedside. The patient's is not available to provide meaningful history at the moment. VITALS: Temperature of 100.5 degrees, pulse of 105, respiratory rate 25. His blood pressure is 115/50. He is saturating 99% on 40% Venturi mask. PHYSICAL EXAMINATION: His pupils are bilateral pinpoint, not reactive. Oral cavity has some gurgling sounds. LUNGS: Air entry bilaterally equal. No wheeze, rhonchi, crackles. CARDIOVASCULAR: S1, S2 normal. Tachycardic. No murmur or gallop. ABDOMEN: Soft, nontender. His right lower extremity has pressure ulcer about 4 x 4 cm, which appears ischemic and necrotic. He also has a wound in the posterior lower calf draining, about stage III, with pussy material coming out. He has urine catheter. NEUROLOGIC: He is lethargic. However, he tries to withdraw to painful stimuli all extremities. However, his responses are more pronounced on the right than left. LABS: Suggestive of leukocytosis. Normal hemoglobin. Thrombocytosis. He does, on ABG, have metabolic acidosis. His BMP suggests acute kidney injury, hyponatremia, hyperkalemia. He has pyuria, hematuria. Microbiology, blood culture, urine culture and culture from his right posterior lower calf are pending. IMAGING: His chest x-ray had improved atelectasis. Head CT was unremarkable for any acute intracranial process. ASSESSMENT AND PLAN: 1. Septic shock. Sources could be urinary tract infection, versus right lower extremity infected pressure ulcer. 2. Acute encephalopathy in the setting of septic shock and baseline dementia. PLAN: I will start the patient on norepinephrine and slowly taper of dopamine. I will continue him on intravenous vancomycin, Zosyn, intravenous fluids and follow up culture data. I will also get x-ray of the right foot to see whether he has any changes of acute osteomyelitis. CODE STATUS DISCUSSION: The patient's daughter present at the bedside states that she had already signed papers to revoke hospice. She would not want him to go on ventilator. However, she was okay with chest compression. I explained to her about the fact that in cardiopulmonary resuscitation, chest compressions and intubations both would be required and if initially the goal was hospice care, chest compressions should also be avoided. However, she is uncertain at the moment and she wanted to talk with her mother. For now, the code status is DNR level 2. So, we will avoid intubation and ventilator until the patient's comes by and I hold discussion. TIME SPENT: More than 30 minutes of critical care time was spent in taking care of this patient. cc: Ozzie Segovia MD
[2019-06-09] MEDS: NS 1,000 ML IV SCH ×3 (00:32→17:48)
[2019-06-09] MEDS: ZOSYN 3.375 GM in NS 50 ML IV SCH (02:58)
[2019-06-09 06:42] LABS: ESTIMATED GFR > 60
[2019-06-09 06:49] LABS: AGAP 17; ALB/GLOB RATIO 0.7; ALBUMIN 2.9 g/dL (3.5-5.0); ALKALINE PHOSPHATASE 97 U/L (32-122); BUN 33 mg/dL (8-22); CALCIUM 8.3 mg/dL (8.8-10.2); CHLORIDE 107 mmol/L (98-107); COSMO 286; CREATININE 1.3 mg/dL (0.7-1.2); GLUCOSE 116 mg/dL (70-104); GOT 12 U/L (10-34); GPT 8 U/L (10-44); MAGNESIUM 1.3 mg/dL (1.5-2.7); POTASSIUM 3.9 mmol/L (3.5-5.1); SODIUM 139 mmol/L (136-145); TCO2 15 mmol/L (25-35); TOTAL BILIRUBIN 0.38 mg/dL (0.20-1.00); TOTAL PROTEIN 6.8 g/dL (6.3-8.3)
[2019-06-09 06:51] LABS: BASO# 0.04 X1000 (0.0-0.2); BASO% 0.1 % (0.0-0.8); EOS# 0.08 X1000 (0.0-0.7); EOS% 0.2 % (0.0-10.0); HEMATOCRIT 23.9 % (42.0-52.0); HEMOGLOBIN 7.6 g/dL (14.0-18.0); IMM GRAN# 0.17 X1000 (0.0-0.04); IMM GRAN% 0.5 % (0.0-0.5); LYMPH# 1.12 X1000 (1.2-3.4); LYMPH% 3.5 % (20.5-51.1); MCH 27.8 PG (27-31); MCHC 31.8 g/dL (33-37); MCV 87.5 FL (81-99); MONO# 1.86 X1000 (0.11-0.59); MONO% 5.8 % (1.7-9.3); MPV 9.5 FL (7.4-10.4); NEUT# 28.74 X1000 (1.4-6.5); NEUT% 89.9 % (42.2-75.2); PLT 412 X1000 (130-400); RBC 2.73 XMIL (4.7-6.1); RDW 14.9 % (11.5-14.5); WBC 32.01 X1000 (4.8-10.8)
[2019-06-09] MEDS ORDERED: MAGNESIUM SULFATE 2 GM/S.W.I. 2 GM/50 ML IVPB IV ONE (07:14)
--- NOTE | 2019-06-09 07:19 | Diag Imaging Result Doc PS360 ---
EXAM: CHEST-PORTABLE INDICATION: sepsis TECHNIQUE: One view COMPARISON: 06/08/2019 FINDINGS: The patient is rotated toward the right. There is increased atelectasis at the right lung base as compared to the previous study. No other new consolidation is identified. Cardiac silhouette is stable. IMPRESSION: Increased right basilar atelectasis. Stable chest, otherwise. Electronically signed by Jerod Sin 06/09/2019 7:16 AM
[2019-06-09 07:40] LABS: ALLEN TEST NO; BE -7.4 mmoll (-3.0-3.0); BLOOD TYPE ARTERIAL; HCO3-(ACT) 19.2 mmoll (20.0-26.0); METHB 1.6 % (0.0-1.5); O2(CT) 14.5 mL/dL (15.0-23.0); O2HB 97.1 % (95.0-99.0); PCO2(98.6) 28 mmHg (35-45); PO2(98.6) 192 mmHg (60-100); SAMPLE BLOOD; THB 10.3 g/dL (11.5-17.4); pH(98.6) 7.38 (7.35-7.45)
[2019-06-09 07:41] LABS: MODALITY VENTIMASK
[2019-06-09 08:01] LABS: BANDS 3 % (0-1); LYMPHS 2 % (21-51); MONO 1 % (1-9); SEGS 94 % (42-75)
[2019-06-09] MEDS: MAXIPIME 1 GM in NS 50 ML IV SCH ×2 (08:15→20:09)
[2019-06-09] MEDS: SODIUM CHLORIDE 0.9% INJ SCH (08:16)
[2019-06-09] MEDS: PROTONIX IV SCH (08:16)
[2019-06-09] MEDS: HEPARIN SUBQ SCH ×2 (08:16→20:09)
--- NOTE | 2019-06-09 10:43 | Diag Imaging Result Doc PS360 ---
EXAM: CT THORAX W/O CONTRAST 06/09/2019 HISTORY: pneumonia TECHNIQUE: This exam was performed using automated exposure control, adjustment of mA or kV according to patient size, and/or use of iterative reconstruction technique. COMMENT: There is some patchy opacity in the right lower lobe inferiorly which appears to have improved slightly since the previous study of 05/16/2019. There is a small amount of right pleural fluid. Otherwise are has been no appreciable change in the appearance of the lungs. There is extensive coronary calcification. There are multiple old rib fractures. The blood pool is hypodense measuring only 19 Hounsfield units consistent with anemia. The mediastinum is otherwise unchanged in appearance since the previous study. The regional skeleton is stable in appearance. IMPRESSION: Small right pleural effusion. Improved atelectasis versus pneumonia right lower lobe. Anemia. Electronically signed by Moreno Nunn 06/09/2019 10:41 AM
[2019-06-09] MEDS: SANTYL OINT TOP SCH (16:00)
[2019-06-09] MEDS ORDERED: OFIRMEV 1000 MG/ISOTONIC SOLN 1,000 MG/100 ML BOTTLE IV PRN (17:00)
--- NOTE | 2019-06-09 20:58 | PROGRESS NOTE ---
DATE: 06/09/2019 SUBJECTIVE: The patient is lethargic this morning. He is noted to still be on a Levophed drip, and he is tachycardic. OBJECTIVE: Vital Signs: Temperature 100.8, blood pressure 128/65, heart rate 110, respirations 24. O2 saturation 97% on 3 L nasal cannula. Intake 4.4 L, output 1.6 L. General: This is a chronically ill-appearing elderly male lying in bed in no acute distress. Heart: S1, S2 normal. Tachycardic. Lungs: Coarse breath sounds. Abdomen: Positive bowel sounds. Soft, nontender, nondistended. Extremities: The patient has a wound on the lateral aspect of his right calf. He also has deep tissue injury to the right heel that appears black with an eschar on it. Neurologic: The patient is lethargic. He does respond to painful stimuli. LABS: White blood cell count 32, hemoglobin 7.6, hematocrit 23, platelets 412. Sodium 139, potassium 3.9, chloride 107, CO2 15, BUN 33, creatinine 1.3, glucose 116, magnesium 1.3. ASSESSMENT AND PLAN: 1. Acute hypoxemic respiratory failure. Likely secondary to underlying pneumonia. We will continue with broad-spectrum antibiotics, bronchodilator therapy and supplemental oxygen. 2. Septic shock. We will follow up the blood culture. Continue with broad- spectrum antibiotics and fluids. 3. Pneumonia. The patient is on broad-spectrum antibiotic therapy. 4. Right leg wound. Continue with wound care. 5. Acute kidney injury. Slowly improving. Continue with IV fluids. Will decrease the rate. 6. Hypomagnesemia. We will replace the patient's magnesium. 7. Suspected peripheral arterial disease. We will check arterial Dopplers. 8. Metabolic acidosis. We will continue to monitor the patient's acid-base status closely. The patient is currently on IV fluids. 9. Dementia. Aware. 10. Nutrition. We will order a swallow evaluation on the patient. For now, he will remain n.p.o. 11. Gastrointestinal prophylaxis. Continue on Protonix. 12. Deep vein thrombosis prophylaxis. Will start the patient on heparin. 13. Disposition. The patient is critically ill with a high risk of mortality. He is currently a Do Not Resuscitate level 2. cc: MD LASHAWN Crowe
--- NOTE | 2019-06-09 21:57 | GENERAL SURGERY CONSULTATION ---
DATE: 06/09/2019 REQUESTING PHYSICIAN: Hospitalist. REASON FOR CONSULTATION: Right leg wound. HISTORY OF PRESENT ILLNESS: A 63-year-old male who is admitted on 06/08 for being unresponsive. He is at [facility]. He had been in his normal state and had been found unresponsive. He was brought to the emergency department. He has a new wound to his right leg. I was asked to evaluate for this. It is on the lateral aspect of this right leg. The patient is somewhat altered and cannot give any further information. He is currently being treated on aggressive IV antibiotics. I was asked to weigh an opinion. PAST MEDICAL HISTORY: 1. Recent pneumonia. 2. Recent urinary tract infection. 3. Alcoholic dementia. 4. COPD. 5. Hypertension. 6. Arthritis left hip. 7. Alcohol abuse. 8. Nicotine dependence. 9. History of right patellar fracture. PAST SURGICAL HISTORY: Includes previous injury to his left 3rd digit. FAMILY HISTORY: Positive for NC, diabetes, hypertension. REVIEW OF SYSTEMS: Difficult to obtain secondary to patient's mental status. SOCIAL: On hospice care. ALLERGIES: None. HOME MEDICATIONS: In MAR and reviewed. PHYSICAL EXAMINATION: Vital Signs: Patient is currently afebrile. Current pulse 117, blood pressure 126/87, O2 saturation 100%. General: Exam alert, somewhat confused male, looks stated age. HEENT: Normocephalic, atraumatic. Pupils equal, round, reactive to light. Mucous membranes moist. Oropharynx benign. Neck: Supple. Trachea midline. Cardiovascular: Some tachycardia. Lungs: Grossly clear. Abdomen: Soft, nontender, nondistended. Extremities: Wound to right leg lateral aspect extending down through the deep tissue. No exposed bone. No active drainage. No slough. Wound is appears hard. Neurologic: Somewhat confused. Skin: Wound as noted above. Vascular: All extremities appear to be perfused. LABORATORY: White blood count 32, hematocrit 23, platelet count 412,000. Remainder of labs reviewed. Imaging reviewed. ASSESSMENT AND PLAN: A 63-year-old with multiple medical comorbidities and septic shock with a right leg wound. 1. Right leg wound. At this time, I do not suspect this right lower extremity wound is the source of it. Microbiology has not show anything. Recommend continued antibiotics and continue local wound care with Vashe and Santyl and monitor how the wound does. 2. Septic shock. At this time he is being managed by the hospitalist. I appreciate the consult. I will continue to follow with you. cc: Kodi Adkins MD
[2019-06-10] MEDS ORDERED: VANCOMYCIN 1,500 MG in NS 250 ML IV SCH (04:00)
[2019-06-10] MEDS: PROTONIX IV SCH (06:31)
[2019-06-10] MEDS: MAXIPIME 1 GM in NS 50 ML IV SCH ×2 (06:32→18:35)
[2019-06-10 07:04] LABS: BASO# 0.05 X1000 (0.0-0.2); BASO% 0.2 % (0.0-0.8); EOS# 0.28 X1000 (0.0-0.7); HEMATOCRIT 24.6 % (42.0-52.0); HEMOGLOBIN 7.6 g/dL (14.0-18.0); IMM GRAN# 0.16 X1000 (0.0-0.04); IMM GRAN% 0.6 % (0.0-0.5); LYMPH# 1.76 X1000 (1.2-3.4); LYMPH% 6.5 % (20.5-51.1); MCH 27.5 PG (27-31); MCHC 30.9 g/dL (33-37); MCV 89.1 FL (81-99); MONO# 1.59 X1000 (0.11-0.59); MONO% 5.9 % (1.7-9.3); MPV 10.2 FL (7.4-10.4); NEUT# 23.08 X1000 (1.4-6.5); NEUT% 85.8 % (42.2-75.2); PLT 403 X1000 (130-400); RBC 2.76 XMIL (4.7-6.1); WBC 26.92 X1000 (4.8-10.8)
[2019-06-10] MEDS ORDERED: CARDIZEM IV ONE ×2 (07:19→17:57)
[2019-06-10] MEDS ORDERED: ATIVAN PO PRN (07:35)
[2019-06-10] MEDS ORDERED: MAGNESIUM SULFATE 2 GM/S.W.I. 2 GM/50 ML IVPB IV ONE (07:36)
[2019-06-10 07:38] LABS: AGAP 17; ALBUMIN 2.8 g/dL (3.5-5.0); BUN 25 mg/dL (8-22); CHLORIDE 114 mmol/L (98-107); COSMO 298; CREATININE 0.7 mg/dL (0.7-1.2); ESTIMATED GFR > 60; GLUCOSE 80 mg/dL (70-104); PHOSPHORUS 3.1 mg/dL (2.7-4.5); POTASSIUM 4.2 mmol/L (3.5-5.1); SODIUM 148 mmol/L (136-145); TCO2 17 mmol/L (25-35)
[2019-06-10 07:40] LABS: BANDS 2 % (0-1); LYMPHS 4 % (21-51); MONO 2 % (1-9); SEGS 92 % (42-75)
[2019-06-10 08:27] LABS: PROTIME 15.9 Seconds (11.0-16.0)
[2019-06-10 08:28] LABS: INR 1.25
[2019-06-10] MEDS: D5W 1,000 ML IV SCH ×2 (08:43→22:08)
[2019-06-10] MEDS: ARICEPT PO SCH (08:44)
[2019-06-10] MEDS: SEROQUEL PO SCH ×2 (08:44→20:26)
[2019-06-10] MEDS: HEPARIN SUBQ SCH ×2 (08:45→20:25)
[2019-06-10] MEDS: SANTYL OINT TOP SCH (08:46)
[2019-06-10] MEDS ORDERED: NS 250 ML ONE (10:02)
[2019-06-10] MEDS ORDERED: ATIVAN IV ONE (12:31)
--- NOTE | 2019-06-10 16:13 | PROGRESS NOTE ---
DATE: 06/10/2019 SUBJECTIVE: The patient is currently in wrist restraints because he is very impulsive. He is oriented to person and place, but has periods of confusion. OBJECTIVE: Vital Signs: Temperature 98.2 degrees, blood pressure 149/78, heart rate 110, respirations 22, O2 saturation is 100% on room air. General: This is a chronically ill- appearing, elderly male lying in bed, in no acute distress. Heart: S1, S2. Normal. Tachycardic. Lungs: Equal air entry bilaterally. No wheezing. No rales. Abdomen: Positive bowel sounds. Soft, nontender, nondistended. Extremities: The patient has a black eschar on his right heel. His peripheral pulses are not palpable. He also has a wound on his right calf. Neurologic: The patient is oriented to person and place. LABS: White blood cell count 26, hemoglobin 7.6, hematocrit 24, platelets 403,000. INR 1.2. Sodium 148, potassium 4.2, chloride 114, CO2 17, BUN 25, creatinine 0.5, glucose 80. ASSESSMENT AND PLAN: 1. Acute hypoxemic respiratory failure. Improved. 2. Pneumonia. Continue with antibiotic therapy. 3. Septic shock. Resolved. 4. Right leg wound. Continue with wound care. 5. Acute kidney injury. Resolved. 6. Hypernatremia. Will start the patient on D5W. 7. Suspected peripheral arterial disease. We will await the results of the arterial Doppler study. 8. Metabolic acidosis. Will monitor closely. 9. Dementia. Aware. 10. Nutrition. We will start the patient on a full liquid diet and advance as tolerated. 11. Anemia. Check iron studies. 12. Hypertension. Restart oral medication. 13. Gastrointestinal prophylaxis. Continue on Protonix. 14. Deep vein thrombosis prophylaxis. Continue on heparin. 15. Disposition. The patient is critically ill with a high risk of mortality. The patient is currently a DNR level 2. cc: Mayra Machado MD [facility]
[2019-06-10] MEDS: ATIVAN IV PRN (18:09)
[2019-06-10] MEDS: REMERON PO SCH (20:27)
[2019-06-10] MEDS ORDERED: LOPRESSOR PO SCH (21:00)
[2019-06-10] MEDS: VANCOMYCIN 1,500 MG in NS 250 ML IV SCH (21:56)
[2019-06-11] MEDS: ATIVAN IV PRN ×2 (00:27→23:00)
[2019-06-11 05:53] LABS: BASO# 0.04 X1000 (0.0-0.2); BASO% 0.2 % (0.0-0.8); EOS# 0.25 X1000 (0.0-0.7); EOS% 1.3 % (0.0-10.0); HEMATOCRIT 23.1 % (42.0-52.0); HEMOGLOBIN 7.2 g/dL (14.0-18.0); IMM GRAN% 0.5 % (0.0-0.5); LYMPH% 9.6 % (20.5-51.1); MCH 27.4 PG (27-31); MCHC 31.2 g/dL (33-37); MCV 87.8 FL (81-99); MONO# 1.64 X1000 (0.11-0.59); MONO% 8.3 % (1.7-9.3); MPV 9.8 FL (7.4-10.4); NEUT# 15.84 X1000 (1.4-6.5); NEUT% 80.1 % (42.2-75.2); PLT 396 X1000 (130-400); RBC 2.63 XMIL (4.7-6.1); RDW 14.9 % (11.5-14.5); WBC 19.77 X1000 (4.8-10.8)
[2019-06-11 06:26] LABS: AGAP 12; ALBUMIN 2.8 g/dL (3.5-5.0); BUN 11 mg/dL (8-22); CALCIUM 8.7 mg/dL (8.8-10.2); CHLORIDE 110 mmol/L (98-107); COSMO 283; CREATININE 0.7 mg/dL (0.7-1.2); ESTIMATED GFR > 60; GLUCOSE 113 mg/dL (70-104); POTASSIUM 2.9 mmol/L (3.5-5.1); SODIUM 142 mmol/L (136-145); TCO2 20 mmol/L (25-35)
[2019-06-11] MEDS ORDERED: POTASSIUM CHLORIDE 60 MEQ in NS 500 ML IV ONE (06:28)
[2019-06-11] MEDS: PROTONIX IV SCH (06:39)
[2019-06-11] MEDS: MAXIPIME 1 GM in NS 50 ML IV SCH ×2 (06:39→19:26)
[2019-06-11] MEDS ORDERED: MAGNESIUM SULFATE 2 GM/S.W.I. 2 GM/50 ML IVPB IV ONE (07:38)
[2019-06-11] MEDS: HEPARIN SUBQ SCH ×2 (09:24→20:53)
[2019-06-11] MEDS: SANTYL OINT TOP SCH (09:24)
[2019-06-11] MEDS: SEROQUEL PO SCH ×2 (09:24→20:53)
[2019-06-11] MEDS: LOPRESSOR PO SCH ×2 (09:24→20:53)
[2019-06-11] MEDS: ARICEPT PO SCH (09:24)
--- NOTE | 2019-06-11 09:51 | Diag Imaging Result Doc PS360 ---
EXAM: CHEST-PORTABLE 06/11/2019 HISTORY: pneumonia TECHNIQUE: AP portable at 0900 COMMENT: There are calcified right hilar lymph nodes. The mediastinum is shifted to the right as it was on 06/09/2019. This is worse than on 06/08/2019. There is some opacity in the retrocardiac portion of the right lower lobe. IMPRESSION: Atelectasis versus pneumonia right lower lobe with shift of the mediastinum to the right. Electronically signed by Moreno Nunn 06/11/2019 9:48 AM
[2019-06-11] MEDS ORDERED: CALMOSEPTINE OINTMENT TOP PRN (10:12)
[2019-06-11] MEDS: D5W 1,000 ML IV SCH (10:35)
--- NOTE | 2019-06-11 10:41 | GENERAL SURGERY PROGRESS NOTE ---
DATE: 06/11/2019 Discussed the case with the nurse. The patient seems to be doing a little bit better agitation- murphy. Dressing is intact right now. Overall, looks about the same. At this point, will continue local wound care monitoring. Wound culture does show gram-positive cocci, but this may be purely natural spenser of his skin. Will continue local wound care. cc: Kodi Adkins MD
--- NOTE | 2019-06-11 11:41 | VASCULAR LAB ---
PROCEDURE NAME: Arterial Bilateral Legs - 06/09/2019 DATE OF STUDY: 06/09/2019. REQUESTING PHYSICIAN: DR. Machado MEDICAL CODING INSTRUCTOR: Ruiz. INDICATIONS: Decreased pulses right foot. FINDINGS: Segmental pressures are as follows: Right brachial 151, left 158. Right proximal thigh 121, left 196. Right distal thigh 199, left 200. Right popliteal 75, left 127, right dorsalis pedis 52, left 100, right posterior tibial 0, left 98, right great toe not measured, left not measured. Right RUBA 0.33. Left 0.63. Waveform analysis: Waveforms appear to be intact to the level of the ankle bilaterally. There is some blunting noted on the right side from the calf distally. There are no waveforms noted to either great toe. INTERPRETATION: Bilateral peripheral vascular disease is noted to be severe on the right, and at least moderate on the left. The patient's disease may be superficial femoral artery disease on the right but could even be more proximal. Given these findings, the patient has a low likelihood of wound healing. He would benefit from a CT angiography to delineate the anatomy better. cc: MD Mayra Sibley MD
--- NOTE | 2019-06-11 13:45 | PROGRESS NOTE ---
DATE: 06/11/2019 SUBJECTIVE: The patient is currently resting. He is currently in wrist restraints due to impulsivity. OBJECTIVE: Vital Signs: Temperature 98.2 degrees, blood pressure 139/73, heart rate 103, respirations 20, O2 saturation is 100% on room air. General: This is a chronically ill- appearing, elderly male, lying in bed in no acute distress. Heart: S1, S2 normal. Regular rate and rhythm. Lungs: Equal air entry bilaterally. No wheezing. No rales. Abdomen: Positive bowel sounds. Soft, nontender, nondistended. Neurologic: The patient is oriented to self. He is able to move all 4 extremities. Labs: White blood cell count 19, hemoglobin 7.2, hematocrit 23, platelets 396,000. Sodium 142, potassium 2.9, chloride 110, CO2 of 20, BUN 11, creatinine 0.7, glucose 113, magnesium 1.3. ASSESSMENT AND PLAN: 1. Acute hypoxemic respiratory failure. The patient is currently on room air. 2. Pneumonia. Continue with antibiotic therapy. 3. Hypertension. We will adjust the patient's antihypertensive regimen. 4. Septic shock. Resolved. 5. Right leg wound. Continue with wound care. 6. Suspected peripheral arterial disease. The arterial Dopplers reveal that the patient does have bilateral peripheral vascular disease. Further management as per the general surgeon. 7. Dementia with behavioral disturbance. Continue on Seroquel and as needed Ativan. 8. Nutrition. We will advance the patient to a heart healthy diet. 9. Anemia. We will continue to monitor closely. 10. Hypokalemia. We will replace the patient's potassium. 11. Gastrointestinal prophylaxis. Continue on Protonix. 12. Deep vein thrombosis prophylaxis. Continue on heparin. 13. Disposition. The patient is currently a Do Not Resuscitate level 2. We will transfer the patient to [facility]. cc: Mayra Machado MD [facility]
[2019-06-11] MEDS: NORCO-5 PO PRN (16:49)
[2019-06-11] MEDS: VANCOMYCIN 1,500 MG in NS 250 ML IV SCH (17:18)
[2019-06-11] MEDS: REMERON PO SCH (20:53)
[2019-06-12 06:27] LABS: BASO# 0.03 X1000 (0.0-0.2); BASO% 0.2 % (0.0-0.8); EOS# 0.18 X1000 (0.0-0.7); EOS% 1.3 % (0.0-10.0); HEMATOCRIT 23.3 % (42.0-52.0); HEMOGLOBIN 7.3 g/dL (14.0-18.0); IMM GRAN# 0.09 X1000 (0.0-0.04); IMM GRAN% 0.6 % (0.0-0.5); LYMPH# 2.25 X1000 (1.2-3.4); MCH 27.2 PG (27-31); MCHC 31.3 g/dL (33-37); MCV 86.9 FL (81-99); MONO# 1.42 X1000 (0.11-0.59); MONO% 10.1 % (1.7-9.3); MPV 9.7 FL (7.4-10.4); NEUT# 10.07 X1000 (1.4-6.5); NEUT% 71.8 % (42.2-75.2); PLT 421 X1000 (130-400); RBC 2.68 XMIL (4.7-6.1); WBC 14.04 X1000 (4.8-10.8)
[2019-06-12] MEDS ORDERED: MAGNESIUM SULFATE 4 GM/S.W.I. 4 GM/100 ML IVPB IV ONE (06:34)
[2019-06-12 06:39] LABS: IRON SATURATION 16 %; TIBC 161 ug/dL; TOTAL IRON 25 ug/dL (53-167); UNBOUND IRON 136 ug/dL (112-346)
[2019-06-12 06:48] LABS: AGAP 14; ALBUMIN 2.5 g/dL (3.5-5.0); BUN 8 mg/dL (8-22); CALCIUM 8.9 mg/dL (8.8-10.2); CHLORIDE 105 mmol/L (98-107); COSMO 273; CREATININE 0.7 mg/dL (0.7-1.2); ESTIMATED GFR > 60; GLUCOSE 106 mg/dL (70-104); PHOSPHORUS 2.8 mg/dL (2.7-4.5); POTASSIUM 3.6 mmol/L (3.5-5.1); SODIUM 137 mmol/L (136-145); TCO2 18 mmol/L (25-35)
--- NOTE | 2019-06-12 06:58 | GENERAL SURGERY PROGRESS NOTE ---
DATE: 06/12/2019 Patient moved out of the ICU. Reviewed and dictated his lower extremity arterial study. It suggests at least a superficial femoral artery disease if not more proximal. It is likely going to interfere with his ability to heal his wound. Given this, we will plan on doing a CT angiography to delineate the anatomy better. Otherwise, continue local wound care on his wounds. cc: Kodi Adkins MD
[2019-06-12 07:15] LABS: FERRITIN 695 ng/mL (30-400)
--- NOTE | 2019-06-12 07:38 | Diag Imaging Result Doc PS360 ---
EXAM: CHEST-PORTABLE 06/12/2019 HISTORY: pneumonia TECHNIQUE: AP portable at 0540 COMMENT: There is a right-sided PICC line with its tip just above the right atrium. The patient is rotated to the right. There is atelectasis over the right base. This was not as notable on the previous study of 06/11/2019, otherwise there has been no significant change. IMPRESSION: Right lower lobe atelectasis. Electronically signed by Moreno Nunn 06/12/2019 7:36 AM
[2019-06-12 07:53] LABS: BANDS 4 % (0-1); EOS 2 % (1-10); LYMPHS 10 % (21-51); MONO 1 % (1-9); SEGS 81 % (42-75)
[2019-06-12 07:54] LABS: LARGE PLATELETS 2+
[2019-06-12] MEDS: ARICEPT PO SCH (08:48)
[2019-06-12] MEDS: LOPRESSOR PO SCH ×2 (08:48→20:30)
[2019-06-12] MEDS: MAXIPIME 1 GM in NS 50 ML IV SCH ×2 (08:48→20:30)
[2019-06-12] MEDS: PROTONIX IV SCH (08:48)
[2019-06-12] MEDS: SEROQUEL PO SCH ×2 (08:48→20:31)
[2019-06-12] MEDS: HEPARIN SUBQ SCH ×2 (08:48→20:30)
[2019-06-12] MEDS: SANTYL OINT TOP SCH (09:19)
[2019-06-12] MEDS: VENOFER 200 MG in NS 150 ML IV SCH (09:57)
[2019-06-12] MEDS: NS 1,000 ML IV SCH ×2 (09:57→23:25)
--- NOTE | 2019-06-12 10:02 | Diag Imaging Result Doc PS360 ---
EXAM: CT ANGIOGRAM AORTA W/RUNOFF 06/12/2019 HISTORY: suspected Right SFA or proximal disease TECHNIQUE: This exam was performed using automated exposure control, adjustment of mA or kV according to patient size, and/or use of iterative reconstruction technique. COMMENT: 3-D MIPS were performed. There are no previous studies. There are atelectatic or fibrotic appearing opacities in both lung bases. This is particularly in the posterior costophrenic sulcus of the right lower lobe. This is similar in appearance to the previous thoracic study of 06/09/2019. There are calcifications at the ostia of the celiac and superior mesenteric arteries. There are also ostial calcifications in the renal arteries bilaterally. There are duplicated renal arteries bilaterally with a smaller accessory right renal artery to the lower pole. There is an apparent ulcerated plaque in the common iliac artery on the left. There are irregular calcific and noncalcified plaques in both common iliac arteries. There is plaque throughout both superficial femoral arteries with occlusion of the distal right superficial femoral at the level of the adductor canal. This is reconstituted within a centimeter. Both popliteal arteries contain calcific and noncalcified plaque but there is no evidence of occlusion. There is occlusion of the right tibial peroneal trunk just below takeoff of the anterior tibial artery. There are calcified and noncalcified plaques in the small vessels distally with occlusion of both the peroneal and posterior tibial arteries and reconstitution. There is some apparent flow in both vessels to the ankle. On the left side, there is also occlusion of the tibial peroneal trunk and proximal posterior tibial and peroneal vessels which are rapidly reconstituted. There is very poor flow in the posterior tibial although there is some contrast in the distal vessel at the level of the ankle. In addition to the arterial findings described above, there are apparent filling defects in both common femoral veins which presumably represents thrombi. There is suboptimal opacification of the venous blood pool however and further evaluation with ultrasonography may be desirable. There are some prominent periaortic nodes below the level of the renal vessels. There is fluid in the distal colon and rectum. There are some prominent mesenteric nodes. There is marked mucosal thickening in the urinary bladder. There is a Poole catheter in the bladder. There is a right inguinal hernia into which some loops of small bowel slightly protrude. There are prominent inguinal nodes bilaterally. IMPRESSION: 1. Deep venous thrombosis in the right common femoral vein. 2. Severe atherosclerotic changes in the superficial femoral and popliteal arteries, with short segment occlusion of the distal right superficial femoral artery, and with occlusive changes in the calf vessels as described above. 3. Severe urinary cystitis. The findings were discussed with Kodi Adkins MD at 06/12/2019 10:00 AM. Electronically signed by Moreno Nunn 06/12/2019 10:00 AM
[2019-06-12] MEDS: VANCOMYCIN 1,500 MG in NS 250 ML IV SCH (10:36)
--- NOTE | 2019-06-12 14:18 | PROGRESS NOTE ---
DATE: 06/12/2019 SUBJECTIVE: The patient is resting comfortably in bed. He remains in wrist restraints because he is impulsive and is a high fall risk. OBJECTIVE: Vital Signs: Temperature 98.8 degrees, blood pressure 131/74, heart rate 108, respirations 22, O2 saturation 95% on room air. Intake 1.3 L, output 2.8 L. General: This is a chronically ill-appearing, elderly male, lying in bed in no acute distress. Heart: S1, S2 normal. Tachycardic. Lungs: Equal air entry bilaterally. No wheezing. No rales. Abdomen: Positive bowel sounds. Soft, nontender, nondistended. Extremities: No edema. No cyanosis. The patient has an ulceration on his right calf as well as dark eschar on his right heel. Neurologic: The patient is oriented to person and place but does have periods of confusion. He is able to move all 4 extremities. LABORATORY DATA: White blood cell count 14, hemoglobin 7.3, hematocrit 23, platelets 421,000. Sodium 137, potassium 3.6, chloride 105, CO2 18, BUN 8, creatinine 0.7, glucose 106, magnesium 1.1. IMAGING: CT angiogram of the aorta with runoff revealed no DVT in the right common femoral vein. Severe atherosclerotic changes in the superficial femoral and popliteal arteries with short- segment occlusion of the distal right superficial femoral artery and occlusive changes in the calf vessels. ASSESSMENT AND PLAN: 1. Acute hypoxemic respiratory failure. Resolved. 2. Pneumonia. Slowly improving. Continue with antibiotic therapy. 3. Right leg infection secondary to Staphylococcus epidermidis and Acinetobacter. Continue with the current antibiotic regimen as well as wound care. 4. Severe peripheral arterial disease. The CT angiogram done of the aorta with runoff today revealed severe PAD and a possible right common femoral vein DVT. A stat venous ultrasound was done that showed no evidence of DVT. General Surgery is following for possible surgical intervention. 5. Dementia with behavioral disturbance. Continue on Seroquel. 6. Iron deficiency anemia. The patient has been started on iron supplementation. 7. Hypomagnesemia. We will replace the patient's magnesium. 8. Hypertension. Controlled. Continue on the current antihypertensive regimen. 9. Gastrointestinal prophylaxis. Continue on Protonix. 10. Deep vein thrombosis prophylaxis. Continue on heparin. 11. Disposition. The patient is a DNR level 2. cc: Mayra Machado MD [facility]
--- NOTE | 2019-06-12 15:57 | CONSULTATION ---
DATE OF CONSULTATION: 06/12/2019 HISTORY OF PRESENT ILLNESS: Mr. Tijerina was discharged home a few weeks ago after lengthy hospitalization. Neurology followed him during that time. According to attentive sister at the bedside now, his mental status was not significantly changed over his 10 days at home prior to admission 4 days ago. He was awake, alert, carrying on appropriate conversation at home. She reports he had a period of restless agitation earlier this admission. He was somnolent for a day or so and may be a little bit better today. She is certain that he did not resume ethanol ingestion during that short time at home between hospitalizations. The patient confirms he has not used ethanol recently. There is not history of recent head injury. There was never any focal neurologic feature to recent mental status changes. Workup here includes noncontrast CT showing old changes, but nothing focal or acute, nothing really remarkable. No change compared to scan done last month. Chemistry showed initial elevated BUN and creatinine which have been corrected. He has had some mildly elevated blood sugars. Calcium was 8.1 on admission and has been corrected. We do not have urine drug screen on presentation. Other medical problems include possible sepsis on presentation, pneumonia according to sister, oozing right calf. On exam, Mr. Tijerina is resting comfortably with head turned to the right. When I called his name, he opened his eyes, looked to me on his left, turned his eyes to the left, turned his head to midline. When I asked him to turn his head more toward the left, he did so without apparent discomfort. There is no meningismus. He has symmetric limb tone. He used his hands purposefully. Facial motility is a little bit diminished bilaterally, but symmetric. Tongue is midline. Extraocular movements are full without significant nystagmus. IMPRESSION: Global encephalopathy. 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 Alcohol consumption, intoxication, withdrawal will always be a concern whenever he has more than his baseline encephalopathy, but there is apparently no history to support any of that now. I do not have any urgent suggestion from Neurology standpoint. Based on my review of records this admission, I believe his mental status is little bit improved today. I encouraged him to continue ethanol abstinence and to be aggressive with following instructions here. Thanks for asking Neurology to see Mr. Tijerina. cc: Eden Garrido III, MD MTDD
[2019-06-12] MEDS: REMERON PO SCH (20:31)
[2019-06-12] MEDS: ATIVAN IV PRN (22:47)
[2019-06-13] MEDS ORDERED: ATIVAN IV ONE (01:22)
[2019-06-13] MEDS: NS 1,000 ML IV SCH (01:38)
[2019-06-13] MEDS: VANCOMYCIN 1,500 MG in NS 250 ML IV SCH ×2 (05:24→23:08)
[2019-06-13 06:58] LABS: BASO# 0.04 X1000 (0.0-0.2); BASO% 0.3 % (0.0-0.8); EOS# 0.22 X1000 (0.0-0.7); EOS% 1.6 % (0.0-10.0); HEMATOCRIT 21.1 % (42.0-52.0); HEMOGLOBIN 6.7 g/dL (14.0-18.0); IMM GRAN# 0.15 X1000 (0.0-0.04); IMM GRAN% 1.1 % (0.0-0.5); LYMPH# 2.48 X1000 (1.2-3.4); LYMPH% 17.9 % (20.5-51.1); MCH 27.8 PG (27-31); MCHC 31.8 g/dL (33-37); MCV 87.6 FL (81-99); MONO# 1.77 X1000 (0.11-0.59); MONO% 12.8 % (1.7-9.3); MPV 9.9 FL (7.4-10.4); NEUT# 9.17 X1000 (1.4-6.5); NEUT% 66.3 % (42.2-75.2); PLT 357 X1000 (130-400); RBC 2.41 XMIL (4.7-6.1); RDW 15.3 % (11.5-14.5); WBC 13.83 X1000 (4.8-10.8)
[2019-06-13 07:20] LABS: AGAP 12; ALBUMIN 2.6 g/dL (3.5-5.0); BUN 10 mg/dL (8-22); CALCIUM 8.5 mg/dL (8.8-10.2); CHLORIDE 104 mmol/L (98-107); COSMO 270; CREATININE 0.8 mg/dL (0.7-1.2); ESTIMATED GFR > 60; GLUCOSE 116 mg/dL (70-104); PHOSPHORUS 2.6 mg/dL (2.7-4.5); POTASSIUM 3.4 mmol/L (3.5-5.1); SODIUM 135 mmol/L (136-145); TCO2 19 mmol/L (25-35)
[2019-06-13 07:36] LABS: EOS 2 % (1-10); LYMPHS 24 % (21-51); SEGS 70 % (42-75)
[2019-06-13] MEDS: PROTONIX IV SCH (08:51)
[2019-06-13] MEDS: SANTYL OINT TOP SCH (08:51)
[2019-06-13] MEDS: SEROQUEL PO SCH ×2 (08:51→21:34)
[2019-06-13] MEDS: ARICEPT PO SCH (08:51)
[2019-06-13] MEDS: MAXIPIME 1 GM in NS 50 ML IV SCH ×2 (08:51→21:21)
[2019-06-13] MEDS: LOPRESSOR PO SCH ×2 (09:48→21:21)
[2019-06-13] MEDS: MAG-OX PO SCH (09:48)
[2019-06-13] MEDS: VENOFER 200 MG in NS 150 ML IV SCH (09:48)
[2019-06-13] MEDS: HEPARIN SUBQ SCH ×2 (09:48→21:21)
[2019-06-13] MEDS ORDERED: KLOR-CON PO ONE (10:21)
[2019-06-13] MEDS ORDERED: MAGNESIUM SULFATE 2 GM/S.W.I. 2 GM/50 ML IVPB IV ONE ×2 (10:21→16:32)
[2019-06-13] MEDS: NS 500 ML IV ONE ×2 (13:00→17:47)
--- NOTE | 2019-06-13 13:12 | GENERAL SURGERY PROGRESS NOTE ---
DATE: 06/13/2019 SUBJECTIVE: The patient has no new complaints. OBJECTIVE: Vital signs: He is afebrile. Vital signs are stable. General: He is awake, alert, oriented x3. No acute distress. Extremities: The left leg wound is examined. It is pink. No foul drainage or odor. LABORATORY: White blood cell count 13.8, hemoglobin 6.7, hematocrit 21. IMAGING: CT angiogram revealed severe occlusive and stenotic disease of the superficial femoral and popliteal artery on the right. ASSESSMENT AND PLAN: A 63-year-old male with peripheral arterial disease and right leg ulcer. We will continue with his local wound care. Dr. Adkins will address any operative intervention for his arterial stenosis and occlusion next week. cc: Marito Cottrell MD
--- NOTE | 2019-06-13 17:00 | PROGRESS NOTE ---
DATE: 06/13/2019 SUBJECTIVE: The patient is resting comfortably in bed. His family is present at the bedside. The patient is no longer in wrist restraints. He has no complaints. OBJECTIVE: Vital Signs: Temperature 98.4, blood pressure 139/74, heart rate 106, respirations 20, O2 saturation 99% on room air. General: This is a chronically ill- appearing elderly male, lying in bed in no acute distress. Heart: S1, S2 normal. Tachycardic. Lungs: Equal air entry bilaterally. No wheezing. No rales. No rhonchi. Abdomen: Positive bowel sounds. Soft, nontender, nondistended. Extremities: The patient has a wound on his right calf. No drainage noted. There is also an eschar on the right heel. Neurologic: The patient is awake and alert. He is oriented to person and place. LABS: White blood cell count 13, hemoglobin 6.7, hematocrit 21, platelets 357. Sodium 135, potassium 3.4, chloride 104, CO2 19. BUN 10, creatinine 0.8, glucose 116, magnesium 1.5, phosphorus 2.6. ASSESSMENT AND PLAN: 1. Acute hypoxemic respiratory failure. Resolved. 2. Pneumonia. Continue with antibiotic therapy. 3. Severe peripheral arterial disease. Management as per the general surgeon. 4. Severe iron deficiency anemia. The patient will receive 2 units of packed red blood cells today. 5. Dementia with behavioral disturbance. Stable. Continue to monitor closely. 6. Right leg infection secondary to Staphylococcus epidermidis, Acinetobacter. Continue with antibiotic therapy and wound care. We will also consult with Infectious Disease. 7. Hypertension. Continue on the current antihypertensive regimen. 8. Hypomagnesemia. We will replace the patient's magnesium. 9. Deep vein thrombosis prophylaxis. Continue on heparin. 10. Gastrointestinal prophylaxis. Continue on Protonix. 11. Continue with physical therapy. cc: MD LASHAWN Crowe
[2019-06-13] MEDS: REMERON PO SCH (21:21)
[2019-06-13] MEDS: ATIVAN IV PRN (21:35)
[2019-06-14] MEDS: ATIVAN IV PRN (01:11)
[2019-06-14] MEDS: SODIUM CHLORIDE 0.9% INJ SCH (06:40)
[2019-06-14] MEDS: PROTONIX IV SCH (06:40)
[2019-06-14 06:41] LABS: BASO# 0.06 X1000 (0.0-0.2); BASO% 0.4 % (0.0-0.8); EOS# 0.25 X1000 (0.0-0.7); EOS% 1.7 % (0.0-10.0); HEMATOCRIT 28.2 % (42.0-52.0); HEMOGLOBIN 9.2 g/dL (14.0-18.0); IMM GRAN# 0.18 X1000 (0.0-0.04); IMM GRAN% 1.2 % (0.0-0.5); LYMPH# 2.33 X1000 (1.2-3.4); LYMPH% 15.5 % (20.5-51.1); MCH 28.3 PG (27-31); MCHC 32.6 g/dL (33-37); MCV 86.8 FL (81-99); MONO# 1.72 X1000 (0.11-0.59); MONO% 11.4 % (1.7-9.3); MPV 9.5 FL (7.4-10.4); NEUT# 10.52 X1000 (1.4-6.5); NEUT% 69.8 % (42.2-75.2); PLT 375 X1000 (130-400); RBC 3.25 XMIL (4.7-6.1); RDW 14.7 % (11.5-14.5); WBC 15.06 X1000 (4.8-10.8)
[2019-06-14 06:53] LABS: AGAP 14; BUN 12 mg/dL (8-22); CALCIUM 8.9 mg/dL (8.8-10.2); CHLORIDE 108 mmol/L (98-107); COSMO 281; CREATININE 0.8 mg/dL (0.7-1.2); ESTIMATED GFR > 60; GLUCOSE 95 mg/dL (70-104); MAGNESIUM 1.5 mg/dL (1.5-2.7); PHOSPHORUS 2.1 mg/dL (2.7-4.5); POTASSIUM 3.9 mmol/L (3.5-5.1); SODIUM 141 mmol/L (136-145); TCO2 19 mmol/L (25-35)
[2019-06-14 07:11] LABS: EOS 1 % (1-10); LYMPHS 16 % (21-51); MONO 9 % (1-9); SEGS 74 % (42-75)
[2019-06-14] MEDS ORDERED: MAGNESIUM SULFATE 2 GM/S.W.I. 2 GM/50 ML IVPB IV ONE (08:00)
[2019-06-14] MEDS: ARICEPT PO SCH (09:10)
[2019-06-14] MEDS: LOPRESSOR PO SCH ×2 (09:10→21:43)
[2019-06-14] MEDS: HEPARIN SUBQ SCH ×2 (09:10→21:42)
[2019-06-14] MEDS: VENOFER 200 MG in NS 150 ML IV SCH (09:10)
[2019-06-14] MEDS: MAXIPIME 1 GM in NS 50 ML IV SCH (09:11)
[2019-06-14] MEDS: SANTYL OINT TOP SCH (09:11)
[2019-06-14] MEDS ORDERED: CATHFLO IV ONE (09:42)
[2019-06-14] MEDS ORDERED: STERILE WATER INJ. INJ ONE (09:42)
[2019-06-14] MEDS: SEROQUEL PO SCH ×2 (09:56→21:43)
[2019-06-14] MEDS: MAG-OX PO SCH (09:56)
--- NOTE | 2019-06-14 10:43 | PROGRESS NOTE ---
DATE: 06/14/2019 SUBJECTIVE: The patient is resting comfortably in bed. His family is present at the bedside. He is currently eating breakfast. OBJECTIVE: Vital Signs: Temperature 98.7 degrees, blood pressure 153/81, heart rate 101, respirations 18, O2 saturations 99% on room air. General: This is a chronically ill-appearing elderly male, lying in bed, in no acute distress. Heart: S1, S2 normal. Tachycardic. Lungs: Equal air entry bilaterally. No wheezing. No rales. Abdomen: Positive bowel sounds. Soft, nontender, nondistended. Extremities: No edema, no cyanosis. The patient has a wound on his right calf. He also has an eschar on his right heel. Neurologic: The patient is alert and oriented x3. LABS: White blood cell count 15, hemoglobin 9.2, hematocrit 28, platelets 375,000. Sodium 141, potassium 3.9, chloride 108, CO2 19, creatinine 0.8 ASSESSMENT AND PLAN: 1. Respiratory failure. Resolved. 2. Pneumonia. Continue with antibiotic therapy as directed by Dr. Workman. 3. Right leg infection secondary to Staphylococcus epidermidis and Acinetobacter. Continue with antibiotic and wound care. 4. Severe peripheral arterial disease. Management as per the general surgeon. 5. Severe iron deficiency anemia. Improved. The patient received 2 units of packed red blood cells yesterday. 6. Dementia with behavioral disturbance. Stable. 7. Hypertension. Continue on the current antihypertensive regimen. 8. Leukocytosis. The patient's antibiotic therapy has been adjusted. Monitor for improvement. 9. Deep vein thrombosis prophylaxis. Continue on heparin. cc: Mayra Machado MD MTDD
--- NOTE | 2019-06-14 11:27 | INFECTIOUS DISEASE CONSULT REP ---
DATE: 06/14/2019 CONCLUSION: I have been asked to see the patient for a right leg infection. In both groin areas, there is a pustular rash. It is larger in the right groin rather than the left groin. The patient also has an open wound on the right lower leg. It actually looks pretty clean, and finally, the patient on the right heel has an eschar. The patient also has a right lower lobe pneumonia versus atelectasis. The patient's white count is increasing despite being on vancomycin and cefepime. The patient does have yeast in the urine. I think this is asymptomatic. RECOMMENDATIONS: I have discontinued vancomycin and cefepime and have put the patient on Septra. I have ordered for the patient to have CBCs for the next 3 days, and for tomorrow, I have ordered a BMP. I do not think the patient requires antifungal therapy for the yeast that was found in the patient's urine. I think it is asymptomatic. DISCUSSION: The patient was unable to provide a history. It was mainly taken from data in the computer and also from the patient's sister. The sister told me that the patient fell and fractured his leg, and he was wearing a large splint. He has developed in the groin area a pustular rash, which as mentioned above, is larger than the left groin area. Also on the right leg, there is an open wound, but it is not red or purulent. And finally, the patient has a large eschar on the right heel. The patient's CT scan showed right lower lobe versus atelectasis. According to the patient's sister, the patient may have had a seizure when he was brought in to the emergency room unresponsive. The patient's CBC shows a white blood cell count of 15,060, hemoglobin 9.2, and platelet count 375,000. Creatinine is 0.8, GFR is greater than 60. The patient's right leg culture grew Staphylococcus epidermidis and Acinetobacter. The patient's urine is growing yeast. The patient's CBC shows a white count of 15,060, hemoglobin 9.2, and platelet count 375,000. Creatinine 0.8, GFR is greater than 60. Urine culture grew yeast. Right leg culture grew Staphylococcus epidermidis and Acinetobacter. Stool for Clostridium difficile antigen and toxin was negative. CT scan shows right lower lobe pneumonia and/or atelectasis. PAST MEDICAL HISTORY AND REVIEW OF SYSTEMS: Eyes and ears: The patient hears and sees okay. Neck: No stiffness. Respiratory: No cough or shortness of breath. Cardiac: No chest pain or palpitations. GI: No nausea, vomiting or diarrhea. : No dysuria. Neurologic: The patient denied having a seizure. PREVIOUS HOSPITALIZATIONS AND OPERATIONS: The patient earlier in May was in [facility]. He was discharged home on hospice care. He was found to have a fracture of the patella, and also he was found to have pneumonia, a urinary tract infection and alcoholic dementia. MEDICAL DISEASES: Positive for hypertension, alcoholism, dementia, cigarette smoking, malnutrition, and possible seizure. INFECTIOUS DISEASE HISTORY: Positive for pneumonia and urinary tract infection. FAMILY HISTORY: Positive for diabetes mellitus, hypertension, myocardial infarction, and cancer. SOCIAL HISTORY: [place] He is . He smokes cigarettes. He is an alcoholic. 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 He does not abuse drugs. ALLERGIES: His chart lists no known drug allergies. HOME MEDICATIONS: Ciprofloxacin, clonidine, Aricept, hydrocodone, lisinopril, Lopressor, Remeron, nicotine patch, and Seroquel. PHYSICAL EXAMINATION: Vital Signs: Temperature is 98.7 degrees, pulse 101, respirations 18, blood pressure 153/81. Patient weighs 143 pounds. General: This is a chronically ill and malnourished-appearing, middle-aged male. He is in no acute distress. Head/eyes/ears/nose/throat: He can hear my spoken words and see near objects. He has very poor oral hygiene. I did not see any white patches on his tongue. Neck: No meningismus. Lungs: Clear to auscultation. Cardiovascular: Regular heart rate. Abdomen: Soft and nontender. Extremities: The patient's right heel has a black dry eschar on it. On the lower part of the leg, there is an open wound. It is not purulent, and it is not erythematous. In the groin, there is a pustular rash more prominent on the right side than the left. Neurologic: The patient is lethargic. He did answer questions. He did move his extremities to request. There was no tremor. His memory regarding his medical history was decreased. Thank you for the consult. cc: Dima Workman MD
[2019-06-14] MEDS: SEPTRA DS PO SCH (16:45)
[2019-06-14] MEDS: REMERON PO SCH (21:43)
[2019-06-15] MEDS: SEPTRA DS PO SCH ×2 (05:28→22:30)
[2019-06-15] MEDS: PROTONIX IV SCH ×2 (05:28→08:32)
[2019-06-15] MEDS: SODIUM CHLORIDE 0.9% INJ SCH (05:28)
[2019-06-15 06:13] LABS: BASO# 0.06 X1000 (0.0-0.2); BASO% 0.4 % (0.0-0.8); EOS# 0.28 X1000 (0.0-0.7); EOS% 1.9 % (0.0-10.0); HEMATOCRIT 29.7 % (42.0-52.0); HEMOGLOBIN 9.5 g/dL (14.0-18.0); IMM GRAN# 0.14 X1000 (0.0-0.04); IMM GRAN% 0.9 % (0.0-0.5); LYMPH# 2.61 X1000 (1.2-3.4); LYMPH% 17.3 % (20.5-51.1); MCH 28.1 PG (27-31); MCV 87.9 FL (81-99); MONO# 1.77 X1000 (0.11-0.59); MONO% 11.7 % (1.7-9.3); MPV 9.5 FL (7.4-10.4); NEUT# 10.27 X1000 (1.4-6.5); NEUT% 67.8 % (42.2-75.2); PLT 396 X1000 (130-400); RBC 3.38 XMIL (4.7-6.1); RDW 14.9 % (11.5-14.5); WBC 15.13 X1000 (4.8-10.8)
[2019-06-15 06:26] LABS: AGAP 9; CHLORIDE 105 mmol/L (98-107); POTASSIUM 4.8 mmol/L (3.5-5.1); SODIUM 140 mmol/L (136-145); TCO2 26 mmol/L (25-35)
[2019-06-15 06:27] LABS: BUN 14 mg/dL (8-22); CALCIUM 9.4 mg/dL (8.8-10.2); COSMO 280; ESTIMATED GFR > 60; GLUCOSE 97 mg/dL (70-104); MAGNESIUM 1.5 mg/dL (1.5-2.7)
[2019-06-15] MEDS ORDERED: MAGNESIUM SULFATE 4 GM/S.W.I. 4 GM/100 ML IVPB IV ONE (06:34)
--- NOTE | 2019-06-15 06:45 | GENERAL SURGERY PROGRESS NOTE ---
DATE: 06/15/2019 SUBJECTIVE: Patient is about the same per the nursing staff. He is resting comfortably right now. OBJECTIVE: Vital Signs: Patient is currently afebrile. His vital signs are stable. General: Resting. Cardiovascular: Regular rate and rhythm. Lungs: Grossly clear. Abdomen: Soft and nontender. Extremities: Wounds are about the same. IMAGING: Reviewed. CTA looks like there is a distal superficial femoral artery disease which may be amenable to percutaneous stenting. ASSESSMENT AND PLAN: A 63-year-old gentleman with bilateral wounds with significant peripheral vascular disease on the right. Bilateral lower extremity wounds with peripheral vascular disease. At this time, could potentially intervene on his vasculature, but I think the patient's mental status is somewhat prohibitive. We will need to have a discussion with the hospitalist about how well he would tolerate any kind of major intervention. In the meantime, continue local wound care. cc: Kodi Adkins MD
[2019-06-15] MEDS: MAG-OX PO SCH (08:35)
[2019-06-15] MEDS: ARICEPT PO SCH (08:35)
[2019-06-15] MEDS: SEROQUEL PO SCH ×2 (08:36→22:30)
[2019-06-15] MEDS: LOPRESSOR PO SCH ×2 (08:36→22:29)
[2019-06-15] MEDS: VENOFER 200 MG in NS 150 ML IV SCH (08:36)
[2019-06-15] MEDS: SANTYL OINT TOP SCH (08:37)
[2019-06-15] MEDS: HEPARIN SUBQ SCH ×2 (09:00→22:29)
[2019-06-15 10:03] LABS: BANDS 2 % (0-1); BASO 3 % (0-1); EOS 1 % (1-10); LYMPHS 13 % (21-51); MONO 4 % (1-9)
[2019-06-15 10:04] LABS: LARGE PLATELETS 2+; SEGS 70 % (42-75)
--- NOTE | 2019-06-15 16:06 | INFECTIOUS DISEASE PROGRESS NO ---
DATE: 06/15/2019 PRESENT ILLNESS: The patient has infection in both groin areas and in the distal part of the right leg. The whole bone the organisms that have thus far been isolated causing the infection are Staph epidermidis and Acinetobacter. Patient may have a right lower lobe pneumonia versus atelectasis. MEDICATION: The patient is on PO Septra. PHYSICAL EXAMINATION: Vital Signs: Temperature is 99 degrees, pulse 99, respirations 19, blood pressure 139/71. General: This is an ill-appearing middle-aged male. He is in no acute distress. Head, eyes, ears, nose, and throat: Can hear my spoken words and see near objects. He has very poor oral hygiene. There is not any white coating on his tongue. Neck: No stiffness. Lungs: Clear to auscultation. Cardiovascular: Heart rate is regular. Abdomen: Soft and nontender. In both groin areas there is a pustular rash which is clearing. Extremities: The patient's right heel has a black eschar on it and there is an open wound on the right leg between the knee and the ankle. The wound is not red or purulent. Neurologic: The patient is lethargic. He can move his extremities. There is no tremor. LAB AND RADIOLOGY: CBC-WBC 15.13, hgb 9.5, platelets 396K. Creatinine-1. GFR- >60. No new radiographic study today. ASSESSMENT AND PLAN: The patient also may have a right lower lobe pneumonia versus atelectasis. Patient has infection of his both groin areas and his leg. He may have a pneumonia. I am going to continue with Septra. COMORBIDITIES: Include alcoholism, dementia, cigarette smoking, malnutrition and possible seizure. cc: Dima Workman MD [facility]
--- NOTE | 2019-06-15 17:25 | PROGRESS NOTE ---
DATE: 06/15/2019 SUBJECTIVE: The patient is resting comfortably in bed. He does have periods of confusion and agitation at night. During the day when his family is present he is calm and follows directions. OBJECTIVE: Vital Signs: Temperature 99 degrees, blood pressure 139/71, heart rate 99, respirations 19, O2 saturation 99% on room air. General: This is a chronically ill-appearing male lying in bed in no acute distress. Heart: S1, S2 normal. Regular rate and rhythm. Lungs: Equal air entry bilaterally. No wheezing, no rales, no rhonchi. Abdomen: Positive bowel sounds. Soft, nontender, nondistended. Extremities: No edema, no cyanosis. Neurologic: The patient is alert and oriented x2. LABS: White blood cell count 15, hemoglobin 9.5, hematocrit 29, platelets 396,000. Sodium 140, potassium 4.8, BUN 14, creatinine 1, glucose 97, magnesium 1.5. ASSESSMENT AND PLAN: 1. Respiratory failure. Resolved. 2. Pneumonia. Continue with antibiotic therapy as directed by Dr. Workman. 3. Right leg infection secondary to Staphylococcus epidermidis and Acinetobacter. Continue with antibiotic and wound care. 4. Severe peripheral arterial disease. Will continue to monitor closely. General Surgery is following. 5. Severe iron deficiency anemia. Stable. 6. Hypertension controlled. Continue on the current antihypertensive regimen. 7. Dementia with behavioral disturbance. Stable. Continue on Seroquel and Aricept. 8. Hypomagnesemia. Will replace the patient's magnesium. 9. Groin infection. Continue with antibiotic therapy. 10. Leukocytosis. Continue to monitor for improvement. The patient is currently on Bactrim. 11. Deep vein thrombosis prophylaxis. Continue on heparin. 12. Continue with physical therapy. cc: Mayra Machado MD [facility]
[2019-06-15] MEDS: REMERON PO SCH (22:30)
[2019-06-16] MEDS: ATIVAN IV PRN ×2 (00:35→04:04)
[2019-06-16] MEDS: PROTONIX IV SCH (06:14)
[2019-06-16 06:40] LABS: BASO# 0.04 X1000 (0.0-0.2); BASO% 0.2 % (0.0-0.8); EOS# 0.26 X1000 (0.0-0.7); EOS% 1.6 % (0.0-10.0); HEMATOCRIT 30.3 % (42.0-52.0); HEMOGLOBIN 9.6 g/dL (14.0-18.0); IMM GRAN# 0.12 X1000 (0.0-0.04); IMM GRAN% 0.7 % (0.0-0.5); LYMPH# 2.39 X1000 (1.2-3.4); LYMPH% 14.3 % (20.5-51.1); MCH 28.2 PG (27-31); MCHC 31.7 g/dL (33-37); MCV 88.9 FL (81-99); MONO% 9.6 % (1.7-9.3); MPV 9.3 FL (7.4-10.4); NEUT# 12.34 X1000 (1.4-6.5); NEUT% 73.6 % (42.2-75.2); PLT 440 X1000 (130-400); RBC 3.41 XMIL (4.7-6.1); RDW 15.2 % (11.5-14.5); WBC 16.75 X1000 (4.8-10.8)
[2019-06-16 06:59] LABS: AGAP 12; BUN 10 mg/dL (8-22); CALCIUM 9.7 mg/dL (8.8-10.2); CHLORIDE 101 mmol/L (98-107); COSMO 275; CREATININE 1.1 mg/dL (0.7-1.2); ESTIMATED GFR > 60; GLUCOSE 95 mg/dL (70-104); MAGNESIUM 1.7 mg/dL (1.5-2.7); POTASSIUM 3.7 mmol/L (3.5-5.1); SODIUM 138 mmol/L (136-145); TCO2 25 mmol/L (25-35)
[2019-06-16 08:02] LABS: BANDS 4 % (0-1); EOS 3 % (1-10); LYMPHS 27 % (21-51); MONO 4 % (1-9); SEGS 60 % (42-75)
[2019-06-16] MEDS: ARICEPT PO SCH (09:38)
[2019-06-16] MEDS: MAG-OX PO SCH (09:38)
[2019-06-16] MEDS: SANTYL OINT TOP SCH (09:38)
[2019-06-16] MEDS: SEPTRA DS PO SCH ×2 (09:38→20:31)
[2019-06-16] MEDS: LOPRESSOR PO SCH ×2 (09:38→20:31)
[2019-06-16] MEDS: HEPARIN SUBQ SCH ×2 (09:38→20:31)
[2019-06-16] MEDS: SEROQUEL PO SCH ×2 (09:38→20:31)
--- NOTE | 2019-06-16 09:55 | PROGRESS NOTE ---
DATE: 06/16/2019 SUBJECTIVE: This is a 63-year-old with past medical history of alcohol-related dementia, poor functional status, essential hypertension, recently admitted and discharged in May of this year, a 1 month long course where he was treated for pneumonia, urinary tract infection, protein calorie malnutrition, hypertension, alcohol abuse. He was at home with hospice. Brought to the emergency room by family for unresponsiveness. Suddenly started become less responsive according to the daughters and then stopped breathing. EMS called, patient brought to the hospital. ADMISSION DIAGNOSIS: They revoked hospice and wanted him to go on a ventilator and okay with chest compressions. The patient had General Surgery asked to see for right leg wound. Dr. 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 EXAM: Vitals: Today, temperature 98.1 degrees, pulse 90, respirations 15, blood pressure 154/64. Eyes: Pupils are equal and round. Lungs: Clear in all lung canales. Cardiovascular exam: Regular rhythm and rate without murmur or S3. : Urine output was 2500 mL. ASSESSMENT AND PLAN: 1. Respiratory failure, which resolved. 2. Pneumonia. Continue present antibiotic. Dr. Workman is following. 3. Right leg infection secondary to Staphylococcus epidermis Acinetobacter. Continue antibiotic and wound care. 4. Severe peripheral arterial disease. General Surgery has been evaluating. 5. Severe iron deficiency anemia. 6. Hypertension, which is better controlled. 7. Dementia and behavior disturbance revealed global encephalopathy. Continue Seroquel and Aricept. 8. Hypomagnesemia, replaced. 9. Groin infection. Continue present antibiotics. 10. Leukocytosis shows continued improvement. 11. Deep venous thrombosis prophylaxis on low dose heparin. 12. Continue to pursue physical therapy. REVIEW OF HIS ORDERS: I do not see any change. LABORATORY DATA: Review of his lab: I do not see anything different to review at this time. Sodium is 138, potassium 3.4, chloride 101, BUN is 10, creatinine 1.1. White count [id number], hematocrit is 30, platelet count is 440,000. cc: Abdiel Pretty MD
[2019-06-16] MEDS: REMERON PO SCH (20:31)
[2019-06-17] MEDS: PROTONIX IV SCH (06:38)
[2019-06-17] MEDS: SODIUM CHLORIDE 0.9% INJ SCH (06:38)
[2019-06-17 07:14] LABS: BASO% 0.2 % (0.0-0.8); EOS% 1.2 % (0.0-10.0); HEMATOCRIT 27.5 % (42.0-52.0); HEMOGLOBIN 8.8 g/dL (14.0-18.0); IMM GRAN% 0.5 % (0.0-0.5); LYMPH# 2.04 X1000 (1.2-3.4); LYMPH% 15.9 % (20.5-51.1); MCH 28.5 PG (27-31); MONO% 7.5 % (1.7-9.3); MPV 9.7 FL (7.4-10.4); NEUT# 9.59 X1000 (1.4-6.5); NEUT% 74.7 % (42.2-75.2); PLT 414 X1000 (130-400); RBC 3.09 XMIL (4.7-6.1); RDW 15.4 % (11.5-14.5); WBC 12.86 X1000 (4.8-10.8)
[2019-06-17 07:15] LABS: BASO# 0.03 X1000 (0.0-0.2); EOS# 0.16 X1000 (0.0-0.7); IMM GRAN# 0.07 X1000 (0.0-0.04); MONO# 0.97 X1000 (0.11-0.59)
[2019-06-17] MEDS: ARICEPT PO SCH (08:38)
[2019-06-17] MEDS: SEPTRA DS PO SCH ×2 (08:38→20:16)
[2019-06-17] MEDS: SEROQUEL PO SCH ×2 (08:38→20:16)
[2019-06-17] MEDS: MAG-OX PO SCH (08:38)
[2019-06-17] MEDS: LOPRESSOR PO SCH ×2 (08:38→20:16)
[2019-06-17] MEDS: SANTYL OINT TOP SCH (08:39)
[2019-06-17] MEDS: HEPARIN SUBQ SCH ×2 (08:39→20:16)
--- NOTE | 2019-06-17 10:25 | PROGRESS NOTE ---
DATE: 06/17/2019 OBJECTIVE: Mr. Tijerina is awake, alert, and attentive. He seems brighter and more attentive today than when I last saw him several days ago. He answered some simple questions appropriately. Speech is less dysarthric than several days ago. He turns his head easily from the right to the left without apparent discomfort. IMPRESSION: Global encephalopathy, multiple factors as previously reviewed. I do not have any new thoughts or new suggestions from neurology standpoint today. I agree with current management. Thanks for asking us to see Mr. Tijerina. cc: MD LASHAWN Alcala III
--- NOTE | 2019-06-17 10:32 | Extremity Venous Study ---
PROCEDURE NAME: Venous U/S Bilateral Legs - 06/12/2019 STUDY PERFORMED: Bilateral lower extremity venous duplex study. REQUEST PHYSICIAN: DR. Adkins. READING PHYSICIAN: Dr. Agee. MANAGER OF HOUSEKEEPING: Jaron. INDICATION: Possible DVT seen on CT scan. FINDINGS: The deep and superficial veins of both lower extremities were imaged throughout their course. They are compressible, patent, and without thrombus. INTERPRETATION: No deep vein thrombosis or superficial thrombophlebitis seen on this ultrasound study. cc: MD Kodi Nava MD
--- NOTE | 2019-06-17 12:09 | PROGRESS NOTE ---
DATE: 06/17/2019 SUBJECTIVE: Mr. Tijerina states he feels a little bit better. He is still pretty weak. He remains afebrile. OBJECTIVE: Temperature 97.8 degrees, pulse 90, respirations 20, blood pressure 140/65. Pupils are equal and round. I do not see any distended neck veins. Lungs are clear with no rales anterolaterally. Cardiovascular Examination: Regular rhythm and rate without murmur or S3. Abdomen is soft, nondistended. No pedal edema. Urine output is 2200 mL. ASSESSMENT AND PLAN: 1. Global encephalopathy, multiple factors. Dr. Garrido is following along. 2. Respiratory failure, which has resolved. 3. Pneumonia. Continue present antibiotics. Dr. Dima Workman is following along. 4. Right leg infection secondary to Staphylococcus epidermidis and Acinetobacter. Continue present antibiotic and wound care. 5. Severe peripheral artery disease. General surgery has been evaluating. 6. Severe iron deficiency anemia. 7. Hypertension. Blood pressure is under better control. 8. Dementia with behavior disturbance and global encephalopathy. He is on Seroquel and Aricept. 9. Hypomagnesemia, which has been replaced. 10. Groin infection, improved. 11. Leukocytosis, which continues to improve. 12. Deep venous thrombosis prophylaxis, on heparin. 13. Continue physical therapy. REVIEW OF ORDERS: He is on Remeron 15 mg at bedtime, Seroquel 50 mg at bedtime. He gets topical collagenase, Aricept 5 mg a day, heparin 5000 units subcutaneously getting that q.12 hours, and he is on Protonix 40 mg IV q.24 hours, Seroquel 25 mg every morning and he gets 50 mg at night. He is on Bactrim, I believe, one twice a day, Ativan 1 mg IV q.4 hours p.r.n., hydrocodone 5 one p.o. q.4 hours p.r.n. cc: Abdiel Pretty MD
--- NOTE | 2019-06-17 14:40 | INFECTIOUS DISEASE PROGRESS NO ---
DATE: 06/17/2019 PRESENT ILLNESS: The patient had a pustular rash in both groin areas. The patient in his right leg has a large eschar on the right heel. He also has an open wound on the leg laterally. The patient may have a right lower lobe pneumonia also. MEDICATIONS: The patient is on p.o. Septra. This is day 3 of treatment with it. PHYSICAL EXAMINATION: Vital Signs: Temperature is 98.7 degrees, pulse 83, respirations 18, blood pressure 119/60. General: This is an ill-appearing middle-aged male. He is in no acute distress. Head/eyes/ears/nose/throat: He can hear my spoken words and see near objects. He has poor oral hygiene. He does not have any white coating on his tongue. Neck: No pain with movement. Lungs: Clear to auscultation. Cardiovascular: Heart rate is regular. Abdomen: Soft and nontender. Neurologic: The patient is awake. He can move his extremities. He can carry on a conversation coherently. LAB AND X-RAY: CBC shows a white count of 12,860, hemoglobin 8.8, and platelet count 414,000. Creatinine is 1.1. GFR is greater than 60. There is no new radiographic study today. ASSESSMENT AND PLAN: The patient has an infection on his right leg, including both groin areas; the open wound on the lateral part of the right leg and also the heel with the large eschar on it. The patient also may have pneumonia. I am planning treating all these infections with Septra, which the patient already is receiving. Two days from now I have ordered for a CBC and BMP and a portable chest x-ray to be done. COMORBIDITIES: Alcoholism, dementia, cigarette smoking, malnutrition, and possible seizure. cc: Dima Workman MD
[2019-06-17] MEDS: REMERON PO SCH (20:16)
[2019-06-18] MEDS: SODIUM CHLORIDE 0.9% INJ SCH (06:02)
[2019-06-18] MEDS: PROTONIX IV SCH (06:02)
[2019-06-18] MEDS: SEPTRA DS PO SCH ×2 (09:56→20:21)
[2019-06-18] MEDS: ARICEPT PO SCH (09:56)
[2019-06-18] MEDS: SEROQUEL PO SCH ×2 (09:56→20:21)
[2019-06-18] MEDS: HEPARIN SUBQ SCH ×2 (09:56→20:21)
[2019-06-18] MEDS: LOPRESSOR PO SCH ×2 (09:56→20:21)
--- NOTE | 2019-06-18 09:56 | PROGRESS NOTE ---
DATE: 06/18/2019 Mr. Tijerina feels better feels stronger. He is eating well. The rash seems to be clearing. OBJECTIVE: Vital Signs: Temperature 98.0 degrees pulse 76, respirations 17, blood pressure 142/75. HEENT: Pupils are equal and round. Lungs: Are clear in all lung canales. Cardiovascular: Regular rhythm and rate without murmur or S3. Urine output is 1500 mL. ASSESSMENT AND PLAN: 1. Pustular rash in both groin areas. Patient's right leg is a large eschar in the right heel, open wound in the leg laterally and patient may have a right lower lobe pneumonia. This is day 4 of treatment with Septra. Seems to be improving. 2. Nutrition, eating well. Good p.o. intake. 3. Presented with global encephalopathy. Multiple factors, seems to have improved. 4. Severe peripheral artery disease. 5. Severe iron deficiency anemia. 6. Hypertension. Blood pressure well controlled. 7. Dementia which is part of his presentation global encephalopathy. He is on Seroquel and Aricept. Seems to be doing well. 8. Hypomagnesemia. Continue replace it as needed. 9. Continue physical therapy. Hopefully, he can go home tomorrow. cc: Abdiel Pretty MD
[2019-06-18] MEDS: MAG-OX PO SCH (09:57)
[2019-06-18] MEDS: SANTYL OINT TOP SCH (09:57)
--- NOTE | 2019-06-18 14:55 | INFECTIOUS DISEASE PROGRESS NO ---
DATE: 06/18/2019 PRESENT ILLNESS: Patient has following infection: 1. In the groin, Zulma albicans has been isolated. 2. On the patient's right leg, there is a large eschar on the right heel and he has an open wound laterally on the leg. 3. The patient may still have a right lower lobe pneumonia. MEDICATIONS: The patient is on p.o. Septra for the 4th day. PHYSICAL EXAMINATION: Vital Signs: Temperature is 98 degrees, pulse 76, respirations 17, blood pressure 142/75. General: This is an ill-appearing middle-aged male. He is in no acute distress. Head/eyes/ears/nose/throat: He can hear my spoken words and see near objects. He does not have any white coating on his tongue. Neck: No pain with movement. Lungs: Clear to auscultation. Cardiovascular: Heart rate is regular. Abdomen: Soft and nontender in both groin areas. The pustular rash is clearing. Extremities: The patient's right heel has a large eschar and on the lateral part of the leg there is an open wound. The open wound does not have any purulence and there is no necrotic tissue either. LAB AND X-RAY STUDIES: The CBC today shows a white count of 12,860, hemoglobin 8.8, and platelet count 414,000. The patient's right groin area grew Zulma albicans. ASSESSMENT AND PLAN: As regarding the patient's right leg, I added Lotrimin cream to be placed in both groin areas. I am going to continue with Septra to treat the open wound on the right leg and also the heel with the eschar on it. Also, the Septra hopefully will be clearing up the pneumonia as well. For tomorrow, I am going to order a chest x-ray, CBC, and creatinine. COMORBIDITIES: Alcoholism, dementia, cigarette smoking, malnutrition, and possible seizure. cc: Dima Workman MD MTDD
[2019-06-18] MEDS: REMERON PO SCH (20:21)
[2019-06-18] MEDS: LOTRIMIN 1% CREAM TOP SCH ×2 (20:21→20:22)
[2019-06-19] MEDS: PROTONIX PO SCH (06:44)
--- NOTE | 2019-06-19 06:52 | Diag Imaging Result Doc PS360 ---
EXAM: CHEST-1 VIEW HISTORY: pneumonia TECHNIQUE: Single view COMPARISON: 06/12/2019 FINDINGS: The lungs are well expanded except for right basilar atelectasis. The patient is rotated to the right. There is a right-sided PICC line The heart is not enlarged. The vessels are not distended. There are small right infiltrates. No effusion identified. IMPRESSION: Right-sided atelectasis with small infiltrates "S,'v Electronically signed by Darien Dockery 06/19/2019 6:51 AM
[2019-06-19 07:25] LABS: BASO# 0.03 X1000 (0.0-0.2); BASO% 0.2 % (0.0-0.8); EOS# 0.17 X1000 (0.0-0.7); EOS% 1.2 % (0.0-10.0); HEMOGLOBIN 9.7 g/dL (14.0-18.0); IMM GRAN# 0.08 X1000 (0.0-0.04); IMM GRAN% 0.6 % (0.0-0.5); LYMPH# 3.27 X1000 (1.2-3.4); LYMPH% 23.6 % (20.5-51.1); MCH 28.2 PG (27-31); MCHC 31.3 g/dL (33-37); MCV 90.1 FL (81-99); MONO# 1.06 X1000 (0.11-0.59); MONO% 7.7 % (1.7-9.3); MPV 9.4 FL (7.4-10.4); NEUT# 9.23 X1000 (1.4-6.5); NEUT% 66.7 % (42.2-75.2); PLT 505 X1000 (130-400); RBC 3.44 XMIL (4.7-6.1); RDW 15.7 % (11.5-14.5); WBC 13.84 X1000 (4.8-10.8)
[2019-06-19 07:57] LABS: AGAP 15; BUN 10 mg/dL (8-22); CALCIUM 9.6 mg/dL (8.8-10.2); CHLORIDE 102 mmol/L (98-107); COSMO 281; CREATININE 1.1 mg/dL (0.7-1.2); ESTIMATED GFR > 60; GLUCOSE 105 mg/dL (70-104); POTASSIUM 4.1 mmol/L (3.5-5.1); SODIUM 141 mmol/L (136-145); TCO2 24 mmol/L (25-35)
[2019-06-19] MEDS: ARICEPT PO SCH (11:00)
[2019-06-19] MEDS: SEPTRA DS PO SCH ×2 (11:00→20:34)
[2019-06-19] MEDS: SEROQUEL PO SCH ×2 (11:00→20:34)
[2019-06-19] MEDS: LOPRESSOR PO SCH ×2 (11:00→20:34)
[2019-06-19] MEDS: MAG-OX PO SCH (11:00)
[2019-06-19] MEDS: HEPARIN SUBQ SCH ×2 (11:01→20:34)
[2019-06-19] MEDS: LOTRIMIN 1% CREAM TOP SCH ×2 (11:01→18:54)
[2019-06-19] MEDS: SANTYL OINT TOP SCH (11:04)
--- NOTE | 2019-06-19 12:49 | DISCHARGE SUMMARY ---
ADMISSION DATE: 06/08/2019 DISCHARGE DATE: 06/19/2019 PRIMARY CARE PHYSICIAN: He has no primary care physician. HOSPITAL COURSE: He was on hospice before he came in and he presented on 06/08/2019 because he was not responding. A 63-year-old male who was discharged from service on 05/29/2019 at [facility]. Initially admitted for syncopal episode, found to have a patella fracture and treated by Dr. Mares, Orthopedics. He was found to have pneumonia, urinary tract infection, as well as alcoholic dementia. He has had a lengthy hospital stay. It was complicated. He did clinically improved, was discharged to [facility] per his . He has been in his normal state of health, conversant, eating, taking medications. Stated that the morning of admission, on 06/08/2019, she went to go to fix him an egg around 5:35 and he changed his mind and said he had to use the bathroom. She was cleaning him up. He rolled back over and he looked like he was not breathing, so she shook him a couple of times. She felt he came around, had a faint pulse. However, since that time, he has not been responding. He came to the emergency room, evaluated in the emergency room, found to be septic with questionable urinary tract infection, but possibly could be coming from the wound in his right calf. He was started on broad-spectrum antibiotics, given IV fluids. Family had rescinded hospice care and made him a do not resuscitate level 2, but they wanted CPR, vasopressors, but no intubation. They admitted him to the ICU. PAST MEDICAL HISTORY: Reviewed again. 1. Recent treatment for pneumonia and urinary tract infection. 2. Alcoholic dementia. 3. COPD. 4. Hypertension. 5. Arthritis of left hip. 6. Ethanol abuse. 7. Nicotine dependence. 8. Right patella fracture. ADMISSION DIAGNOSIS: 1. Sepsis. Obtain blood cultures, urine culture. Questionable urinary tract infection. He did have oozing from the right calf and so was put on broad-spectrum antibiotics. Received 2.5 L of fluid, placed on dopamine drip, which they were able to wean. 2. Altered mental status. [place] that was multifactorial but probably due to the sepsis predominantly. Head CT was done without contrast and did not show any acute pathology. He has not been drinking alcohol according to . 3. Acute kidney injury which was hydrated and this showed improvement. 4. Probable wound infection of the right calf and so topical care was applied. Antibiotics given. 5. Hypertension. At the present when he was admitted, he had hypotension, was on dopamine and able to wean that off and given fluids. 6. Hypokalemia. This was supplemented. 7. Patella fracture in the past. He remains in a brace. 8. Nicotine dependence. He was given a nicotine patch. 9. Code status was do not resuscitate level 2. Head CT without contrast, no evidence of acute intracranial process. Foot x-ray 06/08/2019, no visible acute bony abnormality, no indication of osteomyelitis. Chest x-ray on 06/09/2019, increased right basilar atelectasis, otherwise stable CT of the chest. Small right pleural effusion, improved atelectasis versus pneumonia right lower lobe. Extremity arterial study: Bilateral peripheral vascular disease is noted to be severe on the right and at least moderate on the left. The patient's disease may be superficial femoral artery disease on the right but could even be more proximal. They suggested a CT angiography. Dr. Adkins was consulted for General Surgery. Right leg wound, suspect right lower extremity wound was the source of his infection. Microbiology was pending, so continued antibiotics and topical care with Vashe and Santyl cleanser. He showed some improvement. Chest x-ray repeated on 06/11/2019, atelectasis versus pneumonia right lower lobe with a shift to the mediastinum on the right. Another follow-up chest x-ray on 06/12/2019, right lower lobe atelectasis clinically showed improvement. Aorta CT with runoff, deep venous thrombosis in the right common femoral vein, severe atherosclerotic changes in the superficial femoral and popliteal arteries and short-segment occlusions of the distal right superficial femoral artery and occlusive changes in the calf vessels. There is severe urinary cystitis appreciated. Extremity venous studies: No deep venous thrombosis or superficial thrombophlebitis appreciated. The patient showed improvement in chest x-ray on 06/19/2019, right-sided atelectasis but marked improvement, was breathing comfortably. Dr. Workman felt he could probably go home. Not sure if he will be eligible for hospice again. In the groin, he had some Zulma albicans which had been isolated, right leg. There is large eschar on the right heel. He had an open wound lateral in the leg and then right lower lobe pneumonia has been treated, so he is getting Lotrimin cream on both groin areas and continue Septra p.o. for the open wound and right leg. His pneumonia seems to be clearing, so we will let him go home. DISCHARGE MEDICATIONS: 1. Lotrimin 1% cream which is clotrimazole, topically twice a day to affected area. 2. Santyl ointment topically daily. 3. Aricept 5 mg p.o. daily. 4. I will give him some [place] which are 5 mg q.4 hours p.r.n. I will give him 20 of those. 5. Mag-Ox 400 mg a day. 6. Lopressor 50 mg b.i.d. 7. Remeron 15 mg at bedtime. 8. Protonix 40 mg daily. 9. Seroquel 50 mg at bedtime and 25 mg in the morning. 10. Septra Double Strength 1 twice a day, which he will take for a couple of weeks. cc: Abdiel Pretty MD
--- NOTE | 2019-06-19 13:02 | INFECTIOUS DISEASE PROGRESS NO ---
DATE: 06/19/2019 PRESENT ILLNESS: The patient has a Zulma groin infection on his right leg. He has an eschar on the heel and an open wound laterally. The patient also had a small right lower lobe pneumonia. MEDICATIONS: The patient is being sent home today on doxycycline. Some of the side effects of the antibiotic including rash and diarrhea have been explained to the patient's . She agrees with treatment. PHYSICAL EXAMINATION: Vital Signs: Temperature is 98.4 degrees, pulse 80, respirations 16, blood pressure 145/71. General: This is an ill-appearing middle-aged male. He is in no acute distress. Head/eyes/ears/nose/throat: He can hear my spoken words and see near objects. He does not have any white patches in his mouth. Neck: No pain with movement. Lungs: Clear to auscultation. Cardiovascular: Regular heart rate. Abdomen: Both groin areas are clearing up. There are no pustules present, and the rash is clearing up. Extremities: The patient still has a large eschar on his right heel and on the lateral wound. It is getting smaller, and there is no erythema or purulence. Neurologic: The patient is awake. He can move his extremities. LAB AND X-RAY: CBC shows a white count of 13,840, hemoglobin 9.7, and platelet count 505,000. Creatinine is 1.1. GFR is greater than 60. Chest x-ray shows a small right basilar atelectasis versus infiltrate. The patient has a PICC in his right arm. ASSESSMENT AND PLAN: The patient had infection in the groin area and on his right leg and right heel. He also has a small pneumonia. The plan is to send the patient home on Lotrimin cream for the groin infection and doxycycline for the other infections. Some of the side effects of the antibiotic including rash and diarrhea have been explained to the patient and his . The agrees with treatment and so does the patient. I have requested that the patient come to my office in 10 days for a followup appointment. COMORBIDITIES: Alcoholism, dementia, cigarette smoking, malnutrition, and possible seizure. cc: Dima Workman MD
--- NOTE | 2019-06-19 14:41 | PROGRESS NOTE ---
DATE: 06/19/2019 ADDENDUM: He still has a Poole catheter and he has not been able to walk. We need to pull out his PICC line. His would like to take him home, but I do not think she can take him home yet. We have to continue physical therapy and occupational therapy. We will take out his PICC line and Poole catheter and see if we can get things ready. He will not be eligible for hospice so we will see. I think we need to take a little more time in if she is going to be able to take him home. Otherwise, I fear he will have to come right back in the hospital. cc: Abdiel Pretty MD
[2019-06-19] MEDS: REMERON PO SCH (20:34)
[2019-06-20] MEDS: ATIVAN IV PRN (00:55)
[2019-06-20] MEDS: NORCO-5 PO PRN (01:02)
[2019-06-20] MEDS: PROTONIX PO SCH (05:28)
[2019-06-20] MEDS: LOTRIMIN 1% CREAM TOP SCH ×2 (05:28→17:40)
[2019-06-20] MEDS: LOPRESSOR PO SCH ×2 (09:29→21:50)
[2019-06-20] MEDS: SEPTRA DS PO SCH ×2 (09:29→21:50)
[2019-06-20] MEDS: ARICEPT PO SCH (09:29)
[2019-06-20] MEDS: SEROQUEL PO SCH ×2 (09:29→21:50)
[2019-06-20] MEDS: HEPARIN SUBQ SCH ×2 (09:30→21:50)
[2019-06-20] MEDS: MAG-OX PO SCH (09:30)
[2019-06-20] MEDS: SANTYL OINT TOP SCH (09:30)
--- NOTE | 2019-06-20 10:57 | PROGRESS NOTE ---
DATE: 06/20/2019 SUBJECTIVE: Mr. Tijerina is feels better. The Poole catheter is out. He looks stronger. I looked at the wound on his leg and it looks much better. No sign of drainage. So, work on his strength and hopefully he can go home soon. OBJECTIVE: Temperature 98.2 degrees, pulse 52, respirations 20, blood pressure 158/79. Pupils are equal and round. Lungs are clear in all lung canales. Cardiovascular, regular rhythm and rate without murmur or S3. Urine output is 2300 mL. ASSESSMENT AND PLAN: 1. The patient had Zulma groin infection in the right leg, eschar on heel and a wound laterally. This seems to all be healing well. He had a right lower lobe pneumonia. All of this seems to be resolving. We were trying to send him home on doxycycline. He is very weak and so we got his Poole catheter out yesterday, working on physical therapy. He will not be eligible for home health or for hospice, so I want him to be able to get around. 2. Weakness and deconditioning. That is improving. 3. Oral intake seems to be doing well. 4. Presented with global encephalopathy and that is improved. 5. Severe peripheral artery disease. 6. Iron deficiency anemia. 7. History of hypertension. 8. History of dementia. REVIEW OF ORDERS: I do not see any change. He is on Remeron 15 mg at bedtime, Seroquel 50 mg p.o. at bedtime, topical clotrimazole, Aricept 5 mg, magnesium oxide 400 mg a day, metoprolol 50 mg b.i.d., Seroquel 25 mg q.a.m., Protonix 40 mg p.o. daily. cc: Abdiel Pretty MD
[2019-06-20] MEDS: ATIVAN PO PRN ×2 (17:39→23:31)
[2019-06-20] MEDS: REMERON PO SCH (21:50)
[2019-06-21] MEDS: LOTRIMIN 1% CREAM TOP SCH ×2 (07:55→18:19)
[2019-06-21] MEDS: PROTONIX PO SCH ×2 (07:55→09:27)
--- NOTE | 2019-06-21 08:33 | PROGRESS NOTE ---
DATE: 06/21/2019 SUBJECTIVE: Mr. Tijerina had a good night, slept good. He is walking. Seems to be a little stronger. OBJECTIVE: Temperature 98.2 degrees, pulse 95, respirations 18, blood pressure 148/71. Pupils are equal and round. Lungs are clear in all lung canales. Cardiovascular Examination: Regular rhythm and rate without murmur or S3. Abdomen is soft. Skin is warm and dry. His leg wounds seem to be healing. Urine output was 1200 mL. ASSESSMENT AND PLAN: 1. Patient with zhang-growing infection in the right leg, eschar in the heel. Wound laterally seems to be healing well. I think he will be ready to go home tomorrow. He will not be eligible for any home health or hospice, so continue physical therapy. His Poole catheter is out. 2. Weakness and deconditioning, improving. 3. Oral intake is doing better. 4. Global encephalopathy. He presented with global encephalopathy and this improved. 5. Severe peripheral artery disease. 6. Iron deficiency anemia. 7. Hypertension. 8. Dementia. REVIEW OF HIS ORDERS: I do not see any change. LABS: Most recent labs on the , white count was 13,840, hematocrit was 31, hemoglobin 9.7, platelet count 505,000. Electrolytes: Sodium 141, potassium 4.1, chloride 102, BUN 10, creatinine 1.1. cc: Abdiel Pretty MD
[2019-06-21] MEDS: ARICEPT PO SCH (09:17)
[2019-06-21] MEDS: MAG-OX PO SCH (09:17)
[2019-06-21] MEDS: SEROQUEL PO SCH ×2 (09:18→22:25)
[2019-06-21] MEDS: HEPARIN SUBQ SCH ×2 (09:18→22:25)
[2019-06-21] MEDS: SEPTRA DS PO SCH ×2 (09:18→22:25)
[2019-06-21] MEDS: LOPRESSOR PO SCH ×2 (09:18→22:25)
[2019-06-21] MEDS: SANTYL OINT TOP SCH (09:20)
[2019-06-21] MEDS: ATIVAN PO PRN (13:17)
[2019-06-21] MEDS: REMERON PO SCH (22:25)
[2019-06-22] MEDS: ATIVAN PO PRN (00:44)
[2019-06-22] MEDS: LOTRIMIN 1% CREAM TOP SCH (06:30)
[2019-06-22] MEDS: PROTONIX PO SCH ×2 (07:00→07:44)
[2019-06-22] MEDS: SEPTRA DS PO SCH (08:54)
[2019-06-22] MEDS: HEPARIN SUBQ SCH (08:54)
[2019-06-22] MEDS: ARICEPT PO SCH (08:54)
[2019-06-22] MEDS: SEROQUEL PO SCH (08:54)
[2019-06-22] MEDS: LOPRESSOR PO SCH (08:54)
[2019-06-22] MEDS: MAG-OX PO SCH (08:54)
[2019-06-22] MEDS: SANTYL OINT TOP SCH (08:58)
--- NOTE | 2019-06-22 10:56 | DISCHARGE SUMMARY ---
ADMISSION DATE: 06/08/2019 DISCHARGE DATE: 06/22/2019 PRIMARY CARE PHYSICIAN: He has no primary care physician. HISTORY OF PRESENT ILLNESS: He was home under the care of hospice and the family brought him in. He was not responding, altered mental status. A 63-year-old, male who was discharged from our service back on 05/29/2019 under [facility]. Initially admitted with syncopal episode. Found to have patellar fracture, treated by Dr. Mares. Found to have pneumonia, urinary tract infection, as well as alcoholic dementia. Had a lengthy stay which was complicated. He did improve and was released home with [facility]. stated that he was in his normal state of health, conversing, eating, taking his medication when it was crushed. Stated that the morning of admission, on 06/08/2019, she went to fix him an egg around 5:45. He changed his mind and said he had to use the bathroom. She was cleaning him up, rolled him over, and she did not feel he was breathing. Shook him a couple times. [place] he had a faint pulse and he had not been responding so brought him to the emergency room. Found to be septic. [place] he had urosepsis from a urinary tract infection and possibly from the wound in his right calf. He was started on broad-spectrum antibiotics and he wanted to remain a Do Not Resuscitate level 2. PAST MEDICAL HISTORY: Reviewed again. 1. Recent treatment for pneumonia and urinary tract infection. 2. Alcoholic dementia. 3. COPD. 4. Hypertension. 5. Arthritis of the left hip. 6. Ethanol abuse. 7. Nicotine dependence. 8. Right patella fracture. ADMISSION DIAGNOSES: 1. Sepsis, felt from urinary tract, possibly from his leg wounds as well. Put on broad-spectrum antibiotics. His leg wounds were having some oozing and appeared to be more irritated. Put on broad-spectrum antibiotics. 2. Altered mental status. [place] it was multifactorial but infection was contributing. Also history of alcoholic dementia. 3. Acute kidney injury. [place] he was dehydrated and gave him some fluids. 4. Probable wound infection in his right calf. Topical care and antibiotics were applied, and re- evaluation. 5. Hypotension. He has a history of hypertension but came in hypotensive. Put on some dopamine and given fluids. 6. Hypokalemia. This was supplemented. 7. Recent patella fracture. Aware. 8. Nicotine dependence. Put on a nicotine patch. HOSPITAL COURSE: The patient had a head CT without contrast. No evidence of acute intracranial process. Had a foot x-ray on 06/08/2019. No visible acute abnormality. No indication of osteomyelitis but early osteomyelitis could be radiographically occult. Chest x-ray, increased right basilar atelectasis, otherwise unremarkable. Chest CT, small right pleural effusion, improved atelectasis versus right lower lobe pneumonia. Had extremity arterial study on 06/09/2019, bilateral peripheral vascular disease noted to be severe on the right and at least moderate on the left, superficial femoral artery disease on the right but could even be more proximal. The patient has low likelihood of wound healing with this. Nonetheless, his wounds did seem to improve. General surgery was involved. Right leg wound, suspect right lower extremity wound was the source of his infection so continued antibiotics and using Vashe and Santyl cleanser. Blood pressure came up. Followup chest x-ray on 06/11/2019, atelectasis versus pneumonia in the right lower lobe with a shift to the mediastinum to the right. He had a CT of the aorta with runoff. Deep venous thrombosis in the right common femoral vein, severe atherosclerotic changes in the superficial femoral and popliteal arteries, and short-segment occlusion in the distal right superficial femoral artery, occlusive changes in the calf vessels described as well, severe urinary cystitis was noted. Repeat chest x-ray on 06/12/2019, right lower lobe atelectasis clinically improving. Had extremity venous study done. No deep venous thrombosis or superficial thrombophlebitis found on ultrasound in his lower extremities. Dr. Garrido was asked to help with his confusion. [place] he had global encephalopathy, likely multifactorial, significant in contribution from his baseline, likely alcoholic dementia and superimposed toxic-metabolic disturbances, alcohol consumption, and also possibility of withdrawal still. His mental status seemed to improve and he showed progression. Was able to take out his Poole catheter and start physical therapy. Chest x-ray on 06/12/2019, right-sided atelectasis, small infiltrates. He remained afebrile. His labs on the , white count 13,840, hematocrit 31, hemoglobin 9.7, platelet count 505,000. Sodium 141, potassium 4.1, chloride 102, BUN 10, creatinine 1.1. I felt the patient could go home. He will not be eligible for hospice or home care. She was asking about a hospital bed. I think she will have to probably look for one and buy this herself. At discharge, he will take the Lotrimin 1% cream topically twice a day, Santyl ointment, Aricept 5 mg a day, heparin 5000 mg will be stopped. [place], I will give just a couple that he can take p.r.n., magnesium oxide 400 mg a day, Lopressor 50 mg b.i.d., Remeron 15 mg at bedtime, Protonix 40 mg a day, Seroquel 25 mg in the morning and 50 mg at night, and Septra DS 1 twice a day. Follow up with Dr. Workman in a couple weeks. I encouraged her to find a primary health care provider. cc: Abdiel Pretty MD
[2019-06-22 12:29] VITALS: BP 95/51
== END 2019-06-22 17:17 | disposition home or self-care (01) | DRG 871 ==
LOC: SUPCPDRO → ED 07:14 → ICU 12:40 → SUATTDRO 12:40 → 2N 06-11 11:10 → 4N 06-15 11:10
PROVIDERS: ATTEND Emergency Medicine